=== PATIENT | male | born 1930 | race Caucasian/White ===

== ENCOUNTER 2016-11-25 10:58 | Inpatient (IN) | payer BC, OTHER ==
[~2016-11-25] VITALS: Ht 188 cm; Wt 72.8 kg
[2016-11-25] MEDS ORDERED: TAMS0.4C38 PO (11:24)
[2016-11-25] MEDS ORDERED: SODIUM CHLORIDE 0.9% 1000ML 1,000 ML IV SCH ×2 (11:32→15:00)
[2016-11-25] MEDS ORDERED: ONDANSETRON INJ 2 MG/ML 2 ML VIAL IV STA (11:32)
[2016-11-25 11:47] LABS: BASO % 0.1 %; BASO ABS # 0.01 K/uL (0-0.2); COMPLETE YES; EOS % 0.4 %; HEMATOCRIT 35.6 % (42-52); IG% 0.1 %; LYMPH % 4.5 %; LYMPH ABS # 0.35 K/uL (1.2-3.4); MEAN CELL VOLUME 93.9 fL (80-100); MEAN CORPUSCULAR HEMOGLOBIN 31.9 pg (25-34); MEAN PLATELET VOLUME 10.5 fL (7.4-10.4); MONO % 5.6 %; NEUT % 89.3 %; PLATELET COUNT 161 K/uL (130-400); RED BLOOD COUNT 3.79 M/uL (4.7-6.1); WHITE BLOOD COUNT 7.82 K/uL (4.8-10.8)
[2016-11-25 11:54] LABS: BUN/CREATININE RATIO 28.8 (10-20); CALCIUM 8.2 mg/dl (8.5-10.1); CREATININE 1.2 mg/dl (0.60-1.40); POTASSIUM 3.9 mmol/L (3.5-5.1)
[2016-11-25 11:55] LABS: PROTHROMBIN TIME (PATIENT) 10.8 SECONDS (9.0-12.0)
--- NOTE | 2016-11-25 12:09 | EMERGENCY ROOM VISIT NOTE ---
History Report prepared by Eri: Andrés Cruz Under the Supervision of: Dr. Emeka Mathis M.D. First contact with patient: 11:29 Chief Complaint: SYNCOPE Stated Complaint: SEIZURE Nursing Triage Summary: pt to [facility] ED via EMS after having a sycopal episode last night and then again today where he fell and his witnessed with n/v and incont. of urine and bowel and has c/o left shoulder pain and dizziness pt lives in [facility] with his no numbness or tingling History of Present Illness The patient is a 86 year old male who presents to the Emergency Room with complaints of two episodes of syncope occurring last night and this morning. The patient additionally complains of nausea, vomiting, diarrhea, and a lot of gas. The patient states that he fell during these episodes. The patient denies any abdominal pain. Source of History: patient Onset: last night and this morning Position: other (global) Quality: other (syncopal episodes) Associated Symptoms: + diarrhea, + nausea, + vomiting, No abdominal pain Review of Systems See HPI for pertinent positives & negatives. A total of 10 systems reviewed and were otherwise negative. Past Medical & Surgical Medical Problems: (1) Emphysema lung Family History No pertinent family history Social History Smoking Status: Former Smoker Marital Status: Housing Status: lives with family Occupation Status: retired Current/Historical Medications Scheduled Tamsulosin Hcl (Flomax), 0.4 MG PO HS Allergies Coded Allergies: Penicillins (Verified Allergy, Unknown, HIVES, 11/25/16) Physical Exam Vital Signs Date Time Temp Pulse Resp B/P Pulse Ox O2 Delivery O2 Flow Rate FiO2 11/25/16 14:26 38.1 82 22 133/63 93 Room Air 11/25/16 12:37 72 22 129/61 97 83 136/55 11/25/16 11:02 36.8 63 22 127/67 94 Room Air 11/25/16 11:02 71 Physical Exam CONSTITUTIONAL: Mild distress HEENT: No icterus, moist mucous membranes NECK: No meningismus, trachea is midline. CARDIOVASCULAR: Regular rate, normal perfusion RESPIRATORY: Unlabored breathing. Clear to auscultation. GASTROINTESTINAL: Non-tender GENITOURINARY: No flank tenderness MUSCULOSKELETAL: Full range of motion NEUROLOGIC: No acute gross focal deficits. PSYCHIATRIC: Normal affect SKIN: Normal for ethnicity. Medical Decision & Procedures ER Provider Diagnostic Interpretation: Radiology results as stated below per my review and radiologist interpretation. CT SCAN OF THE BRAIN WITHOUT IV CONTRAST CLINICAL HISTORY: Strokelike symptoms. COMPARISON STUDY: No priors. TECHNIQUE: Unenhanced axial CT scan of the brain is performed from the vertex to the skull base. CT DOSE: 614.27 mGy.cm FINDINGS: Brain parenchyma: There are age-related involutional changes noting moderate patchy subcortical and periventricular microangiopathic change. There is no hemorrhage, mass effect, or evidence of acute territorial ischemia by CT criteria. Lomeli-white matter is preserved. No extra-axial fluid collection is seen. Ventricles, sulci, cisterns: Prominent secondary to involutional change. Intracranial vasculature: There is atherosclerotic calcification of the cavernous carotid and vertebral arteries. Calvarium: Unremarkable. Sinuses and mastoids: Trace mucosal thickening is seen in the right maxillary antrum. The remaining visualized paranasal sinuses are clear. The mastoid air cells are well pneumatized. Orbits: The bony orbits are grossly intact. There are bilateral ocular lens implants. There is been banding of the right ocular globe. IMPRESSION: Senescent changes as above with no hemorrhage, mass effect, or evidence of acute territorial ischemia by CT criteria. Electronically signed by: Florian Quinn M.D. 11/25/2016 12:08 PM Dictated Date/Time: 11/25/2016 12:05 PM SINGLE VIEW CHEST CLINICAL HISTORY: Fever. Seizure. FINDINGS: An AP, portable, upright chest radiograph is obtained. No prior studies are available for comparison at the time of dictation. The examination is degraded by portable technique and patient rotation. The heart is enlarged and there is atherosclerotic calcification of the thoracic aorta. The pulmonary vasculature is noncongested. Emphysema and interstitial thickening are identified. Patchy airspace consolidation is seen at the right lung base and there are small pleural effusions. Apical scarring is observed. No pneumothorax is seen. The skeletal structures are osteopenic. The bony thorax is grossly intact. IMPRESSION: 1. Cardiomegaly and emphysema. 2. There is patchy airspace consolidation at the right lung base. Correlate clinically for evidence of an infectious/inflammatory pneumonitis. Radiographic follow-up to resolution is recommended. 3. Small pleural effusions. Electronically signed by: Florian Quinn M.D. 11/25/2016 12:53 PM Dictated Date/Time: 11/25/2016 12:52 PM Laboratory Results 11/25/16 10:38 Red Blood Count 3.79, Mean Corpuscular Volume 93.9, Mean Corpuscular Hemoglobin 31.9, Mean Corpuscular Hemoglobin Concent 34.0, Mean Platelet Volume 10.5, Neutrophils (%) (Auto) 89.3, Lymphocytes (%) (Auto) 4.5, Monocytes (%) (Auto) 5.6, Eosinophils (%) (Auto) 0.4, Basophils (%) (Auto) 0.1, Neutrophils # (Auto) 6.98, Lymphocytes # (Auto) 0.35, Monocytes # (Auto) 0.44, Eosinophils # (Auto) 0.03, Basophils # (Auto) 0.01 11/25/16 10:38 Test 11/25/16 10:38 11/25/16 11:40 11/25/16 12:22 11/25/16 14:25 White Blood Count 7.82 K/uL (4.8-10.8) Red Blood Count 3.79 M/uL (4.7-6.1) Hemoglobin 12.1 g/dL (14.0-18.0) Hematocrit 35.6 % (42-52) Mean Corpuscular Volume 93.9 fL (80-100) Mean Corpuscular Hemoglobin 31.9 pg (25-34) Mean Corpuscular Hemoglobin Concent 34.0 g/dl (32-36) Platelet Count 161 K/uL (130-400) Mean Platelet Volume 10.5 fL (7.4-10.4) Neutrophils (%) (Auto) 89.3 % Lymphocytes (%) (Auto) 4.5 % Monocytes (%) (Auto) 5.6 % Eosinophils (%) (Auto) 0.4 % Basophils (%) (Auto) 0.1 % Neutrophils # (Auto) 6.98 K/uL (1.4-6.5) Lymphocytes # (Auto) 0.35 K/uL (1.2-3.4) Monocytes # (Auto) 0.44 K/uL (0.11-0.59) Eosinophils # (Auto) 0.03 K/uL (0-0.5) Basophils # (Auto) 0.01 K/uL (0-0.2) RDW Standard Deviation 47.4 fL (36.4-46.3) RDW Coefficient of Variation 13.8 % (11.5-14.5) Immature Granulocyte % (Auto) 0.1 % Immature Granulocyte # (Auto) 0.01 K/uL (0.00-0.02) Prothrombin Time 10.8 SECONDS (9.0-12.0) Prothromb Time International Ratio 1.0 (0.9-1.1) Activated Partial Thromboplast Time 25.0 SECONDS (21.0-31.0) Partial Thromboplastin Ratio 1.0 Anion Gap 10.0 mmol/L (3-11) Est Creatinine Clear Calc Drug Dose 49.7 ml/min Estimated GFR () 63.5 Estimated GFR (Non- 54.8 BUN/Creatinine Ratio 28.8 (10-20) Calcium Level 8.2 mg/dl (8.5-10.1) Total Bilirubin 0.9 mg/dl (0.2-1) Direct Bilirubin 0.2 mg/dl (0-0.2) Aspartate Amino Transf (AST/SGOT) 20 U/L (15-37) Alanine Aminotransferase (ALT/SGPT) 25 U/L (12-78) Alkaline Phosphatase 54 U/L (45-117) Total Protein 7.0 gm/dl (6.4-8.2) Albumin 3.6 gm/dl (3.4-5.0) Procalcitonin 0.15 ng/mL (0-0.5) Bedside Prothrombin Time INR 1.1 (0.9-1.1) Bedside Glucose 119 mg/dl (70-99) Bedside Lactic Acid Venous 1.62 mmol/L (0.90-1.70) Test 11/25/16 14:30 Labs reviewed by ED physician. Medications Administered Medications (Trade) Dose Ordered Sig/Duke Route Start Time Stop Time Status Last Admin Dose Admin Sodium Chloride (Nss 1000ml) 1,000 ml @ 50 mls/hr Q20H IV 11/25/16 11:32 12/25/16 11:31 11/25/16 12:36 50 MLS/HR ECG Indication: syncope Rate (beats per minute): 64 Rhythm: atrial fibrillation Findings: other (Normal axis, non-specific ST findings) ED Course 1129: Past medical records reviewed. The patient was evaluated in room C9. A complete history and physical examination was performed. 1132: Sodium Chloride 1000 ml @ 50 mls/hr IV 1430: I reevaluated the patient, and discussed the findings and the treatment plan with him. 1441: I discussed the patient's case with Dr. Funez. He is going to evaluate the patient for further treatment Medical Decision Differential diagnoses include but are not limited to; sepsis, stroke, gastroenteritis. 86 y/o presented to the ED from [facility] for evaluation. Patient appears generally weak and unwell although he is oriented to person, place and time. He notes only feeling unwell with some nausea and loose stools. Transfer paperwork reviewed and notable for temperature of 100.6. No further information was initially known. Family later arrived at bedside and informed me that the history was likely consistent with a gastroenteritis followed by syncope and aspiration. Son-in-law noted patient to be in A. fib on monitor ( not normally in afib). Followed by the [facility] . (?) infiltrate versus chemical pneumonitis on CXR. Admission arranged with [facility] physician group. Consults Time Called: 1435 Consulting Physician: Dr. Levine Returned Call: 1441 I discussed the patient's case with Dr. Funez. He is going to evaluate the patient for further treatment Impression Primary Impression: Gastroenteritis Additional Impressions: Aspiration into respiratory tract Syncope A-fib Scribe Attestation The scribe's documentation has been prepared under my direction and personally reviewed by me in its entirety. I confirm that the note above accurately reflects all work, treatment, procedures, and medical decision making performed by me. Departure Information Dispostion Being Evaluated By Hospitalist Debora Marrufo M.D. (PCP) Problem Qualifiers
--- NOTE | 2016-11-25 12:54 | DIAGNOSTIC IMAGING REPORT ---
SINGLE VIEW CHEST CLINICAL HISTORY: Fever. Seizure. FINDINGS: An AP, portable, upright chest radiograph is obtained. No prior studies are available for comparison at the time of dictation. The examination is degraded by portable technique and patient rotation. The heart is enlarged and there is atherosclerotic calcification of the thoracic aorta. The pulmonary vasculature is noncongested. Emphysema and interstitial thickening are identified. Patchy airspace consolidation is seen at the right lung base and there are small pleural effusions. Apical scarring is observed. No pneumothorax is seen. The skeletal structures are osteopenic. The bony thorax is grossly intact. IMPRESSION: 1. Cardiomegaly and emphysema. 2. There is patchy airspace consolidation at the right lung base. Correlate clinically for evidence of an infectious/inflammatory pneumonitis. Radiographic follow-up to resolution is recommended. 3. Small pleural effusions. Electronically signed by: Florian Quinn M.D. 11/25/2016 12:53 PM Dictated Date/Time: 11/25/2016 12:52 PM
[2016-11-25] MEDS ORDERED: MAGNESIUM HYDROXIDE SUSP 30 ML UDC PO PRN (14:45)
[2016-11-25] MEDS ORDERED: ALUMINUM/MAGNESIUM/SIMETH (MAALOX MAX) 30 ML UDC PO PRN (14:45)
[2016-11-25] MEDS ORDERED: POLYETHYLENE (MIRALAX) 17 GM PACK PO PRN (14:45)
[2016-11-25 15:31] LABS: MANUAL MICROSCOPIC REQUIRED? YES; REVIEW REQ? NO; URINE APPEARANCE CLEAR (CLEAR); URINE BILIRUBIN NEG (NEG); URINE COLOR YELLOW; URINE NITRITE NEG (NEG); URINE SPECIFIC GRAVITY 1.025 (1.000-1.030); UROBILINOGEN NEG (NEG)
[2016-11-25 15:38] LABS: BENZODIAZEPINE, URINE NEG (NEG); COCAINE,URINE NEG (NEG); PHENCYCLIDINE, URINE NEG (NEG)
[2016-11-25 15:43] LABS: URINE BACTERIA NEG (NEG)
[2016-11-25] MEDS ORDERED: ASPIRIN 81 MG ECTAB PO STA (15:48)
[2016-11-25 15:49] LABS: ZZUR CULT IF INDIC CLEAN CATCH NO
[2016-11-25 16:05] VITALS: BP 128/64; TEMP 38.3; O2SAT 91; Ht 188 cm; Wt 72.8 kg
--- NOTE | 2016-11-25 16:15 | HISTORY & PHYSICAL EXAMINATION ---
DATE OF ADMISSION: 11/25/2016 CHIEF COMPLAINT: Syncope. HISTORY OF PRESENT ILLNESS: This is an 86-year-old male who presents to Emergency Room complaining of 2 episodes of syncopal episode that occurred last night and this morning. He also complains of nausea, vomiting, diarrhea and some gas. ER doctor also mentioned that patient may have aspirated some fluid. The patient denies any abdominal pain. The patient knows that if he feels unwell and complaints of nausea and loose stools, transfer paperwork from [facility] notable for temperature of 100.6. he was experiencing symptoms of gastroenteritis followed by syncope as per daughter. REVIEW OF SYSTEMS: Negative except as above. Ten out of 14 systems were reviewed. PAST MEDICAL HISTORY: Significant for aFib, gastroenteritis, and BPH. FAMILY HISTORY: Significant for coronary artery disease. SOCIAL HISTORY: Does not smoke, does not drink, does not use any drugs and lives at [facility]. CURRENT MEDICATIONS: Tamsulosin 0.4 mg p.o. at bedtime. ALLERGIES: PENICILLIN. PHYSICAL EXAMINATION: VITAL SIGNS: Temperature 38.1, pulse 82, respirations 22, blood pressure 150/90 mmhg on monitor, 93% sats on room air. GENERAL: In mild distress. HEENT: Normocephalic, atraumatic. PERRLA, EOMI. Mouth moist, no lesions. NECK: No JVD. Trachea midline. Thyroid is not enlarged. LUNGS: Clear to auscultation bilateral. No wheezes, no rhonchi. HEART: S1, S2, RRR. ABDOMEN: Soft, nontender, nondistended. Bowel sounds present bilateral. BACK: No CVA tenderness. No flank tenderness. NEUROLOGICAL: Alert, oriented x3. Motor sensory normal. Deep tendon reflexes 2+ bilateral. Babinski negative. EXTREMITIES: 2+ pitting edema b/l PSYCHIATRIC: Mood and judgment are normal. SKIN: No rash. No jaundice. DIAGNOSTIC INTERPRETATION: CT scan of the head - senescent changes, no hemorrhage, no acute territorial ischemia. Chest x-ray - cardiomegaly and emphysema, patchy airspace consolidation in the right lung base, could be infectious or inflammatory pneumonitis, small pleural effusions. LABORATORIES: White count of 7.8, hemoglobin of 12.1, platelets 161. Sodium 143, potassium 3.9, chloride 111, CO2 of 22, BUN of 35, creatinine 1.2, glucose of 142. Calcium 8.2, total bilirubin 0.9. LFTs were normal. Total protein 7.0, albumin 3.6, lactic acid venous 1.62. EKG - 64 beats per minute, atrial fibrillation. ASSESSMENT AND PLAN: This is an 86-year-old male who comes with nausea, vomiting, diarrhea, aspiration and fall. 1. Syncopal episode in the setting of gastroenteritis. The patient received some IV hydration in the Emergency Room. Will order an echo to rule out cardiogenic causes for syncopal episode. However, likely his symptoms related to gastroenteritis and dehydration. 2. Gastroenteritis, cont symptomatic treatment, on clear diet, advance diet as tolerated 3. Dehydration, patient received IVF in ER, but will limit it due to LE edema. 4. Suspected aspiration pneumonitis. Start patient on IV clindamycin since he is ALLERGIC TO PENICILLIN and repeat chest x-ray in am, blood cultures were collected in the Emergency Room. His lactic acid was 1.62. 5. History of atrial fibrillation, but was in normal sinus rhythm for quite some time, currently in atrial fibrillation. He is not on any rate control medicines and his heart rate is in 70s-80s. We will continue to monitor his heart rate. Will start him on aspirin 81 mg daily. 6. Lower extremity edema. Chest x-ray indicating that patient has cardiomegaly. We need to rule out congestive heart failure. Will check echo. We will check intake and output and will check daily weights. Will also limit number of IV fluids and we will repeat the chest x-ray in the morning to see if patient would require IV Lasix. Insert ro catheter. 5. Deep venous thrombosis and gastrointestinal prophylaxis. The patient is a full code. Time spent on doing this admission 50 minutes. MTDD
[2016-11-25 16:23] VITALS: BP 128/64; PULSE 71; TEMP 38.3; O2SAT 91
[2016-11-25] MEDS: CLINDAMYCIN IV 600 MG in DEXTROSE 5% ADD-VANTAGE 50ML 50 ML IV SCH (16:50)
[2016-11-25 19:45] VITALS: BP 133/57; PULSE 73; TEMP 36.9; O2SAT 94
[2016-11-25 20:00] VITALS: O2SAT 94
[2016-11-25] MEDS: TAMSULOSIN HCL 0.4 MG CAP PO SCH (20:52)
[2016-11-25] MEDS: HEPARIN SOD 5000 UNIT/0.5 ML CARP SQ SCH (20:55)
[2016-11-25 23:22] VITALS: BP 103/50; PULSE 75; TEMP 36.4; O2SAT 94
[2016-11-26] VITALS (9 sets, daily range): BP systolic 97–117; BP diastolic 44–58; PULSE 46–69; TEMP 36.4–37.9; O2SAT 93–94
[2016-11-26] MEDS: CLINDAMYCIN IV 600 MG in DEXTROSE 5% ADD-VANTAGE 50ML 50 ML IV SCH ×3 (00:22→15:32)
[2016-11-26 06:32] LABS: BASO % 0.1 %; BASO ABS # 0.01 K/uL (0-0.2); COMPLETE YES; EOS % 0.1 %; HEMATOCRIT 32.5 % (42-52); IG% 0.1 %; LYMPH % 8.2 %; LYMPH ABS # 0.61 K/uL (1.2-3.4); MEAN CELL VOLUME 94.2 fL (80-100); MEAN CORPUSCULAR HEMOGLOBIN 31.3 pg (25-34); MEAN CORPUSCULAR HGB CONC 33.2 g/dl (32-36); MEAN PLATELET VOLUME 9.3 fL (7.4-10.4); MONO % 8.9 %; NEUT % 82.6 %; PLATELET COUNT 141 K/uL (130-400); RED BLOOD COUNT 3.45 M/uL (4.7-6.1)
[2016-11-26 07:05] LABS: BUN/CREATININE RATIO 25.6 (10-20); CREATININE 1.1 mg/dl (0.60-1.40); POTASSIUM 3.8 mmol/L (3.5-5.1)
--- NOTE | 2016-11-26 07:20 | DIAGNOSTIC IMAGING REPORT ---
CHEST ONE VIEW PORTABLE CLINICAL HISTORY: Congestive heart failure. COMPARISON STUDY: Chest radiograph November 25, 2016. FINDINGS: Extensive right lung airspace opacities have progressed since prior exam of November 25, 2016. There may be trace bilateral pleural effusions. No pneumothorax is present. Cardiac size is normal. Mediastinal contours are normal. IMPRESSION: Significant progression of right lung airspace opacity. The appearance favors pneumonia although asymmetric pulmonary edema could appear similar. Electronically signed by: Raymond Leon M.D. 11/26/2016 7:18 AM Dictated Date/Time: 11/26/2016 7:17 AM
[2016-11-26] MEDS ORDERED: PERFLUTREN LIPID MICROSPHERE (DEFINITY) IV ONE (07:52)
[2016-11-26] MEDS: ASPIRIN 81 MG ECTAB PO SCH (08:23)
[2016-11-26] MEDS: HEPARIN SOD 5000 UNIT/0.5 ML CARP SQ SCH ×2 (08:24→20:51)
[2016-11-26] MEDS: LEVOFLOXACIN / D5W 750 MG in PREMIXED IN D5W 150 ML IV SCH (09:02)
[2016-11-26] MEDS: ONDANSETRON INJ 2 MG/ML 2 ML VIAL IV PRN ×2 (11:12→17:13)
--- NOTE | 2016-11-26 12:10 | ECHOCARDIOGRAM REPORT ---
*NOTICE TO RECEIVING [employer] This information is strictly Confidential and protected under [place] law. [place] law prohibits you from making any further disclosure of this information unless further disclosure is expressly permitted by the written consent of the person to whom it pertains or is authorized by law. A general authorization for the release of medical or other information is not sufficient for this purpose. Hospital accepts no responsibility if the information is made available to any other person, INCLUDING THE PATIENT. Interpretation Summary * Name: PRANAV TAO Study Date: 11/26/2016 07:25 AM BP: 105/49 mmHg * Patient Location: C.2E\S\E202\S\1 HR: 78 * : 1930 (M/d/yyyy) Gender: Male Height: 74 in * Age: 86 yrs Ethnicity: CA Weight: 171 lb * Ordering Physician: Den Levine * Referring Physician: UNKNOWN * Performed By: Jefry Piña RDCS * * Reason For Study: Syncope * BSA: 2.0 m2 * -- Conclusions -- * The left ventricle is normal in size. * Left ventricular systolic function is normal. * Ejection Fraction = 60-65%. * The left ventricular wall motion is normal. * The right ventricle is mildly dilated. * The right ventricular systolic function is normal. * There is mild tricuspid regurgitation. * Right ventricular systolic pressure is elevated at 30-40mmHg. Procedure Details * A complete two-dimensional transthoracic echocardiogram was performed (2D, M-mode, Doppler and color flow Doppler). * The study was technically difficult. * There were technical limitations due to patient'sPoor acoustic windows secondary to severe lung disease. * The study was technically difficult, but visualization was adequate with the administration of Definity ultrasound contrast. * A contrast injection of Definity was performed to improve assessment of LV function. * Contrast was injected into an intravenous site in the left arm. * One vial of Definity ultrasound contrast was diluted in normal saline to a total volume of 10 ml. A total of '5' ml of solution was administered during imaging. * Lot # [id number] of Definity utilized for procedure. * Expiration date 1FEB. * The attending nurse who injected the contrast agent was LENA Madison. Left Ventricle * The left ventricle is normal in size. * There is normal left ventricular wall thickness. * Left ventricular systolic function is normal. * Ejection Fraction = 60-65%. * The left ventricular wall motion is normal. Right Ventricle * The right ventricle is mildly dilated. * The right ventricular systolic function is normal. Atria * The left atrial size is normal. * The right atrium is mild to moderately dilated. * The interatrial septum is intact with no evidence for an atrial septal defect. Mitral Valve * The mitral valve is normal in structure and function. * There is trace mitral regurgitation. Tricuspid Valve * The tricuspid valve is normal in structure and function. * There is mild tricuspid regurgitation. * Right ventricular systolic pressure is elevated at 30-40mmHg. Aortic Valve * The aortic valve is trileaflet. * The aortic valve opens well. * No hemodynamically significant valvular aortic stenosis. * Trace aortic regurgitation. Pulmonic Valve * The pulmonary valve is not well seen, but the Doppler examination is normal without significant regurgitation or stenosis. * Trace pulmonic valvular regurgitation. Great Vessels * The aortic root is normal size. * No obvious dissection could be visualized. * The pulmonary artery is not well visualized, but is probably normal size. Pericardium/Pleural * There is no pericardial effusion. Great Vessels * Normal inferior vena cava diameter and respiratory variation suggests normal central venous pressure. MMode 2D Measurements and Calculations IVSd 1.1 cm IVSs 1.3 cm LVIDd 4.7 cm LVIDs 3.1 cm LVPWd 1.1 cm LVPWs 1.4 cm IVS/LVPW 1.0 FS 35.3 % EDV(Teich) 103.4 ml ESV(Teich) 36.6 ml EF(Teich) 64.6 % EDV(cubed) 105.2 ml ESV(cubed) 28.5 ml EF(cubed) 72.9 % % IVS thick 23.1 % % LVPW thick 27.7 % LV mass(C)d 183.1 grams LV mass(C)dI 90.1 grams/m\S\2 LV mass(C)s 135.3 grams LV mass(C)sI 66.6 grams/m\S\2 SV(Teich) 66.8 ml SI(Teich) 32.9 ml/m\S\2 SV(cubed) 76.7 ml SI(cubed) 37.7 ml/m\S\2 Ao root diam 3.3 cm Ao root area 8.5 cm\S\2 ACS 2.0 cm LA dimension 3.6 cm asc Aorta Diam 3.3 cm LA/Ao 1.1 LVOT diam 2.0 cm LVOT area 3.2 cm\S\2 LVAd ap4 31.7 cm\S\2 LVLd ap4 8.0 cm EDV(MOD-sp4) 103.0 ml LVAs ap4 16.4 cm\S\2 LVLs ap4 6.3 cm ESV(MOD-sp4) 35.0 ml EF(MOD-sp4) 66.0 % LVAd ap2 29.4 cm\S\2 LVLd ap2 7.5 cm EDV(MOD-sp2) 96.0 ml LVAs ap2 15.7 cm\S\2 LVLs ap2 6.0 cm ESV(MOD-sp2) 34.0 ml EF(MOD-sp2) 64.6 % SV(MOD-sp4) 68.0 ml SI(MOD-sp4) 33.4 ml/m\S\2 SV(MOD-sp2) 62.0 ml SI(MOD-sp2) 30.5 ml/m\S\2 Doppler Measurements and Calculations MV E max ju 105.1 cm/sec MV dec time 0.15 sec Ao V2 max 125.1 cm/sec Ao max PG 6.3 mmHg Ao max PG (full) 3.7 mmHg KEL(V,A) 2.1 cm\S\2 KEL(V,D) 2.1 cm\S\2 AI max ju 274.5 cm/sec AI max PG 30.1 mmHg AI dec slope 119.5 cm/sec\S\2 AI P1/2t 672.8 msec LV V1 max PG 2.6 mmHg LV V1 max 80.0 cm/sec PA V2 max 79.9 cm/sec PA max PG 2.6 mmHg PI end-d ju 68.3 cm/sec TR max ju 314.2 cm/sec
--- NOTE | 2016-11-26 12:47 | Progress Note ---
Subjective Date of Service: Nov 26, 2016. Subjective pt is predominantly concerned about nausea and vomiting, did have normal lft on presentation, has concern for aspiration pneumonia, and is having fevers still Problem List Medical Problems: (1) A-fib Status: Acute (2) Aspiration into respiratory tract Status: Acute (3) Gastroenteritis Status: Acute (4) Syncope Status: Acute Review of Systems Constitutional: + chills, + fever, + weakness Respiratory: + cough, No dyspnea on exertion, No shortness of breath Cardiac: No chest pain, No edema Abdomen: + diarrhea, No nausea, No pain, No vomiting Musculoskeletal: No joint pain, No muscle pain Male : No dysuria, No urinary frequency Objective Vital Signs Date Time Temp Pulse Resp B/P Pulse Ox O2 Delivery O2 Flow Rate FiO2 11/26/16 04:00 37.6 67 18 105/49 93 Room Air 11/26/16 04:00 93 Room Air 11/26/16 00:01 94 Room Air 11/25/16 23:22 36.4 75 20 103/50 94 Room Air 11/25/16 20:00 94 Room Air 11/25/16 19:45 36.9 73 22 133/57 94 Room Air 11/25/16 16:23 38.3 71 15 128/64 91 Room Air 11/25/16 16:21 76 18 133/66 98 11/25/16 16:05 38.3 15 128/64 91 Room Air 11/25/16 14:26 38.1 82 22 133/63 93 Room Air 11/25/16 12:37 72 22 129/61 97 83 136/55 11/25/16 11:02 36.8 63 22 127/67 94 Room Air 11/25/16 11:02 71 Physical Exam General Appearance: WD/WN, + mild distress Neck: supple, no JVD Respiratory/Chest: + decreased breath sounds (right base), + accessory muscle use, + rales Cardiovascular: no murmur, + irregularly irregular (rate controlled) Abdomen: soft, + abnormal bowel sounds, + tenderness (diffusely) Extremities: no pedal edema, no calf tenderness Neurologic/Psychiatric: alert, oriented x 3 Laboratory Results Last 24 Hours Test 11/25/16 10:38 11/25/16 11:40 11/25/16 12:22 11/25/16 14:25 White Blood Count 7.82 K/uL Red Blood Count 3.79 M/uL Hemoglobin 12.1 g/dL Hematocrit 35.6 % Mean Corpuscular Volume 93.9 fL Mean Corpuscular Hemoglobin 31.9 pg Mean Corpuscular Hemoglobin Concent 34.0 g/dl Platelet Count 161 K/uL Mean Platelet Volume 10.5 fL Neutrophils (%) (Auto) 89.3 % Lymphocytes (%) (Auto) 4.5 % Monocytes (%) (Auto) 5.6 % Eosinophils (%) (Auto) 0.4 % Basophils (%) (Auto) 0.1 % Neutrophils # (Auto) 6.98 K/uL Lymphocytes # (Auto) 0.35 K/uL Monocytes # (Auto) 0.44 K/uL Eosinophils # (Auto) 0.03 K/uL Basophils # (Auto) 0.01 K/uL RDW Standard Deviation 47.4 fL RDW Coefficient of Variation 13.8 % Immature Granulocyte % (Auto) 0.1 % Immature Granulocyte # (Auto) 0.01 K/uL Prothrombin Time 10.8 SECONDS Prothromb Time International Ratio 1.0 Activated Partial Thromboplast Time 25.0 SECONDS Partial Thromboplastin Ratio 1.0 Sodium Level 143 mmol/L Potassium Level 3.9 mmol/L Chloride Level 111 mmol/L Carbon Dioxide Level 22 mmol/L Anion Gap 10.0 mmol/L Blood Urea Nitrogen 35 mg/dl Creatinine 1.20 mg/dl Est Creatinine Clear Calc Drug Dose 49.7 ml/min Estimated GFR () 63.5 Estimated GFR (Non- 54.8 BUN/Creatinine Ratio 28.8 Random Glucose 142 mg/dl Calcium Level 8.2 mg/dl Total Bilirubin 0.9 mg/dl Direct Bilirubin 0.2 mg/dl Aspartate Amino Transf (AST/SGOT) 20 U/L Alanine Aminotransferase (ALT/SGPT) 25 U/L Alkaline Phosphatase 54 U/L Total Protein 7.0 gm/dl Albumin 3.6 gm/dl Procalcitonin 0.15 ng/mL Bedside Prothrombin Time INR 1.1 Bedside Glucose 119 mg/dl Bedside Lactic Acid Venous 1.62 mmol/L Urine Color YELLOW Urine Appearance CLEAR Urine pH 6.0 Urine Specific [place] 1.025 Urine Protein 1+ Urine Glucose (UA) NEG Urine Ketones NEG Urine Occult Blood TRACE Urine Nitrite NEG Urine Bilirubin NEG Urine Urobilinogen NEG Urine Leukocyte Esterase NEG Urine RBC 5-10 /hpf Urine WBC 1-5 /hpf Urine Epithelial Cells 5-10 /lpf Urine Bacteria NEG Urine Opiates Screen NEG Urine Methadone, Qualitative NEG Urine Barbiturates NEG Urine Phencyclidine (PCP) Level NEG Ur Amphetamine/Methamphetamine NEG MDMA (Ecstasy) Screen NEG Urine Benzodiazepines Screen NEG Urine Cocaine Metabolite NEG Urine Marijuana (THC) NEG Test 11/25/16 14:30 11/26/16 06:06 Influenza Type A Antigen Neg for Influ A Influenza Type B Antigen Neg for Influ B White Blood Count 7.40 K/uL Red Blood Count 3.45 M/uL Hemoglobin 10.8 g/dL Hematocrit 32.5 % Mean Corpuscular Volume 94.2 fL Mean Corpuscular Hemoglobin 31.3 pg Mean Corpuscular Hemoglobin Concent 33.2 g/dl Platelet Count 141 K/uL Mean Platelet Volume 9.3 fL Neutrophils (%) (Auto) 82.6 % Lymphocytes (%) (Auto) 8.2 % Monocytes (%) (Auto) 8.9 % Eosinophils (%) (Auto) 0.1 % Basophils (%) (Auto) 0.1 % Neutrophils # (Auto) 6.10 K/uL Lymphocytes # (Auto) 0.61 K/uL Monocytes # (Auto) 0.66 K/uL Eosinophils # (Auto) 0.01 K/uL Basophils # (Auto) 0.01 K/uL RDW Standard Deviation 47.6 fL RDW Coefficient of Variation 13.9 % Immature Granulocyte % (Auto) 0.1 % Immature Granulocyte # (Auto) 0.01 K/uL Sodium Level 142 mmol/L Potassium Level 3.8 mmol/L Chloride Level 108 mmol/L Carbon Dioxide Level 23 mmol/L Anion Gap 11.0 mmol/L Blood Urea Nitrogen 28 mg/dl Creatinine 1.10 mg/dl Est Creatinine Clear Calc Drug Dose 52.6 ml/min Estimated GFR () 70.6 Estimated GFR (Non- 60.9 BUN/Creatinine Ratio 25.6 Random Glucose 116 mg/dl Calcium Level 8.0 mg/dl Assessment and Plan 86 with gastrointestinal symptoms, syncope and possible aspiration pneumonia, fevers and persistent GI upset Syncopal monitor and hydrate, still no direct cause for nausea, will add ppi and carafate Aspiration pneumonia. IV clindamycin and add levaquin for gram negative pneumonia coverage s Atrial fibrillation, in and out of afib rate controlled is listed in history, ECHO is normal EF with no RWMA Lower extremity edema, IV Lasix. monitor output ro catheter. a full code.
[2016-11-26] MEDS: SUCRALFATE 1 GM/10 ML UDC PO SCH ×3 (13:37→19:44)
[2016-11-26] MEDS: PANTOprazole INJ 40 MG in SYRINGE 0 ML IV SCH (19:44)
[2016-11-26] MEDS: TAMSULOSIN HCL 0.4 MG CAP PO SCH (19:44)
[2016-11-26] MEDS ORDERED: PROMETHAZINE HCL INJ 12.5 MG in SODIUM CHLORIDE 0.9% 50ML 50 ML IV ONE (20:00)
[2016-11-27] MEDS: CLINDAMYCIN IV 600 MG in DEXTROSE 5% ADD-VANTAGE 50ML 50 ML IV SCH ×3 (00:38→16:57)
[2016-11-27 04:00] VITALS: BP 106/52; PULSE 74; TEMP 37; O2SAT 95
[2016-11-27 07:41] VITALS: BP 102/58; PULSE 66; TEMP 37.6; O2SAT 93
[2016-11-27] MEDS: SUCRALFATE 1 GM/10 ML UDC PO SCH ×4 (09:33→20:38)
[2016-11-27] MEDS: PANTOprazole INJ 40 MG in SYRINGE 0 ML IV SCH (09:33)
[2016-11-27] MEDS: ASPIRIN 81 MG ECTAB PO SCH (09:34)
[2016-11-27] MEDS: HEPARIN SOD 5000 UNIT/0.5 ML CARP SQ SCH (09:35)
[2016-11-27] MEDS: ACETAMINOPHEN 325 MG TAB PO PRN ×2 (09:41→18:08)
[2016-11-27] MEDS: LEVOFLOXACIN / D5W 750 MG in PREMIXED IN D5W 150 ML IV SCH (10:10)
--- NOTE | 2016-11-27 10:17 | CARDIOLOGY CONSULTATION ---
DATE OF CONSULTATION: 11/27/2016 REQUESTING: Dr. Jeff Santiago. CUSTOMER SERVICE DRIVER: Dm Wilson D.O, [facility]. REASON FOR CONSULTATION: Atrial fibrillation and syncope x2. Dear Colten: Thank you for requesting a cardiology consultation on Kel with regards to his atrial fibrillation and episodes of syncope at home associated with significant nauseousness. As you know, he is a pleasant 86-year-old gentleman, who notes a number of years ago he was in the hospital, he is not sure why he was in the hospital, but he was told he had atrial fibrillation. He had what describes a workup including monitoring in the hospital and then an event recorder at home. He describes being contacted by the physician, who said that there was nothing on the monitor to worry about. Of note, it sounds like his atrial fibrillation at that admission was asymptomatic. Starting Sunday evening, he had significant nausea and vomiting and diarrhea to the point that it was rather intractable. He was trying to get his 's medications and when walking into the kitchen he had a period where he felt like he was going to throw up. He tried to stop that from happening and then had a brief syncopal episode. He describes it as lasting a couple of seconds. He remembers everything that happened up until the event as well as after. He notes shortly thereafter he had another episode where he again felt very nauseous. He was standing at the kitchen sink thinking he may vomit, the next thing he knows he hit his arm on the sink and again had a very brief loss of consciousness. He notes he has not been able to keep anything down since Sunday night. Given the episode, he came to the Emergency Room. He has been rehydrated. He denies any chest pain, chest pressure, chest heaviness, shortness of breath, PND or orthopnea. Denies any palpitations or fluttering, he was feeling his heart racing suggesting his AFib is asymptomatic. On the monitor here he is in atrial fibrillation. His rate is well controlled on no AV catrachito blockers. He does describe the last evening coughing up some bloody secretions. Additionally, his x-ray is consistent with aspiration pneumonia. He notes the nausea is significantly improved and this morning he actually feels like he is starting to get an appetite. He denies a cough, fevers, chills, sweats. He denies any dark stools or black stools. He has significant issues of peripheral neuropathy and walks with a walker and describes himself as unsteady on his feet. PAST MEDICAL HISTORY: Atrial fibrillation, gastroenteritis, BPH, prostate cancer status post radiation therapy, peripheral neuropathy with need to walk with a walker. FAMILY HISTORY: Noncontributory. SOCIAL HISTORY: He is . He denies any tobacco or alcohol. He lives at [facility] with his . OUTPATIENT MEDICATIONS: Flomax. ALLERGIES: PENICILLIN. PHYSICAL EXAMINATION: GENERAL: He is awake, alert, oriented x3. He does look somewhat frail. VITAL SIGNS: His heart rate is 66. His blood pressure 102/58. His respirations are 16. He sats 93% on room air. HEENT: 2+ carotid upstrokes. No evidence of carotid bruits. Jugular venous pressure did not appear elevated. His sclerae is anicteric. His hearing is mildly diminished. LUNGS: Decreased breath sounds in the right lung field. The left lung de la torer were clear to auscultation. HEART: Irregular rate and rhythm with occasional ectopy. No appreciable murmurs, rubs or gallops. ABDOMEN: Soft, nontender, nondistended, positive bowel sounds. EXTREMITIES: No clubbing, cyanosis or edema. PSYCHIATRIC: His affect appeared appropriate. CT of his head, no intracranial bleeding. Chest x-ray consistent with right lung airspace disease. LABORATORY STUDIES: Sodium 142, potassium 3.8, BUN 28, creatinine of 1.1. His AST and ALT are normal. Rapid flu was negative. Echocardiogram: Normal LV size and function, EF 60%-65%, no wall motion abnormalities, mildly dilated right ventricle, normal RV systolic function, no significant valvular heart disease. IMPRESSION: 1. Asymptomatic atrial fibrillation. 2. Syncopal episode in the phase of significant nauseousness and probable dehydration. 3. Recent episode of hemoptysis. 4. Significant gait instability requiring a walker for ambulation. Likely his syncopal episodes are all vagaly mediated. He was significantly nauseous with both episodes, although he was not vomiting and it sounds like he was trying to get the episodes to go away. At this point, on the monitor he has not had any pauses and I would not recommend pacemaker implantation unless we can prove that he is having pauses outside of his nausea and vomiting. If he would have episodes of lightheadedness or dizziness after his discharge, he would need to wear an event recorder to rule this out. His atrial fibrillation is asymptomatic and he notes his heart rate at home was in the 60s and 70s and even on his EKGs here he is in the 60s and 70s in atrial fibrillation and likely he has had it on and off and is unaware of it. Given his gait instability and some hemoptysis today, I would not recommend anticoagulation. Additionally, given the fact he is not on any AV catrachito blockers and his heart rate is relatively well controlled, it does suggest he has underlying conduction disease and does put him at risk for having higher levels of AV block. At this point, I would not place him on any AV catrachito blockers. I would not recommend anticoagulation. Will continue to follow him on the monitor to make sure he does not have any significant pauses or periods of significant bradycardia. Of note, the nurses described his heart rate while sleeping in the 30s and as long as he is asymptomatic with that I would not intervene. I would recommend rehydration and treating his electrolytes and then having him ambulate when he is feeling better and make sure he is not lightheaded or dizzy with ambulation. We will continue to follow with you. ELI
[2016-11-27 11:29] VITALS: BP 105/58; PULSE 88; TEMP 36.5; O2SAT 93
[2016-11-27 16:00] VITALS: BP 129/74; PULSE 71; TEMP 37; O2SAT 98
--- NOTE | 2016-11-27 19:24 | Hospitalist Progress Note ---
Hospitalist Progress Note Date of Service Nov 27, 2016. Subjective Pt evaluation today including: conversation w/ patient, physical exam, chart review, lab review, review of inpatient medication list PO Intake: richy reg diet today, no N/V Voiding: ro catheter in place Pt still feeling a little lightheaded with standing up. He has not had further syncope. He has been having quite a bit of hemoptysis in the last 24 hrs and shows me a sample in a cup about a 50 cent piece in size. He said he has coughed up blood about 6-7 times today, once was about 8 cm in diameter as per his estimation. No SOB, no CP Constitutional: No fever ENT: No sore throat Respiratory: + cough, + hemoptysis, + sputum, No shortness of breath Cardiovascular: No chest pain Abdomen: No diarrhea, No nausea, No pain, No vomiting Male : + incontinence (and requests his Ro to remain in) Neurologic: + numbness/tingling (chronic in feet) Objective Vital Signs Date Time Temp Pulse Resp B/P Pulse Ox O2 Delivery O2 Flow Rate FiO2 11/27/16 16:00 37.0 71 18 129/74 98 11/27/16 16:00 Room Air 11/27/16 12:00 Room Air 11/27/16 11:29 36.5 88 16 105/58 93 Room Air 11/27/16 08:00 Room Air 11/27/16 07:41 37.6 66 16 102/58 93 Room Air 11/27/16 04:00 Room Air 11/27/16 04:00 37.0 74 18 106/52 95 Room Air 11/27/16 00:01 Room Air 11/26/16 23:00 37.3 46 17 97/49 93 Room Air 11/26/16 20:12 37.1 69 17 117/54 94 Room Air 11/26/16 20:00 Room Air Physical Exam General Appearance: WD/WN, no apparent distress Eyes: normal inspection, sclerae normal Neck: trachea midline Respiratory/Chest: no respiratory distress, no accessory muscle use, + crackles (at right lower lung field, otherwise CTAB) Cardiovascular: no edema, no gallop, no murmur, + irregularly irregular Abdomen: normal bowel sounds, non tender, soft, no organomegaly, + pertinent finding (Ro in palce draining yellow clear urine) Extremities: non-tender, normal inspection, no pedal edema, no calf tenderness Neurologic/Psychiatric: alert, normal mood/affect, oriented x 3 Skin: normal color, warm/dry, no rash Assessment and Plan 86 with nausea/vomiting, likely vasovagal syncope and probable aspiration pneumonia as a result of previous vomiting, fevers. Also with slow A-fib. Syncope, PAF rate controlled-likely vasovagal as was associated with nausea/ vomiting from GI illness at home. Does have slow A-fib sometimes into the 30s-40s while sleeping but otherwise asymptomatic. ECHO: * The left ventricle is normal in size. * Left ventricular systolic function is normal. * Ejection Fraction = 60-65%. * The left ventricular wall motion is normal. * The right ventricle is mildly dilated. * The right ventricular systolic function is normal. * There is mild tricuspid regurgitation. * Right ventricular systolic pressure is elevated at 30-40mmHg. -Cardiology consult appreciated -continue tele monitoring -if has symptomatic bradycardia outside of vasovagal episode, may need PPM -not on AC for fall risk with peripheral neuropathy and syncope -no AV catrachito blockers recommended due to bradycardia and could have underlying conduction problems Aspiration pneumonia, hemoptysis. -continue IV clindamycin and added levaquin for gram negative pneumonia coverage -Hemoptysis is likely from gastric contents irritating lungs but will consult Pulm for further recommendations in case needs bronchoscopy H/o prostate CA, BPH -on FLomax -requesting Ro to stay in as he has chronic incontinence and frequency and has peripheral neuropathy making it difficult to go to bathroom quickly while still feeling a little lightheaded [id number] to po PPI, add on probiotics at pt's request, NO anticoagulation due to hemoptysis, SCDs Full code.
[2016-11-27 19:40] VITALS: BP 120/68; PULSE 67; TEMP 36.9; O2SAT 96
[2016-11-27] MEDS ORDERED: LACTOBACILLUS ACIDOPHILUS (FLORANEX) TAB PO ONE (19:45)
[2016-11-27 20:00] VITALS: O2SAT 96
[2016-11-27] MEDS: TAMSULOSIN HCL 0.4 MG CAP PO SCH (20:38)
[2016-11-28] VITALS (7 sets, daily range): BP systolic 101–139; BP diastolic 47–76; PULSE 58–88; TEMP 36.6–37; O2SAT 94–98
[2016-11-28] MEDS: ACETAMINOPHEN 325 MG TAB PO PRN ×2 (05:44→14:01)
[2016-11-28 06:21] LABS: HEMATOCRIT 31.9 % (42-52); MEAN CELL VOLUME 89.9 fL (80-100); MEAN CORPUSCULAR HGB CONC 34.5 g/dl (32-36); MEAN PLATELET VOLUME 9.9 fL (7.4-10.4); PLATELET COUNT 147 K/uL (130-400); RED BLOOD COUNT 3.55 M/uL (4.7-6.1); WHITE BLOOD COUNT 6.25 K/uL (4.8-10.8)
[2016-11-28 06:54] LABS: BUN/CREATININE RATIO 17.5 (10-20); CALCIUM 8.1 mg/dl (8.5-10.1); CREATININE 1.1 mg/dl (0.60-1.40); MAGNESIUM 2.2 mg/dl (1.8-2.4); POTASSIUM 3.7 mmol/L (3.5-5.1)
[2016-11-28] MEDS: CLINDAMYCIN IV 600 MG in DEXTROSE 5% ADD-VANTAGE 50ML 50 ML IV SCH ×4 (09:00→16:56)
--- NOTE | 2016-11-28 09:00 | Cardiology Follow-Up ---
Subjective General Date of Service: Nov 28, 2016. Pt evaluation today including: conversation w/ patient, chart review, lab review, review of studies, conversation w/ pre owned sales consultant History of Present Illness The patient is a 86 year old male Allergies Coded Allergies: Penicillins (Verified Allergy, Unknown, HIVES, 11/25/16) Social History Smoking Status: Unknown if Ever Smoked Hx Tobacco Use In Past Year?: No Hx Alcohol Use - Type And Amou: Yes (1 beer month) Hx Substance Use - Type And Am: No Problem List Medical Problems: (1) A-fib Status: Acute (2) Aspiration into respiratory tract Status: Acute (3) Gastroenteritis Status: Acute (4) Syncope Status: Acute Review of Systems Respiratory: + cough, + sputum (hemoptysis), No dyspnea at rest, No shortness of breath Cardiac: No chest pain, No edema, No palpitations Physical Exam Vital Signs Last Vital Signs Documentation Date Time Temp Pulse Resp B/P Pulse Ox O2 Delivery O2 Flow Rate FiO2 11/28/16 08:06 36.6 84 18 139/63 96 11/28/16 04:00 Room Air Physical Exam Constitutional: General Apperance: heathly-appearing Level of Distress: NAD Lungs: Respiratory effort: no dyspnea Auscultation: no wheezing, no rales/crackles, no rhonchi, decreased breath sounds (bases) Cardiovascular: Heart Auscultation: no murmurs, no rubs, irregular rate rhythm Abdomen: Bowel Sounds: normal Inspection & Palpation: soft, non-distended, no tenderness, guarding & rebound Extremities: no edema Assessment and Plan Assessment and Plan IMPRESSION: 1. Asymptomatic atrial fibrillation. 2. Syncopal episode in the face of significant nauseousness and probable dehydration. 3. Ongoing episodes of hemoptysis. 4. Significant gait instability requiring a walker for ambulation. 5. Frequent PVC's Rates controlled on monitor, no pauses frequent PVC's If HR increases as he gets better we can add low dose BB for Afib rate and to suppress PVC's No plans for AC with hemoptysis, CT chest per pulmonary today Laboratory Results Last 24 Hours Test 11/28/16 05:43 White Blood Count 6.25 K/uL Red Blood Count 3.55 M/uL Hemoglobin 11.0 g/dL Hematocrit 31.9 % Mean Corpuscular Volume 89.9 fL Mean Corpuscular Hemoglobin 31.0 pg Mean Corpuscular Hemoglobin Concent 34.5 g/dl RDW Standard Deviation 44.5 fL RDW Coefficient of Variation 13.4 % Platelet Count 147 K/uL Mean Platelet Volume 9.9 fL Sodium Level 142 mmol/L Potassium Level 3.7 mmol/L Chloride Level 107 mmol/L Carbon Dioxide Level 25 mmol/L Anion Gap 10.0 mmol/L Blood Urea Nitrogen 19 mg/dl Creatinine 1.10 mg/dl Est Creatinine Clear Calc Drug Dose 52.2 ml/min Estimated GFR () 70.6 Estimated GFR (Non- 60.9 BUN/Creatinine Ratio 17.5 Random Glucose 96 mg/dl Calcium Level 8.1 mg/dl Magnesium Level 2.2 mg/dl
[2016-11-28] MEDS: SUCRALFATE 1 GM/10 ML UDC PO SCH ×4 (09:02→20:43)
[2016-11-28] MEDS: LACTOBACILLUS ACIDOPHILUS (FLORANEX) TAB PO SCH ×3 (09:07→16:55)
[2016-11-28] MEDS: PANTOprazole SOD 40 MG TAB PO SCH (09:07)
[2016-11-28] MEDS: LEVOFLOXACIN / D5W 750 MG in PREMIXED IN D5W 150 ML IV SCH (09:41)
--- NOTE | 2016-11-28 09:50 | PULMONARY CONSULTATION ---
DATE OF CONSULTATION: 11/28/2016 TIME: 8:55 a.m. REPORT OF CONSULTATION: The patient was seen in room 202. He is an 86-year-old male who developed nausea, vomiting and diarrhea on the late night of 11/24/2016 and into the morning of 11/25/2016. He estimates that he might have filled half to two-thirds of a large hand. He does not recall seeing any blood in his vomitus, he was not 100% certain, however. On 08/25/2016, he had 2 episodes of apparent syncope. He was feeling very weak. He developed nausea. He felt like he was going to throw up. He tried to stop that from happening and then had a brief syncopal episode. This lasted a few seconds. Later on he had a second event that was similar. He was admitted with severe gastroenteritis and what was thought to be a probable right basilar infiltrate, presumably from aspiration. The patient subsequently began expectorating some blood. He had several episodes where he coughed up blood, about the size of a half dollar. This might have been 7 or 8 times. He had never coughed up blood in the past. He denies shortness of breath. The patient denies ever having had any lung trouble in the past. He had expectorated some blood this morning and he had it in tissue. It clearly was fairly fresh. It did not appear to be mixed with mucus. He is not having chest pains. The patient denies having chills or fevers or sweats. It appears that his maximum temperature since admission had been 38.3 which was on 11/25/2016. On 11/26/2016, the maximum temperature was 37.9 and yesterday the maximum temperature was 37.6. Thus far today, he is afebrile. The patient states he is not normally short of breath. He can walk around without difficulty, although he uses a cane if he is out of the house and he uses a walker inside their home. He reportedly lives at [facility]. PAST SURGICAL HISTORY: Cataracts. PAST MEDICAL HISTORY: 1. Cancer of the prostate 1998. 2. Neuropathy diagnosed 2005. 3. Possible history of cardiac arrhythmia in the past. 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 SOCIAL HISTORY: Tobacco, none since 1966. Previously, he smoked 1 pack per day for 20 years. ETOH -- is described as occasional. ALLERGIES: PENICILLIN. FAMILY HISTORY: Significant for coronary artery disease. REVIEW OF SYSTEMS: GENERAL: The patient's energy level prior to this has been good. He did relate that his had been ill with a gastrointestinal illness but it was about 10 days before his. NEUROLOGIC: Two episodes of presyncope as noted above. OPHTHALMIC: No visual complaints. ENT: Denies nasal congestion or coryza. CARDIAC: He is having atrial fibrillation during this hospital stay. He denies having chest pains or palpitations. GASTROINTESTINAL: Denies symptoms at present. His appetite is slowly returning. He is no longer nauseated. Otherwise as noted above. GENITOURINARY: The patient has a [place] catheter in place. DERMATOLOGIC: No rashes or edema. ENDOCRINE: No lymphadenopathy. MUSCULOSKELETAL: No complaints except for the neuropathy which he exhibits in his feet. PHYSICAL EXAMINATION: GENERAL: The patient is a pleasant 86-year-old male who was cooperative, alert and oriented. He was in no distress. VITAL SIGNS: Temperature is 36.6. Weight is 75.2 kilograms with a BMI of 21.3. HEENT: Eye exam suggested implants bilaterally. Nares were clear. Mouth exam showed no erythema or exudate. NECK: Palpation of the neck revealed no lymph nodes or masses. The neck veins were not distended. CHEST: Normal expansion and development. CARDIOVASCULAR: Heart rate was 84 per minute. The rhythm was irregular. Blood pressure 139/63. LUNGS: Lung de la torre revealed rales on the right chest posteriorly. Left chest was clear. Respiratory rate was 18 breaths per minute, it was not at all labored. Oxygen saturation was 96% on room air. ABDOMEN: Soft. Bowel sounds were normal. There was no tenderness to palpation, masses or organomegaly. EXTREMITIES: Showed no cyanosis, clubbing or edema. Electrolytes today show sodium 142, potassium 3.7, chloride 107, bicarbonate 25. BUN is 19 with a creatinine of 1.1. It is notable the BUN on admission was 35 and the creatinine on admission was 1.2. Magnesium was 2.2 today. INR was 1.0 with PTT of 25. Urinalysis showed +1 protein and 5-10 RBCs. White count today is 6.25. Hemoglobin is 11. Platelets 147,000. White count on admission was 7.82. Hemoglobin was 12.1. Flu test was negative. Drug screen was negative. CAT scan of the head on admission showed senescent changes with no acute change. Chest x-ray on admission suggested emphysema. There was patchy airspace consolidation at the right lung base. Small pleural effusions were suggested. Repeat x-ray done 11/26/2016 showed a significant progression of right lung airspace opacity such that it is now diffuse. Echocardiogram was done. This showed ejection fraction normal at 60-65%. The right ventricle was mildly dilated. The right ventricular systolic pressure was elevated at 30-40 mm. IMPRESSION: 1. Hemoptysis. 2. Aspiration pneumonia. 3. Syncope. 4. Possible emphysema as suggested by x-ray. COMMENTS: The patient has had a moderate amount of hemoptysis in the past 48 hours. The etiology is unclear. Typically, an aspiration pneumonia does not result in hemoptysis. The possibility of an esophageal bleed related to severe vomiting could exist. The patient is not on any anticoagulation despite the atrial fibrillation. Thus, we cannot implicate anticoagulation as a reason for the hemoptysis. I agree with treating him with antibiotics. Currently, he is on levofloxacin and clindamycin. He seems to be improving. I do believe he should have a CAT scan of the chest to search for occult causes for hemoptysis. The patient was somewhat reluctant because he was concerned about too much radiation. I explained to him that this would be totally appropriate with the amount of hemoptysis he has had and that the radiation of having just 2 CAT scans in 1 hospital stay would not be typically thought of overly significant. He has not had a lot of radiation exposure in the past. We will do the CAT scan without contrast as I believe that should be adequate for him. I would be hesitant to give him dye unless absolutely necessary in light of the degree of mild dehydration that existed from the acute gastroenteritis. Thank you for asking me to assist in his care.
--- NOTE | 2016-11-28 11:26 | DIAGNOSTIC IMAGING REPORT ---
CT SCAN OF THE CHEST WITHOUT IV CONTRAST CLINICAL HISTORY: Hemoptysis. COMPARISON STUDY: Chest x-ray dated 11/26/16. TECHNIQUE: CT scan of the thorax was performed from the thoracic inlet to the upper abdomen. Images are reviewed in the axial, sagittal, and coronal planes. IV contrast was not administered for this examination as per the front clinician. CT DOSE: 264.46 mGy.cm FINDINGS: Thyroid: Atrophic. Thoracic aorta: There is atherosclerotic calcification of the thoracic aorta, which is normal in caliber and demonstrates standard 3-vessel arch anatomy. Heart: The heart is mildly enlarged and there is a small pericardial effusion. The coronary arteries are densely calcified. There is diminished attenuation of the cardiac blood pool as compared to the myocardium suggesting anemia. The pulmonary trunk is normal in caliber. Lungs and pleural spaces: Evaluation of the lung parenchyma is modestly degraded by respiratory motion artifact. Emphysema is noted. Small pleural effusions are identified. There is airspace consolidation throughout the right lung, greatest in the right lower lobe. No consolidative change is identified in the left lung. The trachea and central airways are patent. Mediastinum: There is no mediastinal lymphadenopathy. Erica: Not well assessed without IV contrast. Axillae: There is no axillary lymphadenopathy. Upper abdomen: A small hiatal hernia is identified. Pneumobilia is noted and there is evidence of cholecystectomy. Visualized portions of the kidneys show cortical atrophy. Parapelvic cysts are suggested on the left. There is significant glandular atrophy of the visualized pancreas. Advanced atherosclerotic calcification is noted in the partially imaged abdominal aorta. Skeletal structures: The skeletal structures are osteopenic. Degenerative change is present throughout the thoracic spine. Arthritic change is also seen in the shoulders. No lytic or blastic bony lesions are seen. IMPRESSION: 1. Cardiomegaly and emphysema. 2. Patchy airspace consolidation is seen throughout the right lung. The appearance is typical for pneumonia. Radiographic follow-up to resolution is recommended. 3. Small pleural effusions. 4. Hiatal hernia. 5. Pneumobilia is noted. There are changes of previous cholecystectomy and this is likely related to history of sternotomy. Correlation with the patient's surgical history will be required. 6. Additional changes as above. Electronically signed by: Florian Quinn M.D. 11/28/2016 11:25 AM Dictated Date/Time: 11/28/2016 11:20 AM
--- NOTE | 2016-11-28 16:06 | Hospitalist Progress Note ---
Hospitalist Progress Note Date of Service Nov 28, 2016. Subjective Pt evaluation today including: conversation w/ patient, physical exam, chart review, lab review, review of inpatient medication list Voiding: ro catheter in place Has c/o a headache present since he arrived on the floor after admission, pain located frontal and currently on left side. Feels throbbing, was 8/10, now 6/10 after tylenol. No associated N/V, no photo/phonophobia, no numbness/tingling that is new. No h/o headaches. He usually drinks tea every AM and coffee every day at lunch. Here he has been getting decaf drinks Constitutional: No fever Respiratory: + cough, + hemoptysis, + sputum Cardiovascular: No chest pain Abdomen: No nausea, No pain, No vomiting All Other Systems: Reviewed and Negative Objective Vital Signs Date Time Temp Pulse Resp B/P Pulse Ox O2 Delivery O2 Flow Rate FiO2 11/28/16 11:51 37.0 71 18 139/68 98 11/28/16 11:45 Room Air 11/28/16 08:06 36.6 84 18 139/63 96 11/28/16 07:30 Room Air 11/28/16 04:00 Room Air 11/28/16 03:48 36.8 78 20 127/66 94 Room Air 11/28/16 00:20 37.0 58 21 112/47 95 Room Air 11/27/16 23:59 Room Air 11/27/16 20:00 96 Room Air 11/27/16 19:40 36.9 67 16 120/68 96 11/27/16 16:00 37.0 71 18 129/74 98 11/27/16 16:00 Room Air Physical Exam General Appearance: WD/WN, no apparent distress Eyes: normal inspection, PERRL, EOMI, sclerae normal ENT: hearing grossly normal, pharynx normal Neck: supple, trachea midline, + pertinent finding (no TTP over posterior neck) Respiratory/Chest: no respiratory distress, no accessory muscle use, + crackles (and rhonchi right middle lung field and base, otherwise CTAB) Cardiovascular: no edema, no gallop, no murmur, + irregularly irregular Abdomen: normal bowel sounds, non tender, soft, no organomegaly Extremities: non-tender, normal inspection, no pedal edema, no calf tenderness Neurologic/Psychiatric: 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, alert, normal mood/affect, oriented x 3 Skin: normal color, warm/dry, no rash Lymphatic: no adenopathy Laboratory Results Last 24 Hours Test 11/28/16 05:43 White Blood Count 6.25 K/uL Red Blood Count 3.55 M/uL Hemoglobin 11.0 g/dL Hematocrit 31.9 % Mean Corpuscular Volume 89.9 fL Mean Corpuscular Hemoglobin 31.0 pg Mean Corpuscular Hemoglobin Concent 34.5 g/dl RDW Standard Deviation 44.5 fL RDW Coefficient of Variation 13.4 % Platelet Count 147 K/uL Mean Platelet Volume 9.9 fL Sodium Level 142 mmol/L Potassium Level 3.7 mmol/L Chloride Level 107 mmol/L Carbon Dioxide Level 25 mmol/L Anion Gap 10.0 mmol/L Blood Urea Nitrogen 19 mg/dl Creatinine 1.10 mg/dl Est Creatinine Clear Calc Drug Dose 52.2 ml/min Estimated GFR () 70.6 Estimated GFR (Non- 60.9 BUN/Creatinine Ratio 17.5 Random Glucose 96 mg/dl Calcium Level 8.1 mg/dl Magnesium Level 2.2 mg/dl Assessment and Plan 86 with nausea/vomiting from gastroenteritis, likely vasovagal syncope and probable aspiration pneumonia as a result of previous vomiting, with fevers and development of hemoptysis. Also with slow A-fib. Syncope, PAF rate controlled-likely vasovagal as was associated with nausea/ vomiting from GI illness at home. Does have slow A-fib sometimes into the 30s-40s while sleeping but otherwise asymptomatic. Improved, no significant events on tele, no further syncope ECHO: * The left ventricle is normal in size. * Left ventricular systolic function is normal. * Ejection Fraction = 60-65%. * The left ventricular wall motion is normal. * The right ventricle is mildly dilated. * The right ventricular systolic function is normal. * There is mild tricuspid regurgitation. * Right ventricular systolic pressure is elevated at 30-40mmHg. -Cardiology consult appreciated -continue tele monitoring -if has symptomatic bradycardia outside of vasovagal episode, may need PPM -not on AC for fall risk with peripheral neuropathy and syncope -no AV catrachito blockers recommended due to bradycardia and could have underlying conduction problems unless HR goes higher as per Cardio notes Aspiration pneumonia, hemoptysis-persists today CT Chest shows: 1. Cardiomegaly and emphysema. 2. Patchy airspace consolidation is seen throughout the right lung. The appearance is typical for pneumonia. Radiographic follow-up to resolution is recommended. 3. Small pleural effusions. 4. Hiatal hernia. 5. Pneumobilia is noted. There are changes of previous cholecystectomy and this is likely related to history of sternotomy. Correlation with the patient's surgical history will be required. -continue IV clindamycin and added levaquin for gram negative pneumonia coverage -Hemoptysis is likely from gastric contents irritating lungs -appreciate consult Pulm for further recommendations in case needs bronchoscopy H/o prostate CA, BPH -on FLomax -requesting Ro to stay in as he has chronic incontinence and frequency and has peripheral neuropathy making it difficult to go to bathroom quickly Headache: Neuro exam today normal, likely caffeine withdrawal as is on AHA diet , had neg head CT on admission, could be side effect from antibiotic. -try cup of reg coffee now -benadryl and tylenol prn -repeat head CT if persists or worsens [id number] to po PPI, add on probiotics at pt's request, NO anticoagulation due to hemoptysis, SCDs Full code.
[2016-11-28] MEDS: TAMSULOSIN HCL 0.4 MG CAP PO SCH (20:43)
[2016-11-29] VITALS (7 sets, daily range): BP systolic 127–145; BP diastolic 57–98; PULSE 60–68; TEMP 36.8–37; O2SAT 94–99
[2016-11-29] MEDS: CLINDAMYCIN IV 600 MG in DEXTROSE 5% ADD-VANTAGE 50ML 50 ML IV SCH ×4 (00:02→23:38)
[2016-11-29 05:55] LABS: BASO % 0.3 %; BASO ABS # 0.02 K/uL (0-0.2); COMPLETE YES; EOS % 2.2 %; HEMATOCRIT 32.1 % (42-52); IG% 0.5 %; LYMPH % 18.9 %; LYMPH ABS # 1.14 K/uL (1.2-3.4); MEAN CELL VOLUME 90.7 fL (80-100); MEAN CORPUSCULAR HEMOGLOBIN 30.5 pg (25-34); MEAN CORPUSCULAR HGB CONC 33.6 g/dl (32-36); MEAN PLATELET VOLUME 9.6 fL (7.4-10.4); MONO % 16.7 %; NEUT % 61.4 %; PLATELET COUNT 176 K/uL (130-400); RED BLOOD COUNT 3.54 M/uL (4.7-6.1); WHITE BLOOD COUNT 6.04 K/uL (4.8-10.8)
[2016-11-29 06:29] LABS: BUN/CREATININE RATIO 14.4 (10-20); CALCIUM 7.9 mg/dl (8.5-10.1); CREATININE 0.94 mg/dl (0.60-1.40); MAGNESIUM 2.1 mg/dl (1.8-2.4); POTASSIUM 3.4 mmol/L (3.5-5.1)
[2016-11-29] MEDS ORDERED: POTASSIUM CHLORIDE 10 MEQ TABCR PO STA (07:32)
[2016-11-29] MEDS: LACTOBACILLUS ACIDOPHILUS (FLORANEX) TAB PO SCH ×3 (08:10→17:13)
[2016-11-29] MEDS: SUCRALFATE 1 GM/10 ML UDC PO SCH ×4 (08:27→20:00)
[2016-11-29] MEDS: PANTOprazole SOD 40 MG TAB PO SCH (08:27)
--- NOTE | 2016-11-29 08:54 | Cardiology Follow-Up ---
Subjective General Date of Service: Nov 29, 2016. Pt evaluation today including: conversation w/ patient, chart review, lab review, review of studies History of Present Illness The patient is a 86 year old male Allergies Coded Allergies: Penicillins (Verified Allergy, Unknown, HIVES, 11/25/16) Social History Smoking Status: Unknown if Ever Smoked Hx Tobacco Use In Past Year?: No Hx Alcohol Use - Type And Amou: Yes (1 beer month) Hx Substance Use - Type And Am: No Problem List Medical Problems: (1) A-fib Status: Acute (2) Aspiration into respiratory tract Status: Acute (3) Gastroenteritis Status: Acute (4) Syncope Status: Acute Review of Systems Respiratory: + cough, + sputum, No dyspnea at rest, No shortness of breath Cardiac: No chest pain, No edema, No palpitations Physical Exam Vital Signs Last Vital Signs Documentation Date Time Temp Pulse Resp B/P Pulse Ox O2 Delivery O2 Flow Rate FiO2 11/29/16 07:31 36.8 68 20 141/58 95 Room Air Physical Exam Constitutional: General Apperance: heathly-appearing Level of Distress: NAD Lungs: Respiratory effort: no dyspnea Auscultation: no wheezing, no rales/crackles, decreased breath sounds, rhonchi (right lung field) Cardiovascular: Heart Auscultation: no murmurs, no rubs, irregular rate rhythm Abdomen: Bowel Sounds: normal Inspection & Palpation: soft, non-distended, no tenderness, guarding & rebound Extremities: no edema Assessment and Plan Assessment and Plan IMPRESSION: 1. Asymptomatic atrial fibrillation. 2. Syncopal episode in the face of significant nauseousness and probable dehydration. 3. Ongoing episodes of hemoptysis. 4. Significant gait instability requiring a walker for ambulation. 5. Frequent PVC's Rates controlled on monitor, no pauses frequent PVC's If HR increases as he gets better we can add low dose BB for Afib rate and to suppress PVC's;HR with sleep in mow to mid 60's No plans for AC with hemoptysis, CT chest with infection in right lung Anxiety Laboratory Results Last 24 Hours Test 11/29/16 05:15 White Blood Count 6.04 K/uL Red Blood Count 3.54 M/uL Hemoglobin 10.8 g/dL Hematocrit 32.1 % Mean Corpuscular Volume 90.7 fL Mean Corpuscular Hemoglobin 30.5 pg Mean Corpuscular Hemoglobin Concent 33.6 g/dl Platelet Count 176 K/uL Mean Platelet Volume 9.6 fL Neutrophils (%) (Auto) 61.4 % Lymphocytes (%) (Auto) 18.9 % Monocytes (%) (Auto) 16.7 % Eosinophils (%) (Auto) 2.2 % Basophils (%) (Auto) 0.3 % Neutrophils # (Auto) 3.71 K/uL Lymphocytes # (Auto) 1.14 K/uL Monocytes # (Auto) 1.01 K/uL Eosinophils # (Auto) 0.13 K/uL Basophils # (Auto) 0.02 K/uL RDW Standard Deviation 44.2 fL RDW Coefficient of Variation 13.2 % Immature Granulocyte % (Auto) 0.5 % Immature Granulocyte # (Auto) 0.03 K/uL Sodium Level 140 mmol/L Potassium Level 3.4 mmol/L Chloride Level 105 mmol/L Carbon Dioxide Level 25 mmol/L Anion Gap 10.0 mmol/L Blood Urea Nitrogen 14 mg/dl Creatinine 0.94 mg/dl Est Creatinine Clear Calc Drug Dose 61.1 ml/min Estimated GFR () 85.3 Estimated GFR (Non- 73.6 BUN/Creatinine Ratio 14.4 Random Glucose 106 mg/dl Calcium Level 7.9 mg/dl Magnesium Level 2.1 mg/dl
[2016-11-29] MEDS: LEVOFLOXACIN / D5W 750 MG in PREMIXED IN D5W 150 ML IV SCH (09:10)
[2016-11-29] MEDS: ONDANSETRON INJ 2 MG/ML 2 ML VIAL IV PRN (11:55)
--- NOTE | 2016-11-29 16:49 | PULMONARY PROGRESS NOTE ---
DATE: 11/29/2016 SUBJECTIVE: The patient is still coughing up some bright red blood. It is less than yesterday, but it is still happening. His nurse was unaware of this. I think the patient is not telling him what is happening, but he did have tissues in his room. His daughter was present during this examination. The patient had a bad night from the perspective of awakening with what seemed like a nightmare. This happened fairly soon after he went to bed. He awakens with a panic attack feeling. He was able to recall the dream. He felt like his heart was pounding and he was sweaty. The patient called for the nurse. He did not think that she believed him. He thought "she blew me off ". He remains anxious about the same problem happening again tonight. I could not find evidence that he had received any medicines that might typically cause such a response. His breathing is fairly good. His appetite is still marginal. OBJECTIVE: VITAL SIGNS: The patient has been afebrile. The highest temperature in the past 24 hours is 37 degrees. Rate is 68 per minute. Blood pressure is 141/58. Respiratory rate is 20 per minute. Oxygen saturation is 95% on room air. ENT: Exam is unremarkable. I found no blood in his nostrils and no blood in the posterior pharynx. NECK: Palpation of the neck reveals no lymph nodes. HEART: The rhythm is irregularly irregular. LUNGS: There were just a few rales heard in the right chest posteriorly. ABDOMEN: Soft. Bowel sounds were present and were normal. EXTREMITIES: Showed no cyanosis, clubbing or edema. IMAGING DATA: CAT scan of the chest was done. This revealed evidence of a fairly extensive infiltrate in the right lung, mainly in the right upper lobe and right lower lobe with relative sparing of the middle lobe. I suspect this reflects pneumonia related to aspiration. Emphysematous changes were reported. LABORATORY DATA: CBC today showed a white count of 6.04. Hemoglobin is 10.8, which is not significantly changed in the past 3 days. Platelets are 176,000. Electrolytes show sodium 140, potassium 3.4, chloride 105, bicarb 25. BUN is 14 with a creatinine of 0.94. Blood sugar is 106. Sputum Gram stain and culture reported light growth of normal garcia. I believe this was obtained; however, prior to the hemoptysis. Gram stain sent from yesterday did show many polys. Blood cultures have shown no growth. IMPRESSIONS: 1. Hemoptysis. 2. Aspiration pneumonia involving the right lung. 3. Syncope. 4. Atrial fibrillation. COMMENTS AND RECOMMENDATIONS: I am going to ask the nurse to put a sputum cup at his bedside. I want to collect all the sputum for the next day, so I can evaluate how much hemoptysis he is having. The patient is on levofloxacin and clindamycin. There have been rare reports of levofloxacin causing some mental status changes. Alternatively, the patient could have some degree of ICU psychosis. We would continue with current treatment for now. MTDD
--- NOTE | 2016-11-29 19:32 | Hospitalist Progress Note ---
Hospitalist Progress Note Date of Service Nov 29, 2016. Subjective Pt evaluation today including: conversation w/ patient, physical exam, chart review, lab review, review of studies, review of inpatient medication list Voiding: ro catheter in place Feeling better today, still with hemoptysis but less today. Afebrile. Was OOB with PT today. No lightheadedness. Headache is improved today Constitutional: No fever Respiratory: + cough, + hemoptysis, No shortness of breath Cardiovascular: No chest pain All Other Systems: Reviewed and Negative Objective Vital Signs Date Time Temp Pulse Resp B/P Pulse Ox O2 Delivery O2 Flow Rate FiO2 11/29/16 16:08 36.8 68 20 145/98 96 Room Air 11/29/16 16:00 Room Air 11/29/16 12:00 Room Air 11/29/16 07:31 36.8 68 20 141/58 95 Room Air 11/29/16 04:30 37.0 65 22 135/68 94 Room Air 11/29/16 04:30 94 Room Air 11/29/16 00:05 94 Room Air 11/29/16 00:00 36.9 66 22 135/85 95 Room Air 11/28/16 20:10 97 Room Air 11/28/16 20:05 36.9 73 18 127/76 97 Physical Exam General Appearance: WD/WN, no apparent distress Eyes: normal inspection, sclerae normal Respiratory/Chest: no respiratory distress, no accessory muscle use, + crackles (at right middle and lower lung de la torre) Cardiovascular: no edema, no gallop, no murmur, + irregularly irregular Abdomen: normal bowel sounds, non tender, soft Extremities: no pedal edema, no calf tenderness Neurologic/Psychiatric: alert, normal mood/affect, oriented x 3 Skin: normal color, warm/dry, no rash Laboratory Results Last 24 Hours Test 11/29/16 05:15 White Blood Count 6.04 K/uL Red Blood Count 3.54 M/uL Hemoglobin 10.8 g/dL Hematocrit 32.1 % Mean Corpuscular Volume 90.7 fL Mean Corpuscular Hemoglobin 30.5 pg Mean Corpuscular Hemoglobin Concent 33.6 g/dl Platelet Count 176 K/uL Mean Platelet Volume 9.6 fL Neutrophils (%) (Auto) 61.4 % Lymphocytes (%) (Auto) 18.9 % Monocytes (%) (Auto) 16.7 % Eosinophils (%) (Auto) 2.2 % Basophils (%) (Auto) 0.3 % Neutrophils # (Auto) 3.71 K/uL Lymphocytes # (Auto) 1.14 K/uL Monocytes # (Auto) 1.01 K/uL Eosinophils # (Auto) 0.13 K/uL Basophils # (Auto) 0.02 K/uL RDW Standard Deviation 44.2 fL RDW Coefficient of Variation 13.2 % Immature Granulocyte % (Auto) 0.5 % Immature Granulocyte # (Auto) 0.03 K/uL Sodium Level 140 mmol/L Potassium Level 3.4 mmol/L Chloride Level 105 mmol/L Carbon Dioxide Level 25 mmol/L Anion Gap 10.0 mmol/L Blood Urea Nitrogen 14 mg/dl Creatinine 0.94 mg/dl Est Creatinine Clear Calc Drug Dose 61.1 ml/min Estimated GFR () 85.3 Estimated GFR (Non- 73.6 BUN/Creatinine Ratio 14.4 Random Glucose 106 mg/dl Calcium Level 7.9 mg/dl Magnesium Level 2.1 mg/dl Assessment and Plan 86 with nausea/vomiting from gastroenteritis, likely vasovagal syncope and probable aspiration pneumonia as a result of previous vomiting, with fevers and development of hemoptysis. Also with slow A-fib. Syncope, PAF rate controlled-likely vasovagal as was associated with nausea/ vomiting from GI illness at home. Did have slow A-fib sometimes into the 30s-40s while sleeping but otherwise asymptomatic. Improved, no significant events on tele, rates improved, no further syncope ECHO: * The left ventricle is normal in size. * Left ventricular systolic function is normal. * Ejection Fraction = 60-65%. * The left ventricular wall motion is normal. * The right ventricle is mildly dilated. * The right ventricular systolic function is normal. * There is mild tricuspid regurgitation. * Right ventricular systolic pressure is elevated at 30-40mmHg. -Cardiology consult appreciated -continue tele monitoring -if has symptomatic bradycardia outside of vasovagal episode, may need PPM -not on AC for fall risk with peripheral neuropathy and syncope -no AV catrachito blockers recommended due to bradycardia and could have underlying conduction problems unless HR goes higher as per Cardio notes Aspiration pneumonia, hemoptysis-persists today but improving. SPutum culture normal garcia CT Chest shows: 1. Cardiomegaly and emphysema. 2. Patchy airspace consolidation is seen throughout the right lung. The appearance is typical for pneumonia. Radiographic follow-up to resolution is recommended. 3. Small pleural effusions. 4. Hiatal hernia. 5. Pneumobilia is noted. There are changes of previous cholecystectomy and this is likely related to history of sternotomy. Correlation with the patient's surgical history will be required. -continue IV clindamycin and added levaquin for gram negative pneumonia coverage -Hemoptysis is likely from gastric contents irritating lungs -appreciate consult Pulm for further recommendations in case needs bronchoscopy H/o prostate CA, BPH -on FLomax -requesting Ro to stay in as he has chronic incontinence and frequency and has peripheral neuropathy making it difficult to go to bathroom quickly -encouraged him that we should remove Ro tomorrow Headache: Improving, Neuro exam normal, was in part likely caffeine withdrawal as was on AHA diet, had neg head CT on admission, could be side effect from antibiotic. -allowed caffeinated coffee -benadryl and tylenol prn -repeat head CT if persists or worsens [id number] to po PPI, add on probiotics at pt's request, NO anticoagulation due to hemoptysis, SCDs Full code.
[2016-11-29] MEDS: TAMSULOSIN HCL 0.4 MG CAP PO SCH (20:00)
[2016-11-30] VITALS (18 sets, daily range): BP systolic 125–159; BP diastolic 59–92; PULSE 53–85; TEMP 36.5–36.8; O2SAT 93–98
[2016-11-30 06:08] LABS: BASO % 0.4 %; BASO ABS # 0.03 K/uL (0-0.2); COMPLETE YES; EOS % 2.4 %; IG% 1.3 %; LYMPH % 16.9 %; LYMPH ABS # 1.21 K/uL (1.2-3.4); MEAN CELL VOLUME 89.4 fL (80-100); MEAN CORPUSCULAR HEMOGLOBIN 30.7 pg (25-34); MEAN CORPUSCULAR HGB CONC 34.4 g/dl (32-36); MEAN PLATELET VOLUME 9.5 fL (7.4-10.4); MONO % 14.8 %; NEUT % 64.2 %; PLATELET COUNT 193 K/uL (130-400); RED BLOOD COUNT 3.58 M/uL (4.7-6.1); WHITE BLOOD COUNT 7.15 K/uL (4.8-10.8)
[2016-11-30 06:35] LABS: BUN/CREATININE RATIO 12.4 (10-20); CALCIUM 8.3 mg/dl (8.5-10.1); CREATININE 1.1 mg/dl (0.60-1.40); MAGNESIUM 2.1 mg/dl (1.8-2.4); POTASSIUM 3.9 mmol/L (3.5-5.1)
--- NOTE | 2016-11-30 08:05 | Cardiology Follow-Up ---
Subjective General Date of Service: Nov 30, 2016. Pt evaluation today including: conversation w/ patient, chart review, lab review, review of studies History of Present Illness The patient is a 86 year old male Allergies Coded Allergies: Penicillins (Verified Allergy, Unknown, HIVES, 11/25/16) Social History Smoking Status: Unknown if Ever Smoked Hx Tobacco Use In Past Year?: No Hx Alcohol Use - Type And Amou: Yes (1 beer month) Hx Substance Use - Type And Am: No Problem List Medical Problems: (1) A-fib Status: Acute (2) Aspiration into respiratory tract Status: Acute (3) Gastroenteritis Status: Acute (4) Syncope Status: Acute Review of Systems Respiratory: + cough, + hemoptysis, + sputum, No dyspnea at rest, No shortness of breath, No wheezing Cardiac: No claudication, No edema, No orthopnea, No palpitations Physical Exam Vital Signs Last Vital Signs Documentation Date Time Temp Pulse Resp B/P Pulse Ox O2 Delivery O2 Flow Rate FiO2 11/30/16 04:05 36.6 53 24 129/62 94 Room Air Physical Exam Constitutional: General Apperance: heathly-appearing Level of Distress: NAD Lungs: Respiratory effort: no dyspnea Auscultation: breath sounds normal, no wheezing, no rales/crackles, pertinent finding (right lung sound s much better) Cardiovascular: Heart Auscultation: no murmurs, no rubs, irregular rate rhythm Abdomen: Bowel Sounds: normal Inspection & Palpation: soft, non-distended, no tenderness, guarding & rebound Extremities: no edema Assessment and Plan Assessment and Plan IMPRESSION: 1. Asymptomatic atrial fibrillation. 2. Syncopal episode in the face of significant nauseousness and probable dehydration. 3. Ongoing episodes of hemoptysis. 4. Significant gait instability requiring a walker for ambulation. 5. Frequent PVC's Rates controlled on monitor, no pauses, never >100 BPM frequent PVC's--asymptomatic No plans for AC with hemoptysis and gait instability CT chest with infection in right lung More belligerent this am Laboratory Results Last 24 Hours Test 11/30/16 05:28 White Blood Count 7.15 K/uL Red Blood Count 3.58 M/uL Hemoglobin 11.0 g/dL Hematocrit 32.0 % Mean Corpuscular Volume 89.4 fL Mean Corpuscular Hemoglobin 30.7 pg Mean Corpuscular Hemoglobin Concent 34.4 g/dl Platelet Count 193 K/uL Mean Platelet Volume 9.5 fL Neutrophils (%) (Auto) 64.2 % Lymphocytes (%) (Auto) 16.9 % Monocytes (%) (Auto) 14.8 % Eosinophils (%) (Auto) 2.4 % Basophils (%) (Auto) 0.4 % Neutrophils # (Auto) 4.59 K/uL Lymphocytes # (Auto) 1.21 K/uL Monocytes # (Auto) 1.06 K/uL Eosinophils # (Auto) 0.17 K/uL Basophils # (Auto) 0.03 K/uL RDW Standard Deviation 43.5 fL RDW Coefficient of Variation 13.3 % Immature Granulocyte % (Auto) 1.3 % Immature Granulocyte # (Auto) 0.09 K/uL Sodium Level 142 mmol/L Potassium Level 3.9 mmol/L Chloride Level 106 mmol/L Carbon Dioxide Level 28 mmol/L Anion Gap 8.0 mmol/L Blood Urea Nitrogen 14 mg/dl Creatinine 1.10 mg/dl Est Creatinine Clear Calc Drug Dose 49.9 ml/min Estimated GFR () 70.6 Estimated GFR (Non- 60.9 BUN/Creatinine Ratio 12.4 Random Glucose 101 mg/dl Calcium Level 8.3 mg/dl Magnesium Level 2.1 mg/dl
[2016-11-30] MEDS: SUCRALFATE 1 GM/10 ML UDC PO SCH ×4 (08:28→20:27)
[2016-11-30] MEDS: CLINDAMYCIN IV 600 MG in DEXTROSE 5% ADD-VANTAGE 50ML 50 ML IV SCH (08:28)
[2016-11-30] MEDS: LACTOBACILLUS ACIDOPHILUS (FLORANEX) TAB PO SCH ×3 (08:30→15:39)
[2016-11-30] MEDS: PANTOprazole SOD 40 MG TAB PO SCH (08:30)
[2016-11-30] MEDS: LEVOFLOXACIN / D5W 750 MG in PREMIXED IN D5W 150 ML IV SCH (09:53)
--- NOTE | 2016-11-30 11:31 | PULMONARY PROGRESS NOTE ---
DATE: 11/30/2016 DATE: 11/30/2016. TIME: 11:10 a.m. SUBJECTIVE: The patient states he feels better today. He did sleep much better than he had the night prior. He is still complaining of headache. It seemed to go away taking Benadryl. His cough is somewhat less. He did expectorate in a cup a few mL of clotted blood since yesterday. Nothing looked real fresh. He states that his appetite is improved, but he does not care for our food. He is getting out of bed to the chair. OBJECTIVE: GENERAL: The patient appeared comfortable at rest. VITAL SIGNS: Temperature 36.8. EARS, NOSE, AND THROAT EXAMINATION: Unremarkable. NECK: Palpation of the neck reveals no lymph nodes. HEART: Heart rate was 80 per minute. Blood pressure 140/85. The cardiac rhythm was irregular. LUNGS: Lung de la torre revealed mild rales in the right chest. These seemingly had diminished. Left lung was fairly clear. Saturation 97%. He sounds much better than his CAT scan of the chest from 2 days ago would suggest. LABORATORY DATA: White count today is 7.15. Hemoglobin is 11. Platelets 193,000. Electrolytes show sodium 142, potassium 3.9, chloride 106, bicarbonate 28. BUN is 14 with a creatinine of 1.1. IMPRESSIONS: 1. Hemoptysis. 2. Aspiration pneumonia involving the right lung. 3. Syncope. 4. Atrial fibrillation. COMMENTS AND RECOMMENDATIONS: The patient seems clinically improved. We are going to give him another cup to expectorate into so I can see from day to day if the hemoptysis is resolving. Clinically, he feels the best that he has. I would continue the antibiotics as present. The patient states that he is able to do incentive spirometry all the way to the top without difficulty. He does not sound like he needs nebulizer treatments at present. We will obtain a chest x-ray tomorrow.
[2016-11-30] MEDS: CLINDAMYCIN HCL 150 MG CAP PO SCH ×2 (15:40→20:27)
--- NOTE | 2016-11-30 16:25 | Hospitalist Progress Note ---
Hospitalist Progress Note Date of Service Nov 30, 2016. Subjective Pt evaluation today including: conversation w/ patient, conversation w/ family , physical exam, chart review, lab review, review of studies, review of inpatient medication list Voiding: ro catheter in place Pt still having headache coming and going, sometimes severe today. Mostly left side of head now. A cup of coffee this AM did not make a difference in the pain ; Benadryl did take it away for a short time and then it returned. No N/V. No CP or SOB. Coughed up only a scant amount of pink-tinged sputum tall day which is much improved. Still declines having Ro removed as he gets urinary incontinence and urgency and does not want to wear a brief and have incontinence if he can't make it to the toilet. A-fib with normal rates on tele and no pauses or significant bradycardia since . Constitutional: No fever ENT: + problem reported (heqadache as per HPI) Respiratory: + cough, + sputum Cardiovascular: No chest pain Abdomen: No nausea, No pain Skin: No rash Objective Vital Signs Date Time Temp Pulse Resp B/P Pulse Ox O2 Delivery O2 Flow Rate FiO2 11/30/16 15:18 36.8 78 20 125/59 94 Room Air 11/30/16 12:00 Room Air 11/30/16 11:32 36.8 85 18 128/71 96 11/30/16 08:18 36.8 80 18 140/85 97 11/30/16 08:00 Room Air 11/30/16 04:05 36.6 53 24 129/62 94 Room Air 11/30/16 04:05 94 Room Air 11/30/16 00:02 36.5 68 18 133/60 95 Room Air 11/30/16 00:00 95 Room Air 11/29/16 20:00 95 Room Air 11/29/16 19:57 37.0 60 18 127/57 99 Physical Exam General Appearance: WD/WN, no apparent distress Eyes: normal inspection, EOMI, sclerae normal Neck: trachea midline Respiratory/Chest: no respiratory distress, no accessory muscle use, + crackles (at right base and righ tmiddle lung field, otherwise clear) Cardiovascular: no edema, no gallop, no murmur, + irregularly irregular (with normal rate) Abdomen: normal bowel sounds, non tender, soft Extremities: non-tender, normal inspection, no pedal edema, no calf tenderness Neurologic/Psychiatric: alert, normal mood/affect, oriented x 3 Skin: normal color, warm/dry, no rash Laboratory Results Last 24 Hours Test 11/30/16 05:28 White Blood Count 7.15 K/uL Red Blood Count 3.58 M/uL Hemoglobin 11.0 g/dL Hematocrit 32.0 % Mean Corpuscular Volume 89.4 fL Mean Corpuscular Hemoglobin 30.7 pg Mean Corpuscular Hemoglobin Concent 34.4 g/dl Platelet Count 193 K/uL Mean Platelet Volume 9.5 fL Neutrophils (%) (Auto) 64.2 % Lymphocytes (%) (Auto) 16.9 % Monocytes (%) (Auto) 14.8 % Eosinophils (%) (Auto) 2.4 % Basophils (%) (Auto) 0.4 % Neutrophils # (Auto) 4.59 K/uL Lymphocytes # (Auto) 1.21 K/uL Monocytes # (Auto) 1.06 K/uL Eosinophils # (Auto) 0.17 K/uL Basophils # (Auto) 0.03 K/uL RDW Standard Deviation 43.5 fL RDW Coefficient of Variation 13.3 % Immature Granulocyte % (Auto) 1.3 % Immature Granulocyte # (Auto) 0.09 K/uL Sodium Level 142 mmol/L Potassium Level 3.9 mmol/L Chloride Level 106 mmol/L Carbon Dioxide Level 28 mmol/L Anion Gap 8.0 mmol/L Blood Urea Nitrogen 14 mg/dl Creatinine 1.10 mg/dl Est Creatinine Clear Calc Drug Dose 49.9 ml/min Estimated GFR () 70.6 Estimated GFR (Non- 60.9 BUN/Creatinine Ratio 12.4 Random Glucose 101 mg/dl Calcium Level 8.3 mg/dl Magnesium Level 2.1 mg/dl Assessment and Plan 86 with nausea/vomiting from gastroenteritis, likely vasovagal syncope and probable aspiration pneumonia as a result of previous vomiting, with fevers and development of hemoptysis. Also with slow A-fib on admission. Syncope, PAF rate controlled-likely vasovagal as was associated with nausea/ vomiting from GI illness at home. Did have slow A-fib sometimes into the 30s-40s while sleeping on admission but otherwise asymptomatic. Improved, no significant events on tele in 4 days, rates improved, no further syncope ECHO: * The left ventricle is normal in size. * Left ventricular systolic function is normal. * Ejection Fraction = 60-65%. * The left ventricular wall motion is normal. * The right ventricle is mildly dilated. * The right ventricular systolic function is normal. * There is mild tricuspid regurgitation. * Right ventricular systolic pressure is elevated at 30-40mmHg. -Cardiology consult appreciated -ok to transfer to medical floor -no indication for PPM -not on AC for fall risk with peripheral neuropathy and syncope -no AV catrachito blockers recommended due to bradycardia and could have underlying conduction problems unless HR goes higher as per Cardio notes Aspiration pneumonia, hemoptysis-continues to improve. Sputum culture normal garcia CT Chest shows: 1. Cardiomegaly and emphysema. 2. Patchy airspace consolidation is seen throughout the right lung. The appearance is typical for pneumonia. Radiographic follow-up to resolution is recommended. 3. Small pleural effusions. 4. Hiatal hernia. 5. Pneumobilia is noted. There are changes of previous cholecystectomy and this is likely related to history of sternotomy. Correlation with the patient's surgical history will be required. -switch to po clindamycin for aspiration PNA and po levaquin for gram negative pneumonia coverage but could probably d/c Levaquin tomorrow -Hemoptysis is likely from gastric contents irritating lungs -appreciate consult Pulm for further recommendations -repeat CXR in the AM -continue to monitor amount of hemoptysis by collecting in sputum cup H/o prostate CA, BPH -on Flomax -requesting Ro to stay in as he has chronic incontinence and frequency and has peripheral neuropathy making it difficult to go to bathroom quickly, doesn' t want to have incontinence -encouraged him that we should remove Ro soon Headache: Persists today, Neuro exam normal, was thought to be in part due to caffeine withdrawal as was on AHA diet, had neg head CT on admission, could be side effect from antibiotic. Persists despite caffeine now, benadryl helps temporarily -check head CT now given h/o fall and possible head trauma -benadryl and tylenol prn -if head CT negative, consider stopping Levaquin to see if helps [id number] to po PPI, add on probiotics at pt's request, NO anticoagulation due to hemoptysis, SCDs Full code.
--- NOTE | 2016-11-30 16:46 | DIAGNOSTIC IMAGING REPORT ---
CT OF THE HEAD WITHOUT CONTRAST CLINICAL HISTORY: Headache status post fall. COMPARISON STUDY: Head CT November 25, 2016. CT DOSE: 537.48 mGy.cm TECHNIQUE: Helical axial images of the head were obtained without IV contrast. Automated exposure control was utilized for the study. FINDINGS: There has been interval development of small bilateral subdural intermediate attenuation collections since exam of November 25, 2016. The left subdural hematoma measures 2 mm in thickness. The right subdural hematoma measures approximately 4 mm. Prominence of the extra-axial CSF spaces, right greater left, is noted. 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 Ventricular system is stable. The basilar cisterns are patent. 4 mm of leftward midline shift has developed. There is no calvarial fracture. IMPRESSION: 1. Interval development of small mixed attenuation subdural collections, right larger than left. 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 Mild mass effect with 4 mm of leftward midline shift. 2. No calvarial fracture. Electronically signed by: Raymond Leon M.D. 11/30/2016 4:45 PM Dictated Date/Time: 11/30/2016 4:39 PM
[2016-11-30] MEDS: TAMSULOSIN HCL 0.4 MG CAP PO SCH (20:27)
[2016-11-30] MEDS ORDERED: DEXAMETHASONE INJ 2 MG in SYRINGE 0 ML IV ONE (21:00)
--- NOTE | 2016-11-30 21:24 | Progress Note ---
Progress Note Head CT showed bilateral acute on chronic SDHs that were small with 4 mm left midline shift. This is likely as a result of his syncope and falls the day of admission. Pt remains stable and no focal neuro symptoms other than his usual peripheral neuropathy and the headache. I spoke with Neuro extrusion former who recommended calling [facility]. NS Dr. Kaye at [facility] thought pt should be observed here as SDHs were small and midline shift was small and due to age- related atrophy, most likely has room to allow shift. He recommended starting Decadron for headache and can help resorb blood, also to observe and will need repeat CT head in 4-6 weeks, can f/u with him in the office in [place] at that time. I discussed the case with the pt, his daughter, and son-in-law (a physician) on the phone and all are in agreement to stay here at [facility] for observation. I did offer the pt to transfer to [facility] if he preferred to be observed there, but he is ok with staying here. NS from [facility] said risk of requiring urgent NS intervention is quite low. He is not on any anticoagulants and his ASA was actually stopped 3 days ago anyway for his hemoptysis. Discussed case with CCM MD Dr. Kaiser and will transfer to ICU for overnight observation, closer monitoring with q1 hour Neuro checks. Will repeat head CT tomorrow to assess for interval change.
--- NOTE | 2016-11-30 22:48 | Critical Care Consultation ---
Critical Care Consultation Date of Consultation: Nov 30, 2016. Attending Physician: Pamela Alberts MD Reason for Consultation: ICU monitoring for acute subdural hematoma History of Present Illness Attending: Dr. Kaiser This is a 86-year-old male who was admitted several days ago for syncope. He has a history of atrial fibrillation with bradycardia. He was at home on Sunday when he had two episodes of extreme nausea resulting in syncope and fall. The patient denies hitting his head but started to complain of a headache. A CT scan was performed and patient was found to have interval development of small mixed attenuation subdural collections right larger than left. Mild mass effect with 4 mm of leftward midline shift was also identified. There was no bony abnormality or calvarial fracture noted. Neurosurgery was contacted [place] and due to small bilateral findings it was felt that the patient can be monitored here. Patient was transferred to the intensive care unit for frequent neurological checks. Patient seen in room 102 and is alert and oriented 3. He has no deficiencies with Mini-Mental status exam. He has no neurological deficiencies or asymmetrical findings. He has no evidence of cranial injury. He currently states that he continues with a headache that has a fluctuating sensation. He describes it as being frontal and more on the right side than the left. He has no acute vision changes. He has no acute speech pattern changes. He denies any new tremor or loss of dexterity. He has no other acute complaints. He was started on dexamethasone. The patient's son-in-law's Dr. Devendra Knox who is on medical staff here. Family has been made aware of the findings and agrees with monitoring at [facility] for now. Past Medical/Surgical History Medical Problems: Atrial fibrillation Gastroenteritis BPH Hyperlipidemia Prostate cancer status post radiation therapy Peripheral neuropathy Ambulatory dysfunction requiring use of a walker Remote tobacco abuse history - patient states he quit smoking in 1966 Past surgical history: Patient denies any past surgical procedures Family History No pertinent family history Noncontributory Social History Smoking Status: Former Smoker (quit smoking in 1966) Smokeless Tobacco Use: No Drug Use: none Marital Status: Housing Status: lives with family Occupation Status: retired Allergies Coded Allergies: Penicillins (Verified Allergy, Unknown, HIVES, 11/25/16) Home Medications Scheduled Tamsulosin Hcl (Flomax), 0.4 MG PO HS Current Inpatient Medications Current Inpatient Medications Medications (Trade) Dose Ordered Sig/Duke Route Start Time Stop Time Status Last Admin Dose Admin Tamsulosin HCl (Flomax Cap) 0.4 mg HS PO 11/25/16 21:00 12/25/16 20:59 11/30/16 20:27 0.4 MG Acetaminophen (Tylenol Tab) 650 mg Q4H PRN PO 11/25/16 14:45 12/25/16 14:44 11/28/16 14:01 650 MG Al Hydrox/Mg Hydrox/Simethicone (Maalox Max Susp) 15 ml Q4H PRN PO 11/25/16 14:45 12/25/16 14:44 Magnesium Hydroxide (Milk Of Magnesia Susp) 30 ml Q12H PRN PO 11/25/16 14:45 12/25/16 14:44 Ondansetron HCl (Zofran Inj) 4 mg Q6H PRN IV 11/25/16 14:45 12/25/16 14:44 11/29/16 11:55 4 MG Polyethylene (Miralax Powder Packet) 17 gm DAILY PRN PO 11/25/16 14:45 12/25/16 14:44 Sucralfate (Carafate Susp) 1 gm QID PO 11/26/16 13:00 12/26/16 12:59 11/30/16 20:27 1 GM Lactobacillus Acidophilus (Floranex Tab) 4 tab TIDM PO 11/28/16 07:30 12/28/16 07:29 11/30/16 15:39 4 TAB Pantoprazole Sodium (Protonix Tab) 40 mg QAM PO 11/28/16 09:00 12/28/16 08:59 11/30/16 08:30 40 MG Diphenhydramine HCl (Benadryl Cap) 25 mg Q6H PRN PO 11/28/16 16:00 12/28/16 15:59 11/30/16 07:22 25 MG Levofloxacin (Levaquin Tab) 750 mg DAILY@11 PO 12/01/16 11:00 12/03/16 08:59 Clindamycin HCl 450 mg 450 mg QID PO 11/30/16 17:00 12/02/16 16:29 11/30/16 20:27 450 MG Dexamethasone Sodium Phosphate/ Syringe (Decadron Inj/ Syringe) 0.5 ml @ 1 mls/min Q8@0400,1200,2000 IV 12/01/16 04:00 12/31/16 03:59 Review of Systems A total of 12 systems was reviewed and is negative other than as listed above in the HPI Physical Exam Date Time Temp Pulse Resp B/P Pulse Ox O2 Delivery O2 Flow Rate FiO2 11/30/16 21:00 36.7 74 20 96 11/30/16 19:40 36.7 74 20 157/63 96 Room Air 11/30/16 18:18 36.8 78 20 94 11/30/16 16:01 Room Air 11/30/16 15:18 36.8 78 20 125/59 94 Room Air 11/30/16 12:00 Room Air 11/30/16 11:32 36.8 85 18 128/71 96 11/30/16 08:18 36.8 80 18 140/85 97 11/30/16 08:00 Room Air 11/30/16 04:05 36.6 53 24 129/62 94 Room Air 11/30/16 04:05 94 Room Air 11/30/16 00:02 36.5 68 18 133/60 95 Room Air 11/30/16 00:00 95 Room Air GENERAL : No acute distress. Pleasant. Quite talkative EYES: No icterus, gaze conjugate. PERRLA NOSE: No evidence of epistaxis. No septal breech MOUTH: No lesions or candidiasis. Mucosa moist NECK: Supple. No carotid bruits or stridor appreciated LUNGS: CTA B/L, no wheezes, rales or rhonchi HEART: Irregular, rate controlled in the 70s ABDOMEN: Soft, NT, ND, BS Present. EXTREMITIES: No LE edema, pedal pulses intact. NEURO: A&OX3. No deficiencies with Mini-Mental exam. Reflexes II/IV patellar tendons, brachial radialis, biceps tendons. Strength equal and appropriate upper and lower extremities bilaterally. Pupils equal and reactive to light. Extraocular movement intact. Tongue midline. No slurred speech. Cerebellar function intact with rapid alternating movements and finger to nose. Toes downgoing bilaterally. Gait and Romberg deferred. No acute findings. Laboratory Results Last 24 Hours Test 11/30/16 05:28 White Blood Count 7.15 K/uL Red Blood Count 3.58 M/uL Hemoglobin 11.0 g/dL Hematocrit 32.0 % Mean Corpuscular Volume 89.4 fL Mean Corpuscular Hemoglobin 30.7 pg Mean Corpuscular Hemoglobin Concent 34.4 g/dl Platelet Count 193 K/uL Mean Platelet Volume 9.5 fL Neutrophils (%) (Auto) 64.2 % Lymphocytes (%) (Auto) 16.9 % Monocytes (%) (Auto) 14.8 % Eosinophils (%) (Auto) 2.4 % Basophils (%) (Auto) 0.4 % Neutrophils # (Auto) 4.59 K/uL Lymphocytes # (Auto) 1.21 K/uL Monocytes # (Auto) 1.06 K/uL Eosinophils # (Auto) 0.17 K/uL Basophils # (Auto) 0.03 K/uL RDW Standard Deviation 43.5 fL RDW Coefficient of Variation 13.3 % Immature Granulocyte % (Auto) 1.3 % Immature Granulocyte # (Auto) 0.09 K/uL Sodium Level 142 mmol/L Potassium Level 3.9 mmol/L Chloride Level 106 mmol/L Carbon Dioxide Level 28 mmol/L Anion Gap 8.0 mmol/L Blood Urea Nitrogen 14 mg/dl Creatinine 1.10 mg/dl Est Creatinine Clear Calc Drug Dose 49.9 ml/min Estimated GFR () 70.6 Estimated GFR (Non- 60.9 BUN/Creatinine Ratio 12.4 Random Glucose 101 mg/dl Calcium Level 8.3 mg/dl Magnesium Level 2.1 mg/dl Diagnostic Results CT OF THE HEAD WITHOUT CONTRAST CLINICAL HISTORY: Headache status post fall. COMPARISON STUDY: Head CT November 25, 2016. CT DOSE: 537.48 mGy.cm TECHNIQUE: Helical axial images of the head were obtained without IV contrast. Automated exposure control was utilized for the study. FINDINGS: There has been interval development of small bilateral subdural intermediate attenuation collections since exam of November 25, 2016. The left subdural hematoma measures 2 mm in thickness. The right subdural hematoma measures approximately 4 mm. Prominence of the extra-axial CSF spaces, right greater left, is noted. 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 Ventricular system is stable. The basilar cisterns are patent. 4 mm of leftward midline shift has developed. There is no calvarial fracture. IMPRESSION: 1. Interval development of small mixed attenuation subdural collections, right larger than left. 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 Mild mass effect with 4 mm of leftward midline shift. 2. No calvarial fracture. Electronically signed by: Raymond Leon M.D. 11/30/2016 4:45 PM Assessment & Plan SUBDURAL HEMATOMA Status post fall this past Sunday Small mixed attenuation right larger than left. Findings suggest acute on chronic subdural hematomas Mild mass effect with 4 mm of left were midline shift Neurosurgery consulted at [place] - invasive intervention at this time Started on dexamethasone Monitor in ICU for neuro changes Repeat CT head tomorrow at noon time Continue frequent neuro checks ASPIRATION PNEUMONIA Levofloxacin 750 mg daily Clindamycin 450 mg by mouth 4 times a day Oxygenation adequate on room air Supplemental O2 started for subdural hematoma No history of significant lung disease in the past Aspiration secondary to acute illness and syncope at home BPH Continue tamsulosin ELECTROLYTES Sodium 142 Potassium 3.9 Magnesium 2.1 Calcium 8.3 Follow serial labs RENAL BUN 14 Creatinine 1.1 Follow serial labs ID Aspiration pneumonia Currently receiving clindamycin and levofloxacin Oxygenation adequate on room air Blood cultures negative for growth 2 Urine culture negative Sputum with night normal garcia No fever No leukocytosis ENDOCRINE No history of diabetes mellitus No history of hypothyroidism GI Continue pantoprazole IV ACCESS Peripheral access in place No indication for central line at this time DVT PROPHYLAXIS No chemical prophylaxis secondary to subdural hematoma Continue teds and SCDs CCT: 0 minutes. Level III inpatient consult Thank you for including us in the care of this patient. Please refer to Dr. Kaiser's addendum for further recommendations I have personally evaluated and examined this patient. I agree with assessment and plan of Janny Lorenzo PA-C. 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 Discussed with Dr. Alberts regarding inpatient plan and discharged follow-up. Level for inpatient consult due to medical complexity and medical risk.
[2016-12-01] VITALS (14 sets, daily range): BP systolic 114–151; BP diastolic 65–90; PULSE 58–82; TEMP 36.3–36.8; O2SAT 94–98
[2016-12-01] MEDS: DEXAMETHASONE INJ 2 MG in SYRINGE 0 ML IV SCH ×2 (03:36→11:42)
[2016-12-01 06:00] LABS: HEMATOCRIT 34.4 % (42-52); MEAN CELL VOLUME 88.7 fL (80-100); MEAN CORPUSCULAR HEMOGLOBIN 31.4 pg (25-34); MEAN CORPUSCULAR HGB CONC 35.5 g/dl (32-36); MEAN PLATELET VOLUME 9.2 fL (7.4-10.4); PLATELET COUNT 238 K/uL (130-400); RED BLOOD COUNT 3.88 M/uL (4.7-6.1); WHITE BLOOD COUNT 9.64 K/uL (4.8-10.8)
[2016-12-01 06:33] LABS: BUN/CREATININE RATIO 18.6 (10-20); CALCIUM 8.9 mg/dl (8.5-10.1); CREATININE 1.1 mg/dl (0.60-1.40); MAGNESIUM 2.3 mg/dl (1.8-2.4); POTASSIUM 4.4 mmol/L (3.5-5.1)
[2016-12-01] MEDS: LACTOBACILLUS ACIDOPHILUS (FLORANEX) TAB PO SCH ×3 (08:24→16:40)
[2016-12-01] MEDS: CLINDAMYCIN HCL 150 MG CAP PO SCH ×3 (09:10→17:09)
[2016-12-01] MEDS: PANTOprazole SOD 40 MG TAB PO SCH (09:10)
[2016-12-01] MEDS: SUCRALFATE 1 GM/10 ML UDC PO SCH ×3 (09:11→17:08)
--- NOTE | 2016-12-01 10:12 | Critical Care Progress Note ---
Critical Care Progress Note Date of Service Dec 01, 2016. Attending Dr. Kaiser Subjective No concerns. Feels better Answers questions appropriately. Objective GENERAL : No acute distress. awake, alert, oriented x 3 EYES: PERRLA, EOMI NECK: Supple. No carotid bruits or stridor appreciated LUNGS: CTA B/L, no wheezes, rales or rhonchi HEART: Irregular, rate controlled in the 70s ABDOMEN: Soft, NT, ND, BS Present. EXTREMITIES: No LE edema, pedal pulses intact. NEURO: CN II-XII intact grossly, Strength 5/5 in upper and lower extremities. Speech is normal. Normal [id number] test. Assessment & Plan Neuro: Subdural Hematoma Status post syncope/LOC Findings on CT: Interval development of small mixed attenuation subdural collections, right larger than left. 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 Mild mass effect with 4 mm of leftward midline shift. Neurosurgery consulted at [place] - no invasive intervention at this time Started on dexamethasone Monitor in ICU for neuro changes- Continue frequent neuro checks Repeat CT today Cardio: Atrial Fibrillation: Rate controlled, Not on any anticoagulation, asymptomatic PVC's Respiratory Aspiration Pneumonia On Levaquin and Clindamycin Aspiration precautions Supplemental O2 GI PPI for prophylaxis /Electrolytes: Sodium 140, Potassium 4.4, Magnesium 2.3, Calcium 8.9 serial labs BPH- Continue tamsulosin RENAL - stable ID Afebrile, no leukocytosis Aspiration pneumonia- Currently receiving clindamycin and levofloxacin Blood cultures negative for growth 2 Urine culture negative Sputum with night normal garcia ENDOCRINE No history of diabetes mellitus No history of hypothyroidism IV ACCESS Peripheral access in place No indication for central line at this time DVT PROPHYLAXIS No chemical prophylaxis secondary to subdural hematoma Continue teds and SCDs Resident Physician Supervision Note: Dr. Jazmine Bedoya was resident physician during care of patient. I separately evaluated patient and did history and exam. I discussed the case with the resident and generally agree with the findings and plan. CT scan remains unchanged with regards to size of subacute subdurals. Stable for downgraded to [facility], I discussed the case with Dr. Alberts Data Medications: Current Inpatient Medications Medications (Trade) Dose Ordered Sig/Duke Route Start Time Stop Time Status Last Admin Dose Admin Tamsulosin HCl (Flomax Cap) 0.4 mg HS PO 11/25/16 21:00 12/25/16 20:59 11/30/16 20:27 0.4 MG Acetaminophen (Tylenol Tab) 650 mg Q4H PRN PO 11/25/16 14:45 12/25/16 14:44 11/28/16 14:01 650 MG Al Hydrox/Mg Hydrox/Simethicone (Maalox Max Susp) 15 ml Q4H PRN PO 11/25/16 14:45 12/25/16 14:44 Magnesium Hydroxide (Milk Of Magnesia Susp) 30 ml Q12H PRN PO 11/25/16 14:45 12/25/16 14:44 Ondansetron HCl (Zofran Inj) 4 mg Q6H PRN IV 11/25/16 14:45 12/25/16 14:44 11/29/16 11:55 4 MG Polyethylene (Miralax Powder Packet) 17 gm DAILY PRN PO 11/25/16 14:45 12/25/16 14:44 Sucralfate (Carafate Susp) 1 gm QID PO 11/26/16 13:00 12/26/16 12:59 12/01/16 09:11 1 GM Lactobacillus Acidophilus (Floranex Tab) 4 tab TIDM PO 11/28/16 07:30 12/28/16 07:29 12/01/16 08:24 4 TAB Pantoprazole Sodium (Protonix Tab) 40 mg QAM PO 11/28/16 09:00 12/28/16 08:59 12/01/16 09:10 40 MG Diphenhydramine HCl (Benadryl Cap) 25 mg Q6H PRN PO 11/28/16 16:00 12/28/16 15:59 11/30/16 07:22 25 MG Levofloxacin (Levaquin Tab) 750 mg DAILY@11 PO 12/01/16 11:00 12/03/16 08:59 Clindamycin HCl 450 mg 450 mg QID PO 11/30/16 17:00 12/02/16 16:29 12/01/16 09:10 450 MG Dexamethasone Sodium Phosphate/ Syringe (Decadron Inj/ Syringe) 0.5 ml @ 1 mls/min Q8@0400,1200,2000 IV 12/01/16 04:00 12/31/16 03:59 12/01/16 03:36 1 MLS/MIN I & O: 24-Hour Column 12/01/16 07:59 Intake Total 1140 ml Output Total 3500 ml Balance -2360 ml Vital Signs: Date Time Temp Pulse Resp B/P Pulse Ox O2 Delivery O2 Flow Rate FiO2 12/01/16 05:59 66 25 131/69 95 12/01/16 04:59 58 15 151/69 95 12/01/16 04:00 36.3 12/01/16 04:00 98 Nasal Cannula 2.0 12/01/16 03:58 65 21 130/67 95 12/01/16 02:58 64 20 128/71 94 12/01/16 01:59 64 18 127/67 96 12/01/16 00:58 67 23 114/65 95 12/01/16 00:01 36.8 11/30/16 23:59 97 Nasal Cannula 2.0 11/30/16 23:58 67 17 136/70 95 11/30/16 23:30 57 18 96 11/30/16 22:59 68 25 142/66 95 11/30/16 22:00 66 23 156/77 98 Nasal Cannula 2.0 11/30/16 21:45 75 21 152/92 95 Room Air 11/30/16 21:30 74 21 152/71 93 Room Air 11/30/16 21:16 71 21 150/70 96 Room Air 11/30/16 21:15 36.7 76 20 159/59 96 Room Air 11/30/16 21:00 36.7 74 20 96 11/30/16 19:40 36.7 74 20 157/63 96 Room Air 11/30/16 18:18 36.8 78 20 94 11/30/16 16:01 Room Air 11/30/16 15:18 36.8 78 20 125/59 94 Room Air 11/30/16 12:00 Room Air 11/30/16 11:32 36.8 85 18 128/71 96 Laboratory Results: Last 24 Hours Test 12/01/16 05:37 12/01/16 05:40 White Blood Count 9.64 K/uL Red Blood Count 3.88 M/uL Hemoglobin 12.2 g/dL Hematocrit 34.4 % Mean Corpuscular Volume 88.7 fL Mean Corpuscular Hemoglobin 31.4 pg Mean Corpuscular Hemoglobin Concent 35.5 g/dl RDW Standard Deviation 42.5 fL RDW Coefficient of Variation 13.2 % Platelet Count 238 K/uL Mean Platelet Volume 9.2 fL Sodium Level 140 mmol/L Potassium Level 4.4 mmol/L Chloride Level 106 mmol/L Carbon Dioxide Level 25 mmol/L Anion Gap 9.0 mmol/L Blood Urea Nitrogen 21 mg/dl Creatinine 1.10 mg/dl Est Creatinine Clear Calc Drug Dose 50.6 ml/min Estimated GFR () 70.6 Estimated GFR (Non- 60.9 BUN/Creatinine Ratio 18.6 Random Glucose 133 mg/dl Calcium Level 8.9 mg/dl Magnesium Level 2.3 mg/dl Bedside Glucose 144 mg/dl Resident Tracking Resident Involvement: Resident Care Provided Care Provided: Adult Hospital Medicine
[2016-12-01] MEDS ORDERED: LEVOFLOXACIN 750 MG TAB PO SCH (11:00)
--- NOTE | 2016-12-01 12:21 | DIAGNOSTIC IMAGING REPORT ---
CT OF THE HEAD WITHOUT CONTRAST CLINICAL HISTORY: Follow up subdural hematoma. COMPARISON STUDY: Head CT November 30, 2016. CT DOSE: 614.27 mGy.cm TECHNIQUE: Helical axial images of the head were obtained without IV contrast. Automated exposure control was utilized for the study. FINDINGS: Mixed attenuation bilateral subdural hematomas are unchanged since prior exam. Only trace intermediate attenuation fluid is noted suggestive of subacute to acute hemorrhage. The remainder of the findings are likely chronic. Prominence of the extra-axial CSF spaces is again noted. Minimal leftward midline shift is noted. The basilar cisterns are patent. Ventricular system is stable. 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 No calvarial fracture is identified. IMPRESSION: No change in mixed attenuation bilateral subdural hematomas, as described above. The findings suggest trace acute to subacute subdural blood superimposed upon chronic changes. Electronically signed by: Raymond Leon M.D. 12/01/2016 12:20 PM Dictated Date/Time: 12/01/2016 12:11 PM
--- NOTE | 2016-12-01 14:21 | DIAGNOSTIC IMAGING REPORT ---
CHEST ONE VIEW PORTABLE HISTORY: F/U pneumonia COMPARISON: Chest 11/26/2016. FINDINGS: No pneumothorax. Stable blunting the bilateral posterior sulci. The left lung appears clear. The heart is normal in size. Hazy opacity within the right lung persists. IMPRESSION: No change in the right lung hazy opacity which favors a pneumonia. Recommend one month chest x-ray follow-up to ensure complete resolution. Electronically signed by: Khanh Holbrook M.D. 12/01/2016 2:19 PM Dictated Date/Time: 12/01/2016 2:18 PM
[2016-12-01] MEDS ORDERED: TYL325X PO (15:53)
[2016-12-01] MEDS ORDERED: CLC150 PO (15:53)
[2016-12-01] MEDS ORDERED: DXM/4 PO (15:53)
[2016-12-01] MEDS ORDERED: PRT40 PO (15:53)
[2016-12-01] MEDS ORDERED: LVQ750 PO (15:53)
[2016-12-01] MEDS ORDERED: LCTX PO (15:53)
--- NOTE | 2016-12-01 16:16 | Discharge Instructions ---
Discharge Instructions Admission Reason for Admission: Aspiration PNA,Syncope Discharge Discharge Diagnosis / Problem: Aspiration PNA, SYncope, Subdural hematoma Discharge Goals Goal(s): Improve disease control, Diagnostic testing, Therapeutic intervention Activity Recommendations Activity Level: Assistance Required Therapies: Physical Therapy, Weight Bearing Status (full), Occupational Therapy . Additional Information Patient informed of condition: Yes Advance Directives: Yes DNR: No Level of Care: Skilled Communicable Disease: No Prognosis: Stable Oxygen at (LPM): N/A [place] Catheter: No Instructions / Follow-Up Instructions / Follow-Up HOSPITAL COURSE This is an 86-year-old male who presents to Emergency Room complaining of 2 episodes of syncopal episode that occurred the night prior to and the morning of admission that was preceeded by nausea and vomiting. He also had complaints of diarrhea and some gas. ER doctor also mentioned that patient may have aspirated some fluid. The patient denies any abdominal pain. The transfer paperwork from [facility] notable for temperature of 100.6. He was experiencing symptoms of gastroenteritis followed by syncope as per daughter. 86 with nausea/vomiting from gastroenteritis, likely vasovagal syncope and probable aspiration pneumonia as a result of previous vomiting, with fevers and development of hemoptysis. Also with slow A-fib on admission. Syncope, PAF rate controlled and was actually bradycardic initially-likely vasovagal as was associated with nausea/vomiting from GI illness at home. Did have slow A-fib sometimes into the 30s-40s while sleeping on admission but otherwise asymptomatic. Improved, no significant events on tele in 4 days, rates improved, no further syncope ECHO: * The left ventricle is normal in size. * Left ventricular systolic function is normal. * Ejection Fraction = 60-65%. * The left ventricular wall motion is normal. * The right ventricle is mildly dilated. * The right ventricular systolic function is normal. * There is mild tricuspid regurgitation. * Right ventricular systolic pressure is elevated at 30-40mmHg. -Cardiology consult appreciated and no indication for pacemaker placement, had improvement -not on AC for fall risk with peripheral neuropathy and syncope, and now with subdural hemorrhage so should avoid ASA too for at least 2-3 weeks or until ok by Neurosurgeon in follow up -no AV catrachito blockers recommended due to bradycardia and could have underlying conduction problems unless HR goes higher as per Cardio recommendations -f/u with Dr. Wilson/Cardiology within 2 weeks Aspiration pneumonia, and developed hemoptysis-this is pretty much cimpletely resolved at this point on day of discharge, doing very well. Sputum culture with normal garcia CT Chest shows: 1. Cardiomegaly and emphysema. 2. Patchy airspace consolidation is seen throughout the right lung. The appearance is typical for pneumonia. Radiographic follow-up to resolution is recommended. 3. Small pleural effusions. 4. Hiatal hernia. 5. Pneumobilia is noted. There are changes of previous cholecystectomy and this is likely related to history of sternotomy. Correlation with the patient's surgical history will be required. -switch to po clindamycin for aspiration PNA and po levaquin for gram negative pneumonia coverage to finish out 10 day total course -Hemoptysis is likely from gastric contents irritating lungs -appreciate consult Pulm for further recommendations -repeat CXR on 12/01 with persistent right lung opacity -follow up CXR recommended in 1 month to ensure resolution -f/u with Pulmonology Dr. 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 Tylenol and Benadryl would help temporarily but headache persisted. Repeat head CT done on 11/30 demonstrated interval development of the bilateral small SDHs with 4 mm midline shift. This is likely as a result of his syncope and falls the day of admission. Pt remains stable and no focal neuro symptoms other than his usual peripheral neuropathy and the headache. I spoke with Neuro stone and plate preparer apprentice who recommended calling [facility] on-call NS. NS Dr. Kaye at [facility] thought pt should be observed here at [facility] as SDHs were small and midline shift was small and due to age-related atrophy, most likely has room to allow shift. He recommended starting Decadron for headache and can help resorb blood, also to observe and will need repeat CT head in 4-6 weeks, can f/u with him in the office in [place] at that time. His headache markedly improved and then was resolved after 2 doses of decadron. Repeat head CT was stable and he was doing well. He is not on any anticoagulants and his ASA was actually stopped after admission anyway for his hemoptysis. -continue Decadron po and taper down over 1 week -f/u head CT in 4-6 weeks with f/u with NS Dr. Kaye at [facility] [id number] to po PPI, add on probiotics at pt's request, NO anticoagulation or antiplatelets due to hemoptysis and SHD, SCDs Full code. Dispo-to SNF today Current Hospital Diet Patient's current hospital diet: Low Sodium Diet (2gm Na) Discharge Diet Recommended Diet: Low Sodium Diet (2gm Na) Procedures Procedures Performed: Head CT x [address] ECHO Chest xrays Pending Studies Studies pending at discharge: no Physician Orders On Transfer Special Precautions: Peripheral neuropathy and Fall precautions Vital Signs: Routine Weigh: Routine Additional Orders: Follow up with Neurosurgery [facility] in 4-6 weeks with repeat head CT prior Follow up with Pulmonology Dr. Jacobs in 2-4 weeks Follow up with Dr. Wilson, Cardiology within 1 month Follow up with PCP within 1 week POLST Discussion: Not Applicable Laboratory Results Last 24 Hours Test 12/01/16 05:37 12/01/16 05:40 12/01/16 10:27 White Blood Count 9.64 K/uL Red Blood Count 3.88 M/uL Hemoglobin 12.2 g/dL Hematocrit 34.4 % Mean Corpuscular Volume 88.7 fL Mean Corpuscular Hemoglobin 31.4 pg Mean Corpuscular Hemoglobin Concent 35.5 g/dl RDW Standard Deviation 42.5 fL RDW Coefficient of Variation 13.2 % Platelet Count 238 K/uL Mean Platelet Volume 9.2 fL Sodium Level 140 mmol/L Potassium Level 4.4 mmol/L Chloride Level 106 mmol/L Carbon Dioxide Level 25 mmol/L Anion Gap 9.0 mmol/L Blood Urea Nitrogen 21 mg/dl Creatinine 1.10 mg/dl Est Creatinine Clear Calc Drug Dose 50.6 ml/min Estimated GFR () 70.6 Estimated GFR (Non- 60.9 BUN/Creatinine Ratio 18.6 Random Glucose 133 mg/dl Calcium Level 8.9 mg/dl Magnesium Level 2.3 mg/dl Bedside Glucose 144 mg/dl 193 mg/dl Medical Emergencies . Who to Call and When: Medical Emergencies: If at any time you feel your situation is an emergency, please call 911 immediately. . Non-Emergent Contact Non-Emergency issues call your: Primary Care Provider Call Non-Emergent contact if: you have a fever, your pain is not controlled, your pain is worsening, your pain is unusual for you, your pain is concerning you, you have any medication questions . . "Provider Documentation" section prepared by Pamela Alberts. Core Measure Problem Core Measures: None
--- NOTE | 2016-12-01 22:11 | Discharge Summary ---
Discharge Summary Admission Date: Nov 25, 2016 at 14:49 Discharge Date: Dec 01, 2016 Discharge Disposition: assisted facility Principal Diagnosis: Syncope,Aspiration PNA, Subdural hematomas Problems/Secondary Diagnoses: Viral gastroenteritis Vasovagal syncope Hemoptysis Syncope PAF Right ventricular systolic pressure is elevated at 30-40mmHg Peripheral neuropathy Subdural hematomas bilateral with 4 mm leftward midline shift Emphysema on CT Chest Small pleural effusions. Hiatal hernia. Pneumobilia Previous cholecystectomy H/o prostate CA BPH Urinary incontinence Procedures: CT SCAN OF THE BRAIN WITHOUT IV CONTRAST CLINICAL HISTORY: Strokelike symptoms. COMPARISON STUDY: No priors. TECHNIQUE: Unenhanced axial CT scan of the brain is performed from the vertex to the skull base. CT DOSE: 614.27 mGy.cm FINDINGS: Brain parenchyma: There are age-related involutional changes noting moderate patchy subcortical and periventricular microangiopathic change. There is no hemorrhage, mass effect, or evidence of acute territorial ischemia by CT criteria. Lomeli-white matter is preserved. No extra-axial fluid collection is seen. Ventricles, sulci, cisterns: Prominent secondary to involutional change. Intracranial vasculature: There is atherosclerotic calcification of the cavernous carotid and vertebral arteries. Calvarium: Unremarkable. Sinuses and mastoids: Trace mucosal thickening is seen in the right maxillary antrum. The remaining visualized paranasal sinuses are clear. The mastoid air cells are well pneumatized. Orbits: The bony orbits are grossly intact. There are bilateral ocular lens implants. There is been banding of the right ocular globe. IMPRESSION: Senescent changes as above with no hemorrhage, mass effect, or evidence of acute territorial ischemia by CT criteria. Electronically signed by: Folrian Quinn M.D. 11/25/2016 12:08 PM Chest Xray 11/25/16: 1. Cardiomegaly and emphysema. 2. There is patchy airspace consolidation at the right lung base. Correlate clinically for evidence of an infectious/inflammatory pneumonitis. Radiographic follow-up to resolution is recommended. 3. Small pleural effusions. CXR 11/26/16: Significant progression of right lung airspace opacity. The appearance favors pneumonia although asymmetric pulmonary edema could appear similar. CT SCAN OF THE CHEST WITHOUT IV CONTRAST CLINICAL HISTORY: Hemoptysis. COMPARISON STUDY: Chest x-ray dated 11/26/16. TECHNIQUE: CT scan of the thorax was performed from the thoracic inlet to the upper abdomen. Images are reviewed in the axial, sagittal, and coronal planes. IV contrast was not administered for this examination as per the front clinician. CT DOSE: 264.46 mGy.cm FINDINGS: Thyroid: Atrophic. Thoracic aorta: There is atherosclerotic calcification of the thoracic aorta, which is normal in caliber and demonstrates standard 3-vessel arch anatomy. Heart: The heart is mildly enlarged and there is a small pericardial effusion. The coronary arteries are densely calcified. There is diminished attenuation of the cardiac blood pool as compared to the myocardium suggesting anemia. The pulmonary trunk is normal in caliber. Lungs and pleural spaces: Evaluation of the lung parenchyma is modestly degraded by respiratory motion artifact. Emphysema is noted. Small pleural effusions are identified. There is airspace consolidation throughout the right lung, greatest in the right lower lobe. No consolidative change is identified in the left lung. The trachea and central airways are patent. Mediastinum: There is no mediastinal lymphadenopathy. Erica: Not well assessed without IV contrast. Axillae: There is no axillary lymphadenopathy. Upper abdomen: A small hiatal hernia is identified. Pneumobilia is noted and there is evidence of cholecystectomy. Visualized portions of the kidneys show cortical atrophy. Parapelvic cysts are suggested on the left. There is significant glandular atrophy of the visualized pancreas. Advanced atherosclerotic calcification is noted in the partially imaged abdominal aorta. Skeletal structures: The skeletal structures are osteopenic. Degenerative change is present throughout the thoracic spine. Arthritic change is also seen in the shoulders. No lytic or blastic bony lesions are seen. IMPRESSION: 1. Cardiomegaly and emphysema. 2. Patchy airspace consolidation is seen throughout the right lung. The appearance is typical for pneumonia. Radiographic follow-up to resolution is recommended. 3. Small pleural effusions. 4. Hiatal hernia. 5. Pneumobilia is noted. There are changes of previous cholecystectomy and this is likely related to history of sternotomy. Correlation with the patient's surgical history will be required. 6. Additional changes as above. Electronically signed by: Florian Quinn M.D. 11/28/2016 11:[address] OF THE HEAD WITHOUT CONTRAST CLINICAL HISTORY: Headache status post fall. COMPARISON STUDY: Head CT November 25, 2016. CT DOSE: 537.48 mGy.cm TECHNIQUE: Helical axial images of the head were obtained without IV contrast. Automated exposure control was utilized for the study. FINDINGS: There has been interval development of small bilateral subdural intermediate attenuation collections since exam of November 25, 2016. The left subdural hematoma measures 2 mm in thickness. The right subdural hematoma measures approximately 4 mm. Prominence of the extra-axial CSF spaces, right greater left, is noted. 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 Ventricular system is stable. The basilar cisterns are patent. 4 mm of leftward midline shift has developed. There is no calvarial fracture. IMPRESSION: 1. Interval development of small mixed attenuation subdural collections, right larger than left. 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 Mild mass effect with 4 mm of leftward midline shift. 2. No calvarial fracture. Electronically signed by: Raymond Leon M.D. 11/30/2016 4:45 PM CXR 12/01/16:No change in the right lung hazy opacity which favors a pneumonia. Recommend one month chest x-ray follow-up to ensure complete resolution. CT OF THE HEAD WITHOUT CONTRAST CLINICAL HISTORY: Follow up subdural hematoma. COMPARISON STUDY: Head CT November 30, 2016. CT DOSE: 614.27 mGy.cm TECHNIQUE: Helical axial images of the head were obtained without IV contrast. Automated exposure control was utilized for the study. FINDINGS: Mixed attenuation bilateral subdural hematomas are unchanged since prior exam. Only trace intermediate attenuation fluid is noted suggestive of subacute to acute hemorrhage. The remainder of the findings are likely chronic. Prominence of the extra-axial CSF spaces is again noted. Minimal leftward midline shift is noted. The basilar cisterns are patent. Ventricular system is stable. 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 No calvarial fracture is identified. IMPRESSION: No change in mixed attenuation bilateral subdural hematomas, as described above. The findings suggest trace acute to subacute subdural blood superimposed upon chronic changes. Electronically signed by: Raymond Leon M.D. 12/01/2016 12:20 PM ECHO: * The left ventricle is normal in size. * Left ventricular systolic function is normal. * Ejection Fraction = 60-65%. * The left ventricular wall motion is normal. * The right ventricle is mildly dilated. * The right ventricular systolic function is normal. * There is mild tricuspid regurgitation. * Right ventricular systolic pressure is elevated at 30-40mmHg. Consultations: Cardiology Critical Care Medicine Pulmonology [facility] Neurosurgery Medication Reconciliation New Medications: Dexamethasone (Decadron) 4 Mg Tab 4 MG PO BID for 6 Days, #6 TAB x2 days then 1/2 tab bid x 2 days then 1/2 tab once daily x 2 days then stop Acetaminophen (Tylenol) 325 Mg Tab 650 MG PO Q4H PRN for Pain or Fever for 30 Days, #240 TAB Clindamycin HCl (Clindamycin HCl) 150 Mg Cap 300 MG PO QID for 4 Days, #32 CAP Lactobacillus Acidophilus (Floranex) 1 Tab Tab 4 TAB PO TIDM for 4 Days, #48 TAB Levofloxacin (Levofloxacin) 750 Mg Tab 750 MG PO DAILY@11 for 4 Days, #4 TAB Pantoprazole (Pantoprazole Sodium) 40 Mg Tab 40 MG PO QAM for 7 Days, #7 TAB Continued Medications: Tamsulosin Hcl (Flomax) 0.4 Mg Cap 0.4 MG PO HS, CAP Discharge Exam Physical Exam General Appearance: WD/WN, no apparent distress Eyes: normal inspection, EOMI, sclerae normal Neck: trachea midline Respiratory/Chest: no respiratory distress, no accessory muscle use, + crackles (at right base and righ tmiddle lung field, otherwise clear) Cardiovascular: no edema, no gallop, no murmur, + irregularly irregular (with normal rate) Abdomen: normal bowel sounds, non tender, soft Extremities: non-tender, normal inspection, no pedal edema, no calf tenderness Neurologic/Psychiatric: alert, normal mood/affect, oriented x 3, CN 2-12 intact , 5/5 strength throughout Skin: normal color, warm/dry, no rash Review of Systems: Constitutional: No fever Eyes: No diplopia ENT: No problem reported (no further headache) Respiratory: + cough, + hemoptysis (very scant), + sputum Cardiovascular: No chest pain Abdomen: No pain Musculoskeletal: No problem reported Genitourinary - Male: + urinary incontinence Neurologic: + numbness/tingling (feet chronically) Psychiatric: No problem reported Endocrine: No problem reported Hematologic / Lymphatic: No problem reported Integumentary: No problem reported Hospital Course This is an 86-year-old male who presents to Emergency Room complaining of 2 episodes of syncopal episode that occurred the night prior to and the morning of admission that was preceeded by nausea and vomiting. He also had complaints of diarrhea and some gas. ER doctor also mentioned that patient may have aspirated some fluid. The patient denies any abdominal pain. The transfer paperwork from [facility] notable for temperature of 100.6. He was experiencing symptoms of gastroenteritis followed by syncope as per daughter. 86 with nausea/vomiting from gastroenteritis, likely vasovagal syncope and probable aspiration pneumonia as a result of previous vomiting, with fevers and development of hemoptysis. Also with slow A-fib on admission. Syncope, PAF rate controlled and was actually bradycardic initially-likely vasovagal as was associated with nausea/vomiting from GI illness at home. Did have slow A-fib sometimes into the 30s-40s while sleeping on admission but otherwise asymptomatic. Improved, no significant events on tele in 4 days, rates improved, no further syncope ECHO: * The left ventricle is normal in size. * Left ventricular systolic function is normal. * Ejection Fraction = 60-65%. * The left ventricular wall motion is normal. * The right ventricle is mildly dilated. * The right ventricular systolic function is normal. * There is mild tricuspid regurgitation. * Right ventricular systolic pressure is elevated at 30-40mmHg. -Cardiology consult appreciated and no indication for pacemaker placement, had improvement -not on AC for fall risk with peripheral neuropathy and syncope, and now with subdural hemorrhage so should avoid ASA too for at least 2-3 weeks or until ok by Neurosurgeon in follow up -no AV catrachito blockers recommended due to bradycardia and could have underlying conduction problems unless HR goes higher as per Cardio recommendations -f/u with Dr. Wilson/Cardiology within 2 weeks Aspiration pneumonia, and developed hemoptysis-this is pretty much cimpletely resolved at this point on day of discharge, doing very well. Sputum culture with normal garcia CT Chest shows: 1. Cardiomegaly and emphysema. 2. Patchy airspace consolidation is seen throughout the right lung. The appearance is typical for pneumonia. Radiographic follow-up to resolution is recommended. 3. Small pleural effusions. 4. Hiatal hernia. 5. Pneumobilia is noted. There are changes of previous cholecystectomy and this is likely related to history of sternotomy. Correlation with the patient's surgical history will be required. -switch to po clindamycin for aspiration PNA and po levaquin for gram negative pneumonia coverage to finish out 10 day total course -Hemoptysis is likely from gastric contents irritating lungs -appreciate consult Pulm for further recommendations -repeat CXR on 12/01 with persistent right lung opacity -follow up CXR recommended in 1 month to ensure resolution -f/u with Pulmonology Dr. 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 Tylenol and Benadryl would help temporarily but headache persisted. Repeat head CT done on 11/30 demonstrated interval development of the bilateral small SDHs with 4 mm midline shift. This is likely as a result of his syncope and falls the day of admission. Pt remains stable and no focal neuro symptoms other than his usual peripheral neuropathy and the headache. I spoke with Neuro unit receptionist who recommended calling [facility] on-call NS. ALEKSANDR Kaye at [facility] thought pt should be observed here at [facility] as SDHs were small and midline shift was small and due to age-related atrophy, most likely has room to allow shift. He recommended starting Decadron for headache and can help resorb blood, also to observe and will need repeat CT head in 4-6 weeks, can f/u with him in the office in [place] at that time. His headache markedly improved and then was resolved after 2 doses of decadron. Repeat head CT was stable and he was doing well. He is not on any anticoagulants and his ASA was actually stopped after admission anyway for his hemoptysis. -continue Decadron po and taper down over 1 week -f/u head CT in 4-6 weeks with f/u with NS Dr. Kaye at [facility] [id number] to po PPI, add on probiotics at pt's request, NO anticoagulation or antiplatelets due to hemoptysis and SHD, SCDs Full code. Dispo-to SNF today Total Time Spent: Greater than 30 minutes This includes examination of the patient, discharge planning, medication reconciliation, and communication with other providers. Discharge Instructions Please refer to the electronic Patient Visit Report (Discharge Instructions) for additional information. Follow-Up With PCP 1 week With Cardiology 1 month With Pulm within 2 weeks With Neurosurgery in 4-6 weeks Have repeat CXR in [address] head in 4-6 weeks Additional Copies To Jefry Jacobs DO; Dm Wilson, DO; Debora Briggs M.D.
== END 2016-12-01 18:20 | DRG 177 ==
LOC: ENRESERVDT → ENRESERVTM → EDBD 10:58 → C.EDC 10:59 → C.2E 14:49 → C.4E 11-30 18:30 → C.MSICU 11-30 21:23 → CANBEDREQ 12-01 16:19
PROVIDERS: ADMIT Hospitalist; ATTEND Family Medicine
DX: J69.0 Pneumonitis due to inhalation of food and vomit (principal); S06.5X0A Traumatic subdural hemorrhage without loss of consciousness, initial encounter; R04.2 Hemoptysis; R55 Syncope and collapse; A08.4 Viral intestinal infection, unspecified; E86.0 Dehydration; I48.0 Paroxysmal atrial fibrillation; R26.89 Other abnormalities of gait and mobility; R60.0 Localized edema; I51.7 Cardiomegaly; G62.9 Polyneuropathy, unspecified; N40.1 Benign prostatic hyperplasia with lower urinary tract symptoms; R32 Unspecified urinary incontinence; R35.0 Frequency of micturition; W19.XXXA Unspecified fall, initial encounter; Z85.46 Personal history of malignant neoplasm of prostate; Z92.3 Personal history of irradiation; Z88.0 Allergy status to penicillin; Z82.49 Family history of ischemic heart disease and other diseases of the circulatory system

== ENCOUNTER → 2016-12-28 | Outpatient (CLI) | payer BC, OTHER ==
[~2016-12-28] MED LIST: CLC150 PO; LCTX PO; LVQ750 PO; PRT40 PO; TAMS0.4C38 PO; TYL325X PO
--- NOTE | 2016-12-28 14:54 | DIAGNOSTIC IMAGING REPORT ---
CHEST 2 VIEWS ROUTINE CLINICAL HISTORY: ASPIRATION PNEUMONIA aspiration COMPARISON STUDY: 12/01/2016. FINDINGS: Lungs are currently considered clear. Mild Baseline emphysematous changes present. Slight chronic blunting of the lateral costophrenic angles. No focal infiltrate. IMPRESSION: Negative chest. Lungs are now considered clear. Baseline emphysematous change Electronically signed by: Varinder Alberto M.D. 12/28/2016 2:53 PM Dictated Date/Time: 12/28/2016 2:52 PM
== END | disposition home or self-care (01) ==
LOC: C.RAD1850 14:20
PROVIDERS: ATTEND Internal Medicine Pulmonary Disease
DX: J69.0 Pneumonitis due to inhalation of food and vomit (principal)

== ENCOUNTER → 2017-06-21 | Outpatient (CLI) | payer BC | END | disposition home or self-care (01) | LOC: C.LABSPEC 10:46 | PROVIDERS: ATTEND Nurse Practitioner Family | DX: R39.15 Urgency of urination (principal) ==

== ENCOUNTER → 2017-12-03 | Outpatient (CLI) | payer BC, MEDICARE | END | disposition home or self-care (01) | LOC: C.LABSPEC 16:53 | PROVIDERS: ATTEND Nurse Practitioner Adult Health | DX: R39.15 Urgency of urination (principal); N39.41 Urge incontinence ==

== ENCOUNTER 2017-12-10 12:34 | Emergency (ER) | payer MEDICARE ==
[~2017-12-10] VITALS: Ht 182.9 cm; Wt 82.1 kg
[2017-12-10 12:47] VITALS: TEMP 36.6; O2SAT 96; Ht 182.9 cm; Wt 82.1 kg
[2017-12-10 13:29] LABS: BASO % 0.5 %; BASO ABS # 0.03 K/uL (0-0.2); EOS % 2.7 %; EOS ABS # 0.17 K/uL (0-0.5); HEMATOCRIT 35.1 % (42-52); HEMOGLOBIN 12.1 g/dL (14.0-18.0); IG# 0.01 K/uL (0.00-0.02); LYMPH % 20.9 %; LYMPH ABS # 1.32 K/uL (1.2-3.4); MEAN CELL VOLUME 91.9 fL (80-100); MEAN CORPUSCULAR HEMOGLOBIN 31.7 pg (25-34); MEAN CORPUSCULAR HGB CONC 34.5 g/dl (32-36); MEAN PLATELET VOLUME 9.3 fL (7.4-10.4); MONO % 12.4 %; MONO ABS # 0.78 K/uL (0.11-0.59); NEUT % 63.3 %; PLATELET COUNT 203 K/uL (130-400); RED CELL DISTRIBUTION WIDTH CV 14.1 % (11.5-14.5); RED CELL DISTRIBUTION WIDTH SD 47.6 fL (36.4-46.3); WHITE BLOOD COUNT 6.31 K/uL (4.8-10.8)
[2017-12-10] MEDS ORDERED: FURO20TA PO (13:36)
[2017-12-10] MEDS ORDERED: FURO-85 PO (13:36)
[2017-12-10 13:38] LABS: ALBUMIN 3.9 gm/dl (3.4-5.0); ALT/SGPT 28 U/L (12-78); BLOOD UREA NITROGEN 29 mg/dl (7-18); CALCIUM 9.2 mg/dl (8.5-10.1); CARBON DIOXIDE 28 mmol/L (21-32); CREATININE 1.42 mg/dl (0.60-1.40); GLUCOSE 114 mg/dl (70-99); POTASSIUM 3.9 mmol/L (3.5-5.1); SODIUM 139 mmol/L (136-145)
[2017-12-10 13:48] LABS: ALKALINE PHOSPHATASE 49 U/L (45-117); AST/SGOT 27 U/L (15-37); CKMB 3.7 ng/ml (0.5-3.6); TOTAL PROTEIN 7.2 gm/dl (6.4-8.2)
--- NOTE | 2017-12-10 13:53 | DIAGNOSTIC IMAGING REPORT ---
CHEST ONE VIEW PORTABLE HISTORY: 87 years-old Male md order acute near syncopal event COMPARISON: Chest radiograph 12/28/2016, CT chest 11/28/2016 TECHNIQUE: Portable AP view of the chest FINDINGS: Cardiomediastinal and hilar silhouettes are within normal limits. Atherosclerosis of the aorta. Emphysematous changes redemonstrated without pneumothorax, pleural effusion, focal airspace consolidation or overt pulmonary edema. Unchanged subsegmental bibasilar reticular opacities are seen suggesting areas of chronic scarring. Bones of the chest appear grossly intact. IMPRESSION: Emphysema without acute process. The above report was generated using voice recognition software. It may contain grammatical, syntax or spelling errors. Electronically signed by: Kuldeep Richardson M.D. 12/10/2017 1:52 PM Dictated Date/Time: 12/10/2017 1:50 PM
[2017-12-10] MEDS ORDERED: SODIUM CHLORIDE 0.9% 1000ML 1,000 ML IV STA (14:14)
--- NOTE | 2017-12-10 14:29 | EMERGENCY ROOM VISIT NOTE ---
History Report prepared by Eri: Rosalina Quintanilla Under the Supervision of: Dr. Cliff Sahni M.D. First contact with patient: 14:10 Chief Complaint: SYNCOPE (NEAR SYNCOPE) Stated Complaint: NEAR SYNCOPE Nursing Triage Summary: pt states near syncope episode this am while in kitchen at [facility]. pt denies fall, loc, sob, or cp. pt states, "this happened a few weeks ago and I was told I had a vagal response." History of Present Illness The patient is a 87 year old male who presents to the Emergency Room with complaints of a resolved syncopal episode that occurred prior to arrival today. The patient states that earlier he was eating in the kitchen when he became weak , dizzy, and had to lean over the sink to hold himself up. He reports that he was able to walk to the living room and lay down on the couch. When he was on the couch, his daughter states that he began shaking and reaching out as if he were falling, noting that he was not talking and seemed "out of it". The patient has a history of vasovagal syncope and reports that he had a similar syncopal episode one weak ago, noting he felt weak, the room started spinning, and fell to his hands and knees. He denies any nausea, vomiting, diarrhea, fevers, chills, or recent illness. His reports that he has been sleeping and feeling more tired than usual. The patient states that he has been staying hydrated and eating normally. His daughter states that he had a brain bleed one year ago, secondary to falling and landing on his buttocks. The patient does not take any blood thinners. Source of History: patient Onset: prior to arrival Position: other (global) Quality: other (syncopal episode) Timing: resolved Associated Symptoms: No fevers, No chills, No nausea, No vomiting, No diarrhea Note: Associated symptoms include: weak, shaking, reaching out as if he were falling, more tired than usual, and seeming "out of it. Patient denies any recent illness. Review of Systems See HPI for pertinent positives and negatives. A total of ten systems were reviewed and were otherwise negative. Past Medical & Surgical Medical Problems: (1) Emphysema lung Family History No pertinent family history Social History Smoking Status: Former Smoker Drug Use: none Marital Status: Housing Status: lives with family Occupation Status: retired Current/Historical Medications Scheduled Furosemide (Lasix), 40 MG PO MWF Furosemide (Lasix), 20 MG PO 4XWK Tamsulosin Hcl (Flomax), 0.4 MG PO HS Allergies Coded Allergies: Penicillins (Verified Allergy, Unknown, HIVES, 12/10/17) Physical Exam Vital Signs Date Time Temp Pulse Resp B/P (MAP) Pulse Ox O2 Delivery O2 Flow Rate FiO2 12/10/17 18:27 58 18 148/66 97 Room Air 12/10/17 17:34 78 20 157/69 98 Room Air 12/10/17 15:47 60 18 131/62 97 Room Air 12/10/17 14:27 58 18 131/73 92 Room Air 12/10/17 13:23 61 18 126/66 96 Room Air 74 127/56 80 135/60 12/10/17 12:50 66 12/10/17 12:47 96 Room Air 12/10/17 12:47 36.6 56 18 120/61 96 Room Air Physical Exam GENERAL: Awake, alert, well-appearing, in no distress HENT: Normocephalic, atraumatic. Oropharynx with dry mucous membranes and otherwise unremarkable. EYES: Normal conjunctiva. Sclera non-icteric. NECK: Supple. No nuchal rigidity. FROM. No JVD. RESPIRATORY: Clear to auscultation. CARDIAC: Regular rate, normal rhythm. Extremities warm and well perfused. Pulses equal. ABDOMEN: Soft, non-distended. No tenderness to palpation. No rebound or guarding. No masses. RECTAL: Deferred. MUSCULOSKELETAL: Chest examination reveals no tenderness. The back is symmetrical on inspection without obvious abnormality. There is no CVA tenderness to palpation. No joint edema. LOWER EXTREMITIES: Calves are equal size bilaterally and non-tender. No edema. No discoloration. NEURO: Normal motor and sensory. Normal cerebellar function with pvmrrg-[id number]-vctt , alternating palms, asml-un-rbiz SKIN: No rash or jaundice noted. Medical Decision & Procedures ER Provider Diagnostic Interpretation: Radiology results as stated below per my review and radiologist interpretation: CHEST ONE VIEW PORTABLE HISTORY: 87 years-old Male md order acute near syncopal event COMPARISON: Chest radiograph 12/28/2016, CT chest 11/28/2016 TECHNIQUE: Portable AP view of the chest FINDINGS: Cardiomediastinal and hilar silhouettes are within normal limits. Atherosclerosis of the aorta. Emphysematous changes redemonstrated without pneumothorax, pleural effusion, focal airspace consolidation or overt pulmonary edema. Unchanged subsegmental bibasilar reticular opacities are seen suggesting areas of chronic scarring. Bones of the chest appear grossly intact. IMPRESSION: Emphysema without acute process. The above report was generated using voice recognition software. It may contain grammatical, syntax or spelling errors. Electronically signed by: Kuldeep Richardson M.D. 12/10/2017 1:52 PM Dictated Date/Time: 12/10/2017 1:[address] HEAD WITHOUT CONTRAST (CT) CLINICAL HISTORY: near syncope COMPARISON STUDY: 12/01/2016 TECHNIQUE: Axial CT of the brain is performed from the vertex to the skull base. IV contrast was not administered for this examination. A dose lowering technique was utilized adhering to the principles of ALARA. CT DOSE: 651.12 mGy.cm FINDINGS: No intra or extra-axial mass lesions are visualized. There is no CT evidence of acute cortical infarction. There is no evidence of midline shift. There is no acute hemorrhage. No calvarial fractures are visualized. The previously identified isodense right subdural hematoma has resorbed. There are patchy white matter hypodensities likely on a small vessel basis. There is no evidence of pathologic ventricular dilatation. There is polypoid mucosal thickening within the right maxillary sinus. IMPRESSION: No acute intracranial findings Electronically signed by: Godwin Saavedra M.D. 12/10/2017 2:50 PM Dictated Date/Time: 12/10/2017 2:48 PM MRI OF THE BRAIN WITHOUT CONTRAST CLINICAL HISTORY: Vertigo, near syncope, strokelike activity COMPARISON STUDY: Noncontrast head CT dated 12/10/2017, FINDINGS: Sagittal T1, axial diffusion, proton density and T2 weighted axial, coronal FLAIR, and axial T1-weighted images were acquired. No intra or extra-axial mass lesions are visualized Axial diffusion-weighted images reveal no evidence of acute or subacute infarction. There is mild particular dilatation, likely secondary to volume loss. Proton density T2-weighted and FLAIR images reveal scattered foci of increased T2 signal within the white matter, likely on a small vessel basis. 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 There are foci of increased T2 signal within the left mastoid likely inflammatory. IMPRESSION: 1. No acute intracranial findings 2. No evidence of intracranial mass 3. Atrophy and white matter disease 4. No evidence of acute or subacute infarction 5. Foci of increased T2 signal within the left mastoid likely inflammatory Electronically signed by: Godwin Saavedra M.D. 12/10/2017 5:33 PM Dictated Date/Time: 12/10/2017 5:31 PM Laboratory Results 12/10/17 12:45 Red Blood Count 3.82, Mean Corpuscular Volume 91.9, Mean Corpuscular Hemoglobin 31.7, Mean Corpuscular Hemoglobin Concent 34.5, Mean Platelet Volume 9.3, Neutrophils (%) (Auto) 63.3, Lymphocytes (%) (Auto) 20.9, Monocytes (%) (Auto) 12.4, Eosinophils (%) (Auto) 2.7, Basophils (%) (Auto) 0.5, Neutrophils # (Auto ) 4.00, Lymphocytes # (Auto) 1.32, Monocytes # (Auto) 0.78, Eosinophils # (Auto ) 0.17, Basophils # (Auto) 0.03 12/10/17 12:45 Test 12/10/17 12:45 12/10/17 14:43 White Blood Count 6.31 K/uL (4.8-10.8) Red Blood Count 3.82 M/uL (4.7-6.1) Hemoglobin 12.1 g/dL (14.0-18.0) Hematocrit 35.1 % (42-52) Mean Corpuscular Volume 91.9 fL (80-100) Mean Corpuscular Hemoglobin 31.7 pg (25-34) Mean Corpuscular Hemoglobin Concent 34.5 g/dl (32-36) Platelet Count 203 K/uL (130-400) Mean Platelet Volume 9.3 fL (7.4-10.4) Neutrophils (%) (Auto) 63.3 % Lymphocytes (%) (Auto) 20.9 % Monocytes (%) (Auto) 12.4 % Eosinophils (%) (Auto) 2.7 % Basophils (%) (Auto) 0.5 % Neutrophils # (Auto) 4.00 K/uL (1.4-6.5) Lymphocytes # (Auto) 1.32 K/uL (1.2-3.4) Monocytes # (Auto) 0.78 K/uL (0.11-0.59) Eosinophils # (Auto) 0.17 K/uL (0-0.5) Basophils # (Auto) 0.03 K/uL (0-0.2) RDW Standard Deviation 47.6 fL (36.4-46.3) RDW Coefficient of Variation 14.1 % (11.5-14.5) Immature Granulocyte % (Auto) 0.2 % Immature Granulocyte # (Auto) 0.01 K/uL (0.00-0.02) Anion Gap 7.0 mmol/L (3-11) Est Creatinine Clear Calc Drug Dose 41.0 ml/min Estimated GFR () 51.5 Estimated GFR (Non- 44.4 BUN/Creatinine Ratio 20.6 (10-20) Calcium Level 9.2 mg/dl (8.5-10.1) Magnesium Level 2.7 mg/dl (1.8-2.4) Total Bilirubin 0.6 mg/dl (0.2-1) Aspartate Amino Transf (AST/SGOT) 27 U/L (15-37) Alanine Aminotransferase (ALT/SGPT) 28 U/L (12-78) Alkaline Phosphatase 49 U/L (45-117) Total Creatine Kinase 131 U/L (39-308) Creatine Kinase MB 3.7 ng/ml (0.5-3.6) Creatine Kinase MB Ratio 2.8 (0-3.0) Troponin I < 0.015 ng/ml (0-0.045) Total Protein 7.2 gm/dl (6.4-8.2) Albumin 3.9 gm/dl (3.4-5.0) Globulin 3.3 gm/dl (2.5-4.0) Albumin/Globulin Ratio 1.2 (0.9-2) Thyroid Stimulating Hormone (TSH) 5.350 uIu/ml (0.300-4.500) Free Thyroxine 0.90 ng/dl (0.80-1.60) Free Triiodothyronine 2.82 pg/ml (2.30-4.20) Urine Color DK YELLOW Urine Appearance CLEAR (CLEAR) Urine pH 5.0 (4.5-7.5) Urine Specific [place] 1.013 (1.000-1.030) Urine Protein NEG (NEG) Urine Glucose (UA) NEG (NEG) Urine Ketones NEG (NEG) Urine Occult Blood NEG (NEG) Urine Nitrite NEG (NEG) Urine Bilirubin NEG (NEG) Urine Urobilinogen NEG (NEG) Urine Leukocyte Esterase NEG (NEG) Urine WBC (Auto) 1-5 /hpf (0-5) Urine RBC (Auto) 0-4 /hpf (0-4) Urine Hyaline Casts (Auto) 5-10 /lpf (0-5) Urine Epithelial Cells (Auto) 10-20 /lpf (0-5) Urine Bacteria (Auto) NEG (NEG) Laboratory results reviewed by me Medications Administered Medications (Trade) Dose Ordered Sig/Duke Route Start Time Stop Time Status Last Admin Dose Admin Sodium Chloride 1,000 ml @ 999 mls/hr Q1H1M STAT IV 12/10/17 14:14 12/10/17 15:14 DC 12/10/17 14:35 999 MLS/HR ECG Per My Interpretation Indication: syncope Rate (beats per minute): 62 Rhythm: normal sinus Findings: 1st degree AV block, no acute ischemic change, other (normal axis) Comparison ECG Date: normal sinus replaced afib from 11/27/16 ED Course 1426: The patient was evaluated in room A2. A complete history and physical exam was performed. 162: I reevaluated the patient, who was resting comfortably. I discussed some test findings. 1811: I reevaluated the patient. Discussed results and discharge instructions: he verbalized understanding and agreement. The patient is ready for discharge. Medical Decision I reviewed the patient's past medical history, medications, and the nursing notes as described above. Differential diagnosis: Etiologies such as metabolic, infection, hypo/hyperglycemia, electrolyte abnormalities, cardiac sources, intracerebral event, toxicologic, neurologic, as well as others were entertained. The patient is an 87 y/o gentlemen with a pmhx of syncope and parosysmal afib not on anticoagulation 2/2 fall risk presents to the emergency department with episode of near syncope vs syncope per HPI. On arrival the patient is well- appearing in NAD. AFVSS. Neuro intact including normal cerebellar function with oeqdxc-sb-fyac, alternating palms, pqjv-yc-fwdw. EKG NSR without signs of acute ischemia. CT head unremarkable. Cr. 1.4 up from baseline of 1.0 1 year ago. BUN/ Cr > 20 suggesting prerenal etiology. Labs otherwise unremarkable including wbc and troponin wnl. CXR negative for PNA. MRI brain negative for acute findings. Patient feeling improved after IVF. Given reassuring exam and w/u no indication for further w/u or admission at this time. Patient has cardiology appointment next month but will contact to obtain earlier appointment. Findings and plan for follow-up reviewed with patient and family. Patient and family agreeable and d/c'd per discharge instructions. Medication Reconcilliation Current Medication List: was personally reviewed by me Blood Pressure Screening Patient's blood pressure: Normal blood pressure Blood pressure disposition: Did not require urgent referral Impression Primary Impression: Syncope Additional Impression: Dehydration Scribe Attestation The scribe's documentation has been prepared under my direction and personally reviewed by me in its entirety. I confirm that the note above accurately reflects all work, treatment, procedures, and medical decision making performed by me. Departure Information Dispostion Home / Self-Care Referrals Debora Briggs M.D. (PCP) Forms HOME CARE DOCUMENTATION FORM, IMPORTANT VISIT INFORMATION Patient Instructions ED Dehydration, ED Hypotension Orthostatic, ED Near Syncope Unkn, ED Near Syncope Vasovagal, My [facility] Additional Instructions Please follow up with your primary care physician in the next 1-3 days as well as your creative perfumer within the next week for re-evaluation and to repeat your kidney function tests. Your symptoms are most likely due to dehydration. Otherwise, your exam, EKG, chest xray, lab results, CT scan and MRI of your brain did not show signs of an emergent condition at this time. Drink plenty of fluids to ensure hydration. Return to the emergency department for worsening symptoms as described in the accompanying instructions. Problem Qualifiers
--- NOTE | 2017-12-10 14:52 | DIAGNOSTIC IMAGING REPORT ---
CT HEAD WITHOUT CONTRAST (CT) CLINICAL HISTORY: near syncope COMPARISON STUDY: 12/01/2016 TECHNIQUE: Axial CT of the brain is performed from the vertex to the skull base. IV contrast was not administered for this examination. A dose lowering technique was utilized adhering to the principles of ALARA. CT DOSE: 651.12 mGy.cm FINDINGS: No intra or extra-axial mass lesions are visualized. There is no CT evidence of acute cortical infarction. There is no evidence of midline shift. There is no acute hemorrhage. No calvarial fractures are visualized. The previously identified isodense right subdural hematoma has resorbed. There are patchy white matter hypodensities likely on a small vessel basis. There is no evidence of pathologic ventricular dilatation. There is polypoid mucosal thickening within the right maxillary sinus. IMPRESSION: No acute intracranial findings Electronically signed by: Godwin Saavedra M.D. 12/10/2017 2:50 PM Dictated Date/Time: 12/10/2017 2:48 PM
--- NOTE | 2017-12-10 17:35 | DIAGNOSTIC IMAGING REPORT ---
MRI OF THE BRAIN WITHOUT CONTRAST CLINICAL HISTORY: Vertigo, near syncope, strokelike activity COMPARISON STUDY: Noncontrast head CT dated 12/10/2017, FINDINGS: Sagittal T1, axial diffusion, proton density and T2 weighted axial, coronal FLAIR, and axial T1-weighted images were acquired. No intra or extra-axial mass lesions are visualized Axial diffusion-weighted images reveal no evidence of acute or subacute infarction. There is mild particular dilatation, likely secondary to volume loss. Proton density T2-weighted and FLAIR images reveal scattered foci of increased T2 signal within the white matter, likely on a small vessel basis. 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 There are foci of increased T2 signal within the left mastoid likely inflammatory. IMPRESSION: 1. No acute intracranial findings 2. No evidence of intracranial mass 3. Atrophy and white matter disease 4. No evidence of acute or subacute infarction 5. Foci of increased T2 signal within the left mastoid likely inflammatory Electronically signed by: Godwin Saavedra M.D. 12/10/2017 5:33 PM Dictated Date/Time: 12/10/2017 5:31 PM
[2017-12-10 18:27] VITALS: BP 148/66; PULSE 58; O2SAT 97
== END 2017-12-10 18:36 | disposition home or self-care (01) ==
LOC: EDBD 12:34 → C.EDA 12:35
DX: R55 Syncope and collapse (principal); E86.0 Dehydration; J43.9 Emphysema, unspecified; Z87.891 Personal history of nicotine dependence; Z79.899 Other long term (current) drug therapy; Z88.0 Allergy status to penicillin

== ENCOUNTER → 2017-12-19 | Outpatient (CLI) | payer MEDICARE ==
[~2017-12-19] MED LIST changes: -CLC150 PO; +FURO-85 PO; +FURO20TA PO; -LCTX PO; -LVQ750 PO; -PRT40 PO; -TYL325X PO
== END | disposition home or self-care (01) ==
LOC: C.LABSPEC 16:39
PROVIDERS: ATTEND Nurse Practitioner Adult Health
DX: R35.0 Frequency of micturition (principal); R39.198 Other difficulties with micturition; R32 Unspecified urinary incontinence; R39.15 Urgency of urination

== ENCOUNTER → 2018-01-08 | Day surgery (SDC) | payer MEDICARE ==
[2018-01-07 15:01] VITALS: Ht 185.4 cm; Wt 78.2 kg
[~2018-01-08] VITALS: Ht 185.4 cm; Wt 78.2 kg
[~2018-01-08] MED LIST changes: +ASPCH81X PO; +BRIMONIDINE TARTRATE 0.2% 5ML OPR SCH; -FURO20TA PO; +MISCCAP80 PO; +PILOCARPINE HCL 2% OP SOLN 15 ML BTL OPR SCH; +PROPARACAINE 0.5% OP SOLN PER DROP CHARGE OPR SCH; +PrednisoLONE ACET 1% OP SUSP 5 ML BTL OPR SCH
[2018-01-08 11:55] VITALS: BP 114/54; PULSE 54; O2SAT 99
--- NOTE | 2018-01-08 12:11 | Discharge Instructions-SurgCtr ---
Discharge Instructions Date of Service Jan 08, 2018. Visit Reason for Visit: Glaucoma Right Eye Discharge Discharge Diagnosis / Problem: Glaucoma, right eye Discharge Goals Goal(s): Improve disease control Activity Recommendations Activity Limitations: per Instructions/Follow-up section Anesthesia . Post Anesthesia Instructions: If you have had General Anesthesia or IV Sedation: * Do not drive today. * Resume driving when surgeon permits. * Do not make important decisions or sign legal documents today. * Call surgeon for: 1. Temperature elevations greater than 101 degrees F. 2. Uncontrollable pain. 3. Excessive bleeding. 4. Persistent nausea and vomiting. 5. Medication intolerance (nausea, vomiting or rash). * For nausea and vomiting use only clear liquids such as: tea, soda, bouillon until nausea subsides, then gradually increase diet as tolerated. * If you have any concerns or questions, call your surgeon's office. If physician is unavailable and it is an emergency, call 911 or go to the nearest emergency room. . Instructions / Follow-Up Instructions / Follow-Up ACTIVITY RECOMMENDATIONS: * No limitations RETURN TO SCHOOL/WORK: * No limitations DIET: * No limitations MEDICATIONS: Resume previous medications unless instructed otherwise by your surgeon. * Please use Prednisolone acetate drops 1 drop in effected eye 4 times a day for 5 days or Durezol drops 2 times a day for 5 days. * Continue all glaucoma drops as usual with no interruption to either eye. SPECIAL CARE INSTRUCTIONS: Call your doctor at with any concerns or problems. FOLLOW UP VISIT: Follow-up with Dr Kumar in 1 hour. Diet Recommendations Home Diet: resume previous diet Pending Studies Studies pending at discharge: no Medical Emergencies . Who to Call and When: Medical Emergencies: If at any time you feel your situation is an emergency, please call 911 immediately. . Non-Emergent Contact Non-Emergency issues call your: Consumer Science Teacher . . "Provider Documentation" section prepared by Chet Kumar. .
--- NOTE | 2018-01-08 12:12 | [facility] Operative Report ---
Operative Report Date of Service Jan 08, 2018. Operative Report Diagnosis: Glaucoma, right eye Procedure: SLT right eye, superior 180 degrees, 1.3mj, 68 spots Complications: none I attest to the content of the Intraoperative Record and any orders documented therein. Any exceptions are noted below.
== END | disposition home or self-care (01) ==
LOC: X.SURG 11:00
PROVIDERS: ATTEND Ophthalmology
DX: H40.1110 Primary open-angle glaucoma, right eye, stage unspecified (principal)

== ENCOUNTER → 2018-01-24 | Day surgery (SDC) | payer MEDICARE ==
[~2018-01-24] VITALS: Ht 185.4 cm; Wt 78.5 kg
[~2018-01-24] MED LIST changes: +ASCA500 PO; +B-COTAB18 PO; +BACITRACIN OINT 0.9 GM PKT ONE; -BRIMONIDINE TARTRATE 0.2% 5ML OPR SCH; +CHOL1000 PO; +CLINDAMYCIN 600 MG/54 ML D5W 54 ML IV SCH; +FLAX12003 PO; +LACTATED RINGER'S 1000ML 1,000 ML IV SCH; +LIDOCAINE HCL 1% 20 ML VIAL ONE; +MAGNESIUM OTC PO; +MENA1CAP PO; +MULT-513 PO; +NAPR1TAB9 PO; +NUTR1000 PO; -PILOCARPINE HCL 2% OP SOLN 15 ML BTL OPR SCH; +PROP10TA7 PO; -PROPARACAINE 0.5% OP SOLN PER DROP CHARGE OPR SCH; -PrednisoLONE ACET 1% OP SUSP 5 ML BTL OPR SCH; +TURM500C2 PO; +VITACAP37 PO; +ZINC50CA3 PO; +alpha-lipoic acid PO; +cranberry PO; +potassium OTC PO
[2018-01-24 08:26] VITALS: BP 123/60; PULSE 47; TEMP 36.6; O2SAT 97; Ht 185.4 cm; Wt 78.5 kg
--- NOTE | 2018-01-24 09:13 | History & Physical Bridge Note ---
H&P Re-Evaluation Bridge Note: I have examined the patient, reviewed the History & Physical and in the interval since the performance of the History & Physical I have noted the following changes of clinical significance: No changes noted. I reviewed the indications, procedure, risks and alternatives of loop recorder implantation with him and his daughter who was present and they understand and he agrees to proceed. Consent obtained. He is not sure if he wants sedation, I reviewed the risks of sedation with him and he has signed consent.
--- NOTE | 2018-01-24 09:14 | Pre Sedation Assessment ---
Pre Sedation Assessment General Date of Sedation: Jan 24, 2018. Vital Signs Past 12 Hours Date Time Temp Pulse Resp B/P (MAP) Pulse Ox O2 Delivery O2 Flow Rate FiO2 01/24/18 08:26 36.6 47 20 123/60 (81) 97 Room Air Review Cardiovascular: regular rate, rhythm Lungs: lungs clear Pre-Sedation Airway Assessment Smoking Status: Former Smoker Hx of Sleep Apnea: No Hx of difficult intubation: No Short Thick Neck: No Thyro-mental Distance: > 3 Finger Breadths Oral Cavity: Capped Teeth Mallampati Classification: Class II ASA Classification: Class II NPO Status Date of Last Intake of Fluids: Jan 23, 2018 Time of Last Intake of Fluids: 1900 Date of Last Intake of Solids: Jan 23, 2018 Time of Last Intake of Solids: 1800 Procedure Planning Contraindications for Sedation: None Current Medications Reviewed: Yes Notes The planned sedation has been discussed with the patient. Informed Consent was obtained. I have identified the patient, determined the appropriateness of sedation and have assessed the patient immediately prior to the procedure. All medicine(s) and interventions are by my order.
--- NOTE | 2018-01-24 09:54 | [facility] Operative Report ---
Operative Report Operative Date Jan 24, 2018. Pre-Operative Diagnosis Syncope Post-Operative Diagnosis Same Procedure(s) Performed Loop recorder implantation Surgeon Dr. Jorgensen Fiscal Officer Surgeon(s) None Estimated Blood Loss 2 cc Findings Good device position Specimens None Anesthesia Local, no sedation Complication(s) None Disposition [facility] Description of Procedure After obtaining informed consent for the procedure, the patient was brought to the laboratory having had nothing by mouth after midnight. The patient was prepped and draped in the standard sterile manner for a loop recorder implantation. An area at the fourth left intercostal space and 1 cm left of the left sternal border was infiltrated with 1% lidocaine local anesthetic and a 0.5 cm incision was made through the skin. Using the loop recorder insertion tool the loop recorder was inserted through the incision at a 45 downward and leftward angle. The incision was closed with a subcutaneous continuous closure of 4-0 Vicryl followed by a running subcuticular skin closure of 4-0 Vicryl. Bacitracin ointment was placed on the incision. A dressing was applied. I attest to the content of the Intraoperative Record and any orders documented therein. Any exceptions are noted below.
[2018-01-24 09:57] VITALS: BP 140/61; PULSE 40; TEMP 36.6; O2SAT 99
[2018-01-24 10:16] VITALS: BP 149/64; PULSE 49; O2SAT 100
--- NOTE | 2018-01-24 10:21 | Discharge Instructions ---
Discharge Instructions Date of Service Jan 24, 2018. Admission Reason for Admission: Syncope Discharge Discharge Diagnosis / Problem: Loop recorder implantation Discharge Goals Goal(s): Diagnostic testing Activity Recommendations Activity Limitations: resume your previous activity . Instructions / Follow-Up Instructions / Follow-Up ACTIVITY RECOMMENDATIONS: * Do not raise affected arm over head for 2 weeks. SPECIAL CARE INSTRUCTIONS: * If bleeding occurs, apply direct pressure to area for 5 minutes. * Call your doctor if you have severe pain, fever, drainage or bleeding at site. * Keep dressing on and dry. * Keep any scheduled doctor's appointment, including with Dr. Wilson. * Implant Card - hand held device with website information given. SKIN IRRITATION: * You may experience some redness and/or swelling in the area where radiation was administered. If any skin irritation occurs, please contact your family physician. FOLLOW UP VISIT: Dr. Jorgensen Thursday, January 25, 2018, 10:00 AM. Current Hospital Diet Patient's current hospital diet: Discharge Diet Recommended Diet: AHA Diet (Heart Healthy) Pending Studies Studies pending at discharge: no Medical Emergencies . Who to Call and When: Medical Emergencies: If at any time you feel your situation is an emergency, please call 911 immediately. . Non-Emergent Contact Non-Emergency issues call your: Primary Care Provider . . "Provider Documentation" section prepared by Cezar Jorgensen. .
[2018-01-24 10:30] VITALS: BP 137/77; PULSE 45; TEMP 36.4; O2SAT 100
== END | disposition home or self-care (01) ==
LOC: C.ACU 07:30
PROVIDERS: ATTEND Internal Medicine Cardiovascular Disease
DX: R55 Syncope and collapse (principal); Z87.01 Personal history of pneumonia (recurrent); Z85.46 Personal history of malignant neoplasm of prostate; G62.9 Polyneuropathy, unspecified; R26.9 Unspecified abnormalities of gait and mobility; Z87.891 Personal history of nicotine dependence; Z88.0 Allergy status to penicillin

== ENCOUNTER 2018-06-09 11:19 | Emergency (ER) | payer MEDICARE ==
[~2018-06-09] VITALS: Ht 188 cm; Wt 94.1 kg
[~2018-06-09 11:19] MED LIST changes: -BACITRACIN OINT 0.9 GM PKT ONE; -CLINDAMYCIN 600 MG/54 ML D5W 54 ML IV SCH; -LACTATED RINGER'S 1000ML 1,000 ML IV SCH; -LIDOCAINE HCL 1% 20 ML VIAL ONE
[2018-06-09 11:35] VITALS: TEMP 36.6; Ht 188 cm; Wt 94.1 kg
[2018-06-09 11:37] VITALS: O2SAT 98
[2018-06-09] MEDS ORDERED: SODIUM CHLORIDE 0.9% 250ML 250 ML IV STA (11:43)
[2018-06-09 12:10] LABS: BASO % 0.5 %; BASO ABS # 0.04 K/uL (0-0.2); EOS % 3.6 %; EOS ABS # 0.31 K/uL (0-0.5); HEMATOCRIT 35.6 % (42-52); HEMOGLOBIN 11.7 g/dL (14.0-18.0); IG# 0.03 K/uL (0.00-0.02); LYMPH ABS # 1.04 K/uL (1.2-3.4); MEAN CELL VOLUME 94.4 fL (80-100); MEAN CORPUSCULAR HGB CONC 32.9 g/dl (32-36); MEAN PLATELET VOLUME 9.3 fL (7.4-10.4); MONO % 9.5 %; MONO ABS # 0.83 K/uL (0.11-0.59); NEUT % 74.1 %; NEUT ABS # 6.45 K/uL (1.4-6.5); PLATELET COUNT 191 K/uL (130-400); RED CELL DISTRIBUTION WIDTH CV 14.2 % (11.5-14.5)
[2018-06-09 12:19] LABS: PTT PATIENT 23.1 SECONDS (21.0-31.0)
[2018-06-09 12:29] LABS: ALBUMIN 3.7 gm/dl (3.4-5.0); CALCIUM 8.6 mg/dl (8.5-10.1); CREATININE 1.3 mg/dl (0.60-1.40); POTASSIUM 4.6 mmol/L (3.5-5.1)
[2018-06-09 12:34] LABS: CKMB 4.2 ng/ml (0.5-3.6); TOTAL PROTEIN 7.3 gm/dl (6.4-8.2)
--- NOTE | 2018-06-09 12:41 | DIAGNOSTIC IMAGING REPORT ---
HEAD WITHOUT CONTRAST (CT) CLINICAL HISTORY: 88 years-old Male with EVALUATE ALTERED MENTAL STATUS/WEAKNESS. Acutely altered mental status with weakness TECHNIQUE: Multiple axial CT images of the head were obtained without contrast. A dose lowering technique was utilized adhering to the principles of ALARA. CT DOSE: 580.48 mGy.cm COMPARISON: Head CT and brain MRI 12/10/2017,. FINDINGS: No acute intracranial hemorrhage, midline shift, intracranial mass, hydrocephalus, territorial ischemia or abnormal extra-axial collection. Age related atrophy with ex vacuo ventriculomegaly. Ill-defined patchy areas of low-attenuation about the white matter compatible with chronic microvascular ischemic changes. 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 The calvarium is intact. Mastoid air cells and middle ear cavities are clear. Mild mucosal thickening of the bilateral maxillary sinuses. Soft tissues are unremarkable. Postoperative changes about the right globe. IMPRESSION: No acute intracranial abnormality. The above report was generated using voice recognition software. It may contain grammatical, syntax or spelling errors. Electronically signed by: Kuldeep Richardson M.D. 06/09/2018 12:39 PM Dictated Date/Time: 06/09/2018 12:36 PM
--- NOTE | 2018-06-09 12:56 | DIAGNOSTIC IMAGING REPORT ---
CHEST ONE VIEW PORTABLE HISTORY: 88 years-old Male EVALUATE ALTERED MENTAL STATUS/WEAKNESS acute weakness with altered mental status COMPARISON: Chest radiograph 12/10/2017, CT chest 11/28/2016. TECHNIQUE: Portable AP view the chest FINDINGS: Patient is mildly rotated. Cardiac silhouette is upper limits of normal in size. Loop recorder device projects over the left heart border. Calcification of the aorta. No pneumothorax or large pleural effusion. Hyperinflated lungs with subsegmental bibasilar opacities suggesting scarring/atelectasis. Degenerative changes of the shoulders and spine. IMPRESSION: Emphysema without acute process. The above report was generated using voice recognition software. It may contain grammatical, syntax or spelling errors. Electronically signed by: Kuldeep Richardson M.D. 06/09/2018 12:54 PM Dictated Date/Time: 06/09/2018 12:53 PM
--- NOTE | 2018-06-09 14:27 | EMERGENCY ROOM VISIT NOTE ---
History Report prepared by Eri: Saadia Osorio Under the Supervision of: Dr. Aki Nuñez D.O. First contact with patient: 11:33 Chief Complaint: FALL Stated Complaint: FALL History of Present Illness The patient is a 88 year old male who presents to the Emergency Room with complaints of an episode of a fall beginning about 3 hours ago. The patient notes he became dizzy, and was lowering himself to the floor, when he fell and hit his head. He states he is unsure if he lost consciousness, and says he may have. The patient denies any injuries aside from a cut to his head. Nursing staff reports the patient lives in independent living at [facility]. The patient notes he recently had a new [employer] pacemaker placed by Dr. Johnson, [employer] customer support associate, a few months ago. He reports he has been eating and drinking as usual. The patient's son notes the patient is unsteady on his feet and needs a walker, and had a significant fall about a year ago. Source of History: patient, family (son), nursing staff Onset: 3 hours ago Position: other Quality: other (fall) Timing: other (episode) Associated Symptoms: + LOC (possibly) Note: Associated symptom: dizziness, cut to forehead Review of Systems See HPI for pertinent positives & negatives. A total of 10 systems reviewed and were otherwise negative. Past Medical & Surgical Medical Problems: (1) Emphysema lung Family History No pertinent family history Social History Smoking Status: Former Smoker Alcohol Use: none Drug Use: none Marital Status: Housing Status: lives with family Occupation Status: retired Current/Historical Medications Scheduled Ascorbic Acid (Vitamin C), 1 TAB PO DAILY Aspirin (Aspirin Chewable), 81 MG PO QAM B-Complex Vitamins (Vitamin B Complex), 1 TAB PO DAILY Cholecalciferol (Vitamin D3), 1 TAB PO DAILY Flaxseed (Linseed) (Flaxseed Oil), 1 CAP PO DAILY Furosemide (Lasix), 20 MG PO QAM Menaquinone-7 (Vitamin K2), 1 CAP PO DAILY Multivitamins/Minerals (Mvi With Minerals), 1 TAB PO DAILY Nutritional Supplements (Pulteney Oil), 1 CAP PO DAILY Probiotic Product (Probiotic), 1 CAP PO DAILY Propranolol (Inderal), 10 MG PO TID Tamsulosin Hcl (Flomax), 0.4 MG PO HS Turmeric (Curcuma Longa) (Curcumin 95), 1 CAP PO DAILY Vitamin E (E-400), 1 CAP PO DAILY [alpha-lipoic acid], 1 TAB PO DAILY [cranberry], 1,000 MG PO DAILY [magnesium OTC], 99 MG PO DAILY [potassium OTC], 99 MG PO DAILY Scheduled PRN Naproxen (Aleve), 220 MG PO Q12 PRN for Pain Zinc Acetate (Oral) (Galzin), 1 CAP PO DAILY PRN for UNDECIDED Allergies Coded Allergies: Penicillins (Verified Allergy, Unknown, HIVES, 01/24/18) Physical Exam Vital Signs Date Time Temp Pulse Resp B/P (MAP) Pulse Ox O2 Delivery O2 Flow Rate FiO2 06/09/18 13:32 74 14 137/71 95 Room Air 06/09/18 12:12 75 06/09/18 12:04 75 23 143/65 94 Room Air 06/09/18 12:01 70 137/67 75 140/74 77 143/65 06/09/18 11:37 98 Room Air 06/09/18 11:35 36.6 69 13 116/98 97 Room Air Physical Exam CONSTITUTIONAL/VITAL SIGNS: Reviewed / noted above. GENERAL: Non-toxic in appearance. INTEGUMENTARY: Warm, dry, and [place]. HEAD: Normocephalic. Abrasion to L forehead. EYES: without scleral icterus or trauma. ENT/OROPHARYNX: clear and moist. LYMPHADENOPATHY/NECK: Is supple without lymphadenopathy or meningismus. RESPIRATORY: Lungs clear and equal. CARDIOVASCULAR: Regular rate and rhythm. GI/ABDOMEN: Soft and nontender. No organomegaly or pulsatile mass. No rebound or guarding. Normal bowel sounds. EXTREMITIES: Warm and well perfused. Minimal discomfort with range of motion of L shoulder BACK: No CVA tenderness. NEUROLOGICAL: Intact without focal deficits. PSYCHIATRIC: normal affect. MUSCULOSKELETAL: Normally developed with good muscle tone. Medical Decision & Procedures ER Provider Diagnostic Interpretation: Radiology results as stated below per my review and radiologist interpretation: HEAD WITHOUT CONTRAST (CT) CLINICAL HISTORY: 88 years-old Male with EVALUATE ALTERED MENTAL STATUS/WEAKNESS. Acutely altered mental status with weakness TECHNIQUE: Multiple axial CT images of the head were obtained without contrast. A dose lowering technique was utilized adhering to the principles of ALARA. CT DOSE: 580.48 mGy.cm COMPARISON: Head CT and brain MRI 12/10/2017,. FINDINGS: No acute intracranial hemorrhage, midline shift, intracranial mass, hydrocephalus, territorial ischemia or abnormal extra-axial collection. Age related atrophy with ex vacuo ventriculomegaly. Ill-defined patchy areas of low-attenuation about the white matter compatible with chronic microvascular ischemic changes. 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 The calvarium is intact. Mastoid air cells and middle ear cavities are clear. Mild mucosal thickening of the bilateral maxillary sinuses. Soft tissues are unremarkable. Postoperative changes about the right globe. IMPRESSION: No acute intracranial abnormality. The above report was generated using voice recognition software. It may contain grammatical, syntax or spelling errors. Electronically signed by: Kuldeep Richardson M.D. 06/09/2018 12:39 PM Dictated Date/Time: 06/09/2018 12:36 PM CHEST ONE VIEW PORTABLE HISTORY: 88 years-old Male EVALUATE ALTERED MENTAL STATUS/WEAKNESS acute weakness with altered mental status COMPARISON: Chest radiograph 12/10/2017, CT chest 11/28/2016. TECHNIQUE: Portable AP view the chest FINDINGS: Patient is mildly rotated. Cardiac silhouette is upper limits of normal in size. Loop recorder device projects over the left heart border. Calcification of the aorta. No pneumothorax or large pleural effusion. Hyperinflated lungs with subsegmental bibasilar opacities suggesting scarring/atelectasis. Degenerative changes of the shoulders and spine. IMPRESSION: Emphysema without acute process. The above report was generated using voice recognition software. It may contain grammatical, syntax or spelling errors. Electronically signed by: Kuldeep Richardson M.D. 06/09/2018 12:54 PM Dictated Date/Time: 06/09/2018 12:53 PM Laboratory Results 06/09/18 11:57 Red Blood Count 3.77, Mean Corpuscular Volume 94.4, Mean Corpuscular Hemoglobin 31.0, Mean Corpuscular Hemoglobin Concent 32.9, Mean Platelet Volume 9.3, Neutrophils (%) (Auto) 74.1, Lymphocytes (%) (Auto) 12.0, Monocytes (%) (Auto) 9.5, Eosinophils (%) (Auto) 3.6, Basophils (%) (Auto) 0.5, Neutrophils # (Auto) 6.45, Lymphocytes # (Auto) 1.04, Monocytes # (Auto) 0.83, Eosinophils # (Auto) 0.31, Basophils # (Auto) 0.04 06/09/18 11:57 Test 06/09/18 11:57 06/09/18 12:11 White Blood Count 8.70 K/uL (4.8-10.8) Red Blood Count 3.77 M/uL (4.7-6.1) Hemoglobin 11.7 g/dL (14.0-18.0) Hematocrit 35.6 % (42-52) Mean Corpuscular Volume 94.4 fL (80-100) Mean Corpuscular Hemoglobin 31.0 pg (25-34) Mean Corpuscular Hemoglobin Concent 32.9 g/dl (32-36) Platelet Count 191 K/uL (130-400) Mean Platelet Volume 9.3 fL (7.4-10.4) Neutrophils (%) (Auto) 74.1 % Lymphocytes (%) (Auto) 12.0 % Monocytes (%) (Auto) 9.5 % Eosinophils (%) (Auto) 3.6 % Basophils (%) (Auto) 0.5 % Neutrophils # (Auto) 6.45 K/uL (1.4-6.5) Lymphocytes # (Auto) 1.04 K/uL (1.2-3.4) Monocytes # (Auto) 0.83 K/uL (0.11-0.59) Eosinophils # (Auto) 0.31 K/uL (0-0.5) Basophils # (Auto) 0.04 K/uL (0-0.2) RDW Standard Deviation 49.0 fL (36.4-46.3) RDW Coefficient of Variation 14.2 % (11.5-14.5) Immature Granulocyte % (Auto) 0.3 % Immature Granulocyte # (Auto) 0.03 K/uL (0.00-0.02) Prothrombin Time 10.1 SECONDS (9.0-12.0) Prothromb Time International Ratio 1.0 (0.9-1.1) Activated Partial Thromboplast Time 23.1 SECONDS (21.0-31.0) Partial Thromboplastin Ratio 0.9 Anion Gap 9.0 mmol/L (3-11) Est Creatinine Clear Calc Drug Dose 46.6 ml/min Estimated GFR () 56.9 Estimated GFR (Non- 49.1 BUN/Creatinine Ratio 20.6 (10-20) Calcium Level 8.6 mg/dl (8.5-10.1) Magnesium Level 2.6 mg/dl (1.8-2.4) Total Bilirubin 0.6 mg/dl (0.2-1) Direct Bilirubin 0.2 mg/dl (0-0.2) Aspartate Amino Transf (AST/SGOT) 29 U/L (15-37) Alanine Aminotransferase (ALT/SGPT) 23 U/L (12-78) Alkaline Phosphatase 56 U/L (45-117) Total Creatine Kinase 116 U/L (39-308) Creatine Kinase MB 4.2 ng/ml (0.5-3.6) Creatine Kinase MB Ratio 3.6 (0-3.0) Troponin I 0.017 ng/ml (0-0.045) Total Protein 7.3 gm/dl (6.4-8.2) Albumin 3.7 gm/dl (3.4-5.0) Urine Color YELLOW Urine Appearance CLEAR (CLEAR) Urine pH 5.5 (4.5-7.5) Urine Specific Graham 1.010 (1.000-1.030) Urine Protein NEG (NEG) Urine Glucose (UA) NEG (NEG) Urine Ketones NEG (NEG) Urine Occult Blood NEG (NEG) Urine Nitrite NEG (NEG) Urine Bilirubin NEG (NEG) Urine Urobilinogen NEG (NEG) Urine Leukocyte Esterase NEG (NEG) Urine WBC (Auto) 1-5 /hpf (0-5) Urine RBC (Auto) 0-4 /hpf (0-4) Urine Hyaline Casts (Auto) 1-5 /lpf (0-5) Urine Epithelial Cells (Auto) 5-10 /lpf (0-5) Urine Bacteria (Auto) NEG (NEG) Laboratory results as stated above per my review. Medications Administered Medications (Trade) Dose Ordered Sig/Duke Route Start Time Stop Time Status Last Admin Dose Admin Sodium Chloride 250 ml @ 999 mls/hr Q16M STAT IV 06/09/18 11:43 06/09/18 11:58 DC 06/09/18 11:43 999 MLS/HR ECG Per My Interpretation Indication: syncope Rate (beats per minute): 70 Rhythm: other (paced ventricular rhythm ) Findings: no ectopy, other (no ST elevation) ED Course 1133: Previous medical records were reviewed. The patient was evaluated in room C10. A complete history and physical examination was performed. 1143: Sodium Chloride 250 ml @ 999 mls/hr IV 1358: On reevaluation, the patient is resting. I discussed the results and findings with the patient. He verbalized agreement of the treatment plan. The patient was discharged home. Medical Decision Differential includes acute coronary syndrome, myocardial infarction, CVA, TIA, anemia, infection, pneumonia, UTI, pyelonephritis, poor nutrition, dehydration, electrolyte disturbance,hypoglycemia. This is a 88-year-old male who presents to the ED with a chief complaint of a fall. The patient states that he got a little dizzy and he lowered himself to the ground but then fell, striking his head. He is unsure if he lost consciousness completely. He currently lives with the independent living at a local nursing facility. He was transported here by EMS. His physical exam reveals normal vital signs. He does have a recently implanted pacemaker. This pacemaker was interrogated and did not reveal any inadequate pacing. It appears to be pacing at least 80% of the time. The patient's exam reveals an abrasion to the left forehead area. A CT scan of the brain did not show acute process. Chest x-ray was negative for acute disease. EKG shows a paced ventricular rhythm at a rate of 70. CBC is unremarkable. BUN is 27. Urine did not show infection. The patient was fed. He was told the results. He is felt to be stable for discharge back to the nursing facility. Medication Reconcilliation Current Medication List: was personally reviewed by me Blood Pressure Screening Patient's blood pressure: Normal blood pressure Blood pressure disposition: Did not require urgent referral Impression Primary Impression: Fall Additional Impressions: Abrasion Near syncope Scribe Attestation The scribe's documentation has been prepared under my direction and personally reviewed by me in its entirety. I confirm that the note above accurately reflects all work, treatment, procedures, and medical decision making performed by me. Departure Information Dispostion Home / Self-Care Referrals Debora Briggs M.D. (PCP) Forms HOME CARE DOCUMENTATION FORM, IMPORTANT VISIT INFORMATION Patient Instructions My [facility] Additional Instructions Follow-up with your doctor for further care and evaluation in 1-2 days. Return to the emergency department for worsening or new symptoms or any concerns. You have been examined and treated today on an emergency basis only. This is not a substitute for, or an effort to provide, complete comprehensive medical care. It is impossible to recognize and treat all injuries or illnesses in a single emergency department visit. It is therefore important that you follow up closely with your doctor. Call as soon as possible for an appointment. Increase daily fluids. Problem Qualifiers
[2018-06-09 14:50] VITALS: BP 119/68; PULSE 72; O2SAT 96
== END 2018-06-09 14:51 | disposition home or self-care (01) ==
LOC: EDBD 11:19 → C.EDC 11:20
DX: S00.81XA Abrasion of other part of head, initial encounter (principal); W19.XXXA Unspecified fall, initial encounter; Y92.129 Unspecified place in nursing home as the place of occurrence of the external cause; R55 Syncope and collapse; Z95.0 Presence of cardiac pacemaker; Z79.82 Long term (current) use of aspirin; Z87.891 Personal history of nicotine dependence; Z88.0 Allergy status to penicillin

== ENCOUNTER 2019-04-21 14:23 | Observation (INO) ==
[2019-04-21] MEDS ORDERED: SODIUM CHLORIDE 0.9% 1000ML 1,000 ML IV ONE (14:51)
--- NOTE | 2019-04-21 15:18 | CT Scan Report ---
HEAD CT NONCONTRAST CT DOSE: 729.78 mGycm HISTORY: Intermittent confusion. Stroke evaluation TECHNIQUE: Multiaxial CT images of the head were performed without the use of intravenous contrast. A utomated exposure control was utilized for this study. A dose lowering technique was utilized adheri ng to the principles of ALARA. Comparison: Head CT 06/09/2018. Findings: Mild mucosal thickening within the right maxillary sinus and a small retention cyst within the left maxillary sinus. The mastoid air cells are clear. The calvarium and skull base are intact. T here is no mass, hematoma, midline shift, acute infarct. White matter hypodensity is nonspecific but suggestive of microvascular ischemic change. The ventricles and sulci demonstrate mild age-related in volutional changes. Postoperative changes within the right globe are again noted. Impression: No significant change compared to the prior study. No acute intracranial abnormality. Electronically signed by: Khanh Holbrook M.D. 04/21/2019 3:16 PM
[2019-04-21 15:30] LABS: Basophils # (auto) 0.04 K/uL (0-0.2); Basophils % (auto) 0.6 %; Eosinophils # (auto) 0.38 K/uL (0-0.5); Eosinophils % (auto) 5.4 %; Hematocrit (blood only) 33.1 % (42-52); Immature Granulocytes # (auto) 0.02 K/uL (0.00-0.02); Immature Granulocytes % (auto) 0.3 %; Lymphocytes # (auto) 1.49 K/uL (1.2-3.4); Mean Corpuscular Hgb Conc 33.2 g/dL (32-36); Mean Corpuscular Volume 94.6 fL (80-100); Monocytes # (auto) 0.95 K/uL (0.11-0.59); Monocytes % (auto) 13.4 %; Neutrophils # (auto) 4.21 K/uL (1.4-6.5); Neutrophils % (auto) 59.3 %; Platelet Count 173 K/uL (130-400); RDW Coefficient of Variation 14.5 % (11.5-14.5); White Blood Count 7.09 K/uL (4.8-10.8)
[2019-04-21 15:41] LABS: Partial Thromboplastin Ratio 0.9; Partial Thromboplastin Time 25.4 Seconds (21.0-31.0); Prothrombin Time 10.5 Seconds (9.0-12.0)
[2019-04-21] MEDS ORDERED: SODIUM CHLORIDE 0.9% 500 ML IV ONE (15:45)
[2019-04-21 15:47] LABS: Alanine Aminotransferase 21 U/L (12-78); Albumin Level 3.7 gm/dl (3.4-5.0); Aspartate Aminotransferase 21 U/L (15-37); BUN Creatinine Ratio 19.2 (10-20); Blood Urea Nitrogen 30 mg/dl (7-18); Calcium 9.1 mg/dl (8.5-10.1); Carbon Dioxide 29 mmol/L (21-32); Chloride 107 mmol/L (98-107); Creatinine Clr Calc Pharmacy 37.1 ml/min; Est GFR (African American) 46.3; Glucose 103 mg/dl (70-99); Magnesium 2.6 mg/dl (1.8-2.4); Potassium 4.1 mmol/L (3.5-5.1); Sodium 142 mmol/L (136-145)
[2019-04-21 15:51] LABS: Albumin Globulin Ratio 1.2 (0.9-2); Alkaline Phosphatase 54 U/L (45-117); Bilirubin,Total 0.6 mg/dl (0.2-1); Globulin 3.2 gm/dl (2.5-4.0); Total Protein 6.9 gm/dl (6.4-8.2); Troponin I < 0.015 ng/ml (0-0.045)
--- NOTE | 2019-04-21 16:03 | XRay Report ---
XR chest 1V portable CLINICAL HISTORY: Cerebrovascular accident. COMPARISON STUDY: Chest radiograph June 09, 2018. FINDINGS: Mild cardiomegaly is unchanged. There is no pneumothorax or pleural effusion. There is no e vidence for pulmonary edema or pneumonia. Mediastinal contours are stable. Electronic device projects over the left heart. IMPRESSION: No acute cardiopulmonary findings. Electronically signed by: Raymond Leon M.D. 04/21/2019 4:02 PM
[2019-04-21 16:28] LABS: Appearance Urine Clear (Clear); Bilirubin Urine Negative (Negative); Blood Urine Negative (Negative); Color Urine Yellow; Glucose Urine UA Negative (Negative); Ketones Urine Negative (Negative); Leukocyte Esterase Urine Negative (Negative); Nitrite Urine Negative (Negative); Protein Urine Negative (Negative); Specific Gravity Urine 1.016 (1.000-1.030); Urobilinogen Urine Negative (Negative)
--- NOTE | 2019-04-21 17:51 | Emergency Department Note ---
Entered by Lorie Molina acting as a scribe for Stevo Tavares DO History of Present Illness General Chief complaint: Confusion Stated complaint: CONFUSION, NOT MAKING SENSE, SENT BY DOC FOR CT Time Seen by Provider: 04/21/19 14:51 Source: patient and family Mode of arrival: ambulatory Limitations: no limitations History of Present Illness Onset (ago): hour(s) 2 Location: head Radiation: non-radiation Pain Consistency: + now resolved Maximum Pain Intensity: 0 Relieved By: + none Exacerbated By: + none Associated symptoms: no chest pain, no fever/chills, no nausea/vomiting and no weakness (or numbness in the arms or legs ) Treatments prior to arrival: none The patient is a 88-year-old male who presents to the ED with complaints of n eurologic symptoms. His daughter states the episode started around 1330 and lasted for about 10 minutes while at the PCPs office. Patient was evaluated by Debora butts for stroke work-up. It included nonsensical and garbled speech and confusion. He denies any new weakness or numbness in the arms or legs. The patient states he remembers the episode. He denies any chest pain, shortness of breath, nausea or vomiting. His daughter states he seems back to normal here in the ED. The patient does not take daily blood thinners. The daughter reports they were on there way to an appointment with the patients PCP when the episode occurred, so she told the doctor when they got there and she came out and referred him to the ED. patient has no other complaints at this time. Home Medications Home Medications Medication Instructions Recorded Confirmed Type Cuarcumin 95(Turmeric) 400 mg PO QAM 04/21/19 04/21/19 History Magnesium Otc 99mg 99 mg PO QAM 04/21/19 04/21/19 History Menaquinone-7 (Vit K2) 1 cap PO QAM 04/21/19 04/21/19 History alpha lipoic acid 100 mg PO QAM 04/21/19 04/21/19 History ascorbic acid (vitamin C) [Vitamin 500 mg PO QAM 04/21/19 04/21/19 History C] aspirin 81 mg PO QAM 04/21/19 04/21/19 History cholecalciferol (vitamin D3) 1,000 unit PO QAM 04/21/19 04/21/19 History [Vitamin D3] cranberry 1,000 mg PO QAM 04/21/19 04/21/19 History furosemide 20 mg PO QAM 04/21/19 04/21/19 History furosemide 40 mg PO 3XWK 04/21/19 04/21/19 History lactobacillus combination no.4 3,000 mmu cells PO QAM 04/21/19 04/21/19 History [Probiotic] naproxen sodium [Aleve] 220 mg PO Q12H PRN 04/21/19 04/21/19 History omega 1-pvh-aya-fish oil [[place]-3] 1 cap PO HS 04/21/19 04/21/19 History potassium 99 mg PO QAM 04/21/19 04/21/19 History propranolol 20 mg PO TID 04/21/19 04/21/19 History tamsulosin 0.4 mg PO HS 04/21/19 04/21/19 History vitamin B complex 1 tab PO QAM 04/21/19 04/21/19 History vitamin E 400 unit PO HS 04/21/19 04/21/19 History zinc acetate 25 mg PO QAM 04/21/19 04/21/19 History Allergies Allergy/AdvReac Type Severity Reaction Status Date / Time Penicillins Allergy Unknown HIVES Verified 04/21/19 15:14 Past Med/Surg History Medical History CHF (congestive heart failure) Social History Feels Safe at Home: Yes Smoking Status: Never smoker Review of Systems See HPI for pertinent positives & negatives. and A total of 10 systems reviewed and were otherwise negative Physical Exam Vital Signs Vital Signs - 24 hr 04/21/19 14:25 04/21/19 15:17 04/21/19 16:44 Temperature 36.7 C Temperature Source Oral Sepsis Recent Fever Within 48 Hours No Sepsis New/Unexplained Change in Mental Status No Sepsis Action Taken by Nursing No Action Required Pulse Rate 86 Pulse Rate [Apical] 76 75 Respiratory Rate 16 18 18 Blood Pressure 117/63 Blood Pressure [Right Arm] 128/62 131/66 Blood Pressure Mean 81 Blood Pressure Mean [Right Arm] 84 87 Pulse Oximetry 97 98 99 Oxygen Delivery Method Room Air Room Air Room Air GENERAL: Patient is sitting up in bed, alert, well appearing, well nourished, no distress, non-toxic EYE EXAM: normal conjunctiva, PERRL and EOM's intact OROPHARYNX: no exudate, no erythema, lips, buccal mucosa, and tongue normal and mucous membranes are moist NECK: supple, no nuchal rigidity, no adenopathy, non-tender LUNGS: Clear to auscultation. Normal chest wall mechanics HEART: no murmurs, S1 normal and S2 normal ABDOMEN: abdomen soft, non-tender, normo-active bowel sounds, no masses, no rebound or guarding. BACK: Back is symmetrical on inspection and there is no deformity, no midline tenderness, no CVA tenderness. SKIN: no rashes and no bruising UPPER EXTREMITIES: upper extremities are grossly normal. LOWER EXTREMITIES: No pitting edema. NEURO EXAM: Normal sensorium, cranial nerves II-XII intact, normal speech, no weakness of arms, no weakness of legs. No drift. Finger to nose intact. Gross sensation intact. Course ED COURSE: Vital signs were reviewed and showed normal vital signs. The patients medical record was reviewed The above diagnostic studies were performed and reviewed. ED treatments and interventions as stated above. 1445: The patient was evaluated in room A12B. A complete history and physical examination was performed. 1645: [facility] the [facility] The patient will be further evaluated. 1650: Upon reevaluation, the patient is resting comfortably. I discussed my findings with the patient and he understands and agrees with the treatment plan. Based on the patients age, coexisting illnesses, exam and lab findings the decision to treat as an [inpatient][outpatient] was made. The patient remained stable while under my care. The patient will be evaluated for further management. Consultations Consultation #1: I discussed the patients case with Dr. Santiago, [facility]. The patient will be further evaluated. Time: 16:45 Administered Medications Discontinued Medications Sodium Chloride (Nss 1000ml) 1,000 mls @ 999 mls/hr IV .Q1H1M ONE Stop: 04/21/19 15:51 Last Infusion: 04/21/19 16:14 Dose: 0 mls/hr Documented by: [id number] Admin: 04/21/19 15:23 Dose: 999 mls/hr Documented by: [id number] Sodium Chloride (Nss) 500 mls @ 999 mls/hr IV .Q31M ONE Stop: 04/21/19 16:15 Last Admin: 04/21/19 16:14 Dose: 999 mls/hr Documented by: [id number] Medical Decision Making Differential Diagnosis Differential Diagnosis includes but is not limited to ischemic Stroke, hem orrhagic stroke, bells palsy, mass, neoplasm, migraine headache, seizure, subarachnoid hemorrhage, TIA, and transient global amnesia. Medical Records Attestation: I reviewed the patient's medical records. Home Medications Current Medication List: was personally reviewed by me Laboratory Data Attestation: I reviewed the patient's lab results. Result diagrams: 04/21/19 15:18 04/21/19 15:18 Lab Results 04/21/19 04/21/19 04/21/19 Range/Units 14:10 15:18 15:18 WBC 7.09 (4.8-10.8) K/uL RBC 3.50 L (4.7-6.1) M/uL Hgb 11.0 L (14.0-18.0) g/dL Hct 33.1 L (42-52) % MCV 94.6 (80-100) fL MCH 31.4 (25-34) pg MCHC 33.2 (32-36) g/dL RDW Std Deviation 50.0 H (36.4-46.3) fL RDW Coeff of [place] 14.5 (11.5-14.5) % Plt Count 173 (130-400) K/uL MPV 9.0 (7.4-10.4) fL Immature Gran % (Auto) 0.3 % Neut % (Auto) 59.3 % Lymph % (Auto) 21.0 % [place] % (Auto) 13.4 % Eos % (Auto) 5.4 % Baso % (Auto) 0.6 % Immature Gran # (Auto) 0.02 (0.00-0.02) K/uL Neut # (Auto) 4.21 (1.4-6.5) K/uL Lymph # (Auto) 1.49 (1.2-3.4) K/uL Graves # (Auto) 0.95 H (0.11-0.59) K/uL Eos # (Auto) 0.38 (0-0.5) K/uL Baso # (Auto) 0.04 (0-0.2) K/uL PT 10.5 (9.0-12.0) Seconds INR 1.0 (0.9-1.1) APTT 25.4 (21.0-31.0) Seconds PTT Ratio 0.9 Sodium (136-145) mmol/L Potassium (3.5-5.1) mmol/L Chloride (98-107) mmol/L Carbon Dioxide (21-32) mmol/L Anion Gap (3-11) BUN (7-18) mg/dl Creatinine (0.6-1.4) mg/dl Est Cr Clr Drug Dosing ml/min Est GFR ( Amer) Est GFR (Non-Af Amer) BUN/Creatinine Ratio (10-20) Glucose (70-99) mg/dl Calcium (8.5-10.1) mg/dl Magnesium (1.8-2.4) mg/dl Total Bilirubin (0.2-1) mg/dl AST (15-37) U/L ALT (12-78) U/L Alkaline Phosphatase (45-117) U/L Troponin I (0-0.045) ng/ml Total Protein (6.4-8.2) gm/dl Albumin (3.4-5.0) gm/dl Globulin (2.5-4.0) gm/dl Albumin/Globulin Ratio (0.9-2) Urine Color Yellow Urine Appearance Clear (Clear) Urine pH 5.0 (4.5-7.5) Ur Specific [place] 1.016 (1.000-1.030) Urine Protein Negative (Negative) Urine Glucose (UA) Negative (Negative) Urine Ketones Negative (Negative) Urine Blood Negative (Negative) Urine Nitrite Negative (Negative) Urine Bilirubin Negative (Negative) Urine Urobilinogen Negative (Negative) Ur Leukocyte Esterase Negative (Negative) Blood Type Antibody Screen 04/21/19 04/21/19 Range/Units 15:18 15:18 WBC (4.8-10.8) K/uL RBC (4.7-6.1) M/uL Hgb (14.0-18.0) g/dL Hct (42-52) % MCV (80-100) fL MCH (25-34) pg MCHC (32-36) g/dL RDW Std Deviation (36.4-46.3) fL RDW Coeff of [place] (11.5-14.5) % Plt Count (130-400) K/uL MPV (7.4-10.4) fL Immature Gran % (Auto) % Neut % (Auto) % Lymph % (Auto) % Graves % (Auto) % Eos % (Auto) % Baso % (Auto) % Immature Gran # (Auto) (0.00-0.02) K/uL Neut # (Auto) (1.4-6.5) K/uL Lymph # (Auto) (1.2-3.4) K/uL [place] # (Auto) (0.11-0.59) K/uL Eos # (Auto) (0-0.5) K/uL Baso # (Auto) (0-0.2) K/uL PT (9.0-12.0) Seconds INR (0.9-1.1) APTT (21.0-31.0) Seconds PTT Ratio Sodium 142 (136-145) mmol/L Potassium 4.1 (3.5-5.1) mmol/L Chloride 107 (98-107) mmol/L Carbon Dioxide 29 (21-32) mmol/L Anion Gap 6.0 (3-11) BUN 30 H (7-18) mg/dl Creatinine 1.54 H (0.6-1.4) mg/dl Est Cr Clr Drug Dosing 37.1 ml/min Est GFR ( Amer) 46.3 Est GFR (Non-Af Amer) 40.0 BUN/Creatinine Ratio 19.2 (10-20) Glucose 103 H (70-99) mg/dl Calcium 9.1 (8.5-10.1) mg/dl Magnesium 2.6 H (1.8-2.4) mg/dl Total Bilirubin 0.6 (0.2-1) mg/dl AST 21 (15-37) U/L ALT 21 (12-78) U/L Alkaline Phosphatase 54 (45-117) U/L Troponin I < 0.015 (0-0.045) ng/ml Total Protein 6.9 (6.4-8.2) gm/dl Albumin 3.7 (3.4-5.0) gm/dl Globulin 3.2 (2.5-4.0) gm/dl Albumin/Globulin Ratio 1.2 (0.9-2) Urine Color Urine Appearance (Clear) Urine pH (4.5-7.5) Ur Specific [place] (1.000-1.030) Urine Protein (Negative) Urine Glucose (UA) (Negative) Urine Ketones (Negative) Urine Blood (Negative) Urine Nitrite (Negative) Urine Bilirubin (Negative) Urine Urobilinogen (Negative) Ur Leukocyte Esterase (Negative) Blood Type B Positive Antibody Screen NEGATIVE Imaging Data Radiologist's Impression: Radiology results as stated below per my review and the radiologist's interpretation: HEAD CT NONCONTRAST CT DOSE: 729.78 mGycm HISTORY: Intermittent confusion. Stroke evaluation TECHNIQUE: Multiaxial CT images of the head were performed without the use of intravenous contrast. Automated exposure control was utilized for this study. A dose lowering technique was utilized adhering to the principles of ALARA. Comparison: Head CT 06/09/2018. Findings: Mild mucosal thickening within the right maxillary sinus and a small retention cyst within the left maxillary sinus. The mastoid air cells are clear. The calvarium and skull base are intact. There is no mass, hematoma, midline shift, acute infarct. White matter hypodensity is nonspecific but suggestive of microvascular ischemic change. The ventricles and sulci demonstrate mild age- related involutional changes. Postoperative changes within the right globe are again noted. Impression: No significant change compared to the prior study. No acute intracranial abnormality. Electronically signed by: Khanh Holbrook M.D. 04/21/2019 3:16 PM XR chest 1V portable CLINICAL HISTORY: Cerebrovascular accident. COMPARISON STUDY: Chest radiograph June 09, 2018. FINDINGS: Mild cardiomegaly is unchanged. There is no pneumothorax or pleural effusion. There is no evidence for pulmonary edema or pneumonia. Mediastinal contours are stable. Electronic device projects over the left heart. IMPRESSION: No acute cardiopulmonary findings. Electronically signed by: Raymond Leon M.D. 04/21/2019 4:02 PM Blood Pressure Blood Pressure Findings: Normal blood pressure Blood Pressure Disposition: did not require urgent referral MDM Narrative Patient is an 88-year-old male who presents the ER for episode of confusion. Patient was referred in by the PCP at the time for stroke work-up. Upon presentation patient is completely back to baseline. He is neurologically intact. Labs were obtained and showed a mild anemia at 11. No significant leukocytosis. INR is unremarkable. BMP with a creatinine of 1.5. BUN was slightly elevated at 38 just and may be mild dehydration. Mild hypermagnesemia. LFTs bilirubin and troponin was unremarkable. UA was negative. CT of the head and chest x-ray were unremarkable as well. EKG shows no acute pathology. Patient family were updated at bedside. Discussed with the hospitalist patient will be observed overnight for further work-up of a possible TIA. Impression & Plan Altered mental status, Confusion, Hypermagnesemia, Anemia Discharge Plan Visit Data Chief Complaint: Confusion Stated Complaint: CONFUSION, NOT MAKING SENSE, SENT BY DOC FOR CT ED Provider: Stevo Tavares Discharge Problem: Altered mental status, Confusion, Hypermagnesemia, Anemia Patient Disposition: Being Evaluated by Hospitalist Forms Stand Alone Forms: [facility] Prescriptions Prescriptions: No Action zinc acetate 25 mg (zinc) Capsule 25 mg PO QAM RF: 0 aspirin 81 mg Tablet,Delayed Release (Dr/Ec) 81 mg PO QAM RF: 0 propranolol 10 mg tablet 20 mg PO TID RF: 0 potassium 99 mg Tablet 99 mg PO QAM RF: 0 ascorbic acid (vitamin C) [Vitamin C] 500 mg Tablet 500 mg PO QAM RF: 0 tamsulosin 0.4 mg capsule 0.4 mg PO HS RF: 0 naproxen sodium [Aleve] 220 mg Tablet 220 mg PO Q12H PRN (Reason: Pain) RF: 0 vitamin B complex Tablet 1 tab PO QAM RF: 0 furosemide 20 mg tablet 40 mg PO 3XWK RF: 0 furosemide 20 mg tablet 20 mg PO QAM RF: 0 vitamin E 400 unit Capsule 400 unit PO HS RF: 0 cranberry 500 mg Capsule 1,000 mg PO QAM RF: 0 cholecalciferol (vitamin D3) [Vitamin D3] 1,000 unit Tablet 1,000 unit PO QAM RF: 0 alpha lipoic acid 100 mg Capsule 100 mg PO QAM RF: 0 Probiotic 3 billion cell Capsule 3,000 mmu cells PO QAM RF: 0 [place]-3 350 mg-235 mg- 90 mg-597 mg Capsule,Delayed Release(Dr/Ec) 1 cap PO HS RF: 0 Cuarcumin 95(Turmeric) 400 mg PO QAM RF: 0 Magnesium Otc 99mg 99 mg PO QAM RF: 0 Menaquinone-7 (Vit K2) 1 cap PO QAM RF: 0 Referrals Referrals: Debora Briggs MD [Primary Care Provider] - The scribe's documentation has been prepared under my direction and personally reviewed by me in its entirety. I confirm that the note above accurately reflects all work, treatment, procedures, and medical decision making performed by me.
--- NOTE | 2019-04-21 18:46 | History & Physical Report ---
Date of Service April 21, 2019 Assessment & Plan (1) CHF (congestive heart failure): Kel is an 88-year-old male with a past medical history of CHF, radiation neuropathy, essential tremor, emphysema, and one episode of TIA 20 years ago who presents with an acute episode of confusion that lasted at least 10 minutes in which resolved by time of admission to the ED concerning for transient ischemic attack. He had been off of aspirin therapy for 2 months. Altered mental status suspect 2/2 TIA No new focal neurologic deficits. Mild increased speech latency, otherwise answers all questions appropriately with cognition intact CTH with no acute findings. Evidence of chronic microvascular ischemic change. Suspect TIA in the setting of stopping aspirin 2 months ago before having a Botox prostate injection. Fasting lipid panel Carotid Doppler Echocardiogram (TTE) Consult neurology Resume aspirin therapy Admit for further evaluation Negative checks x-ray, negative UA on admission. No leukocytosis. Abcd2 score of 4 Congestive heart failure EKG shows ventricular paced rhythm Troponin negative No JVD, no evidence of heart failure exacerbation Echo as above Continue propranolol 20 mg p.o. 3 times daily SABRINA versus prerenal azotemia Creatinine elevated to 1.54 with BUN/creatinine ratio 19.2 Baseline creatinine appears to be approximately 1.3 Encourage oral hydration BMP daily Renally dose meds as appropriate Radiation neuropathy Chronic bilateral foot drop PT/OT consult, weightbearing as tolerated Pain well controlled BPH with bladder spasms/incontinence Continue tamsulosin 0.4 mg p.o. 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 He reports he was in his normal state of health until approximately noon1:00 today when he "had an episode". He reports he left his house and could not remember why he was outside or where he was going. He reports his daughter Valarie found him at home. When she found him he seemed to be "speaking gibberish "and made no sense. She got him in the car but notes the episode resolved after approximately 10 minutes. Because she found him during the episode she cannot say how long his symptoms lasted. He did not have any falls, loss of consciousness, focal weakness, shortness of breath, chest pain, chest pressure, palpitations with this episode. No visual changes or diplopia. He denies fever, chills, dysuria, cough, sputum production recently. 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 He notes he also has chronic hematuria with no recent exacerbation. He reports he has not had any symptoms like this before. He has had an episode of syncope due to lightheadedness when standing, and he has had a "brain bleed "in the past. Reports he takes Lasix, propranolol, tamsulosin, vitamins, and Aleve at home. He reports he normally takes aspirin but has not taken this since the week before February 12. He notes he usually stops it 1 week prior to Botox injections for overactive bladder and then restarts it afterwards, however he did not restart it after his most recent injection. He has never been on Plavix before. He lives in [facility]. 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 Allergies Allergy/AdvReac Type Severity Reaction Status Date / Time Penicillins Allergy Unknown HIVES Verified 04/21/19 15:14 Home Medications Home Medications Medication Instructions Recorded Confirmed Type Cuarcumin 95(Turmeric) 400 mg PO QAM 04/21/19 04/21/19 History Magnesium Otc 99mg 99 mg PO QAM 04/21/19 04/21/19 History Menaquinone-7 (Vit K2) 1 cap PO QAM 04/21/19 04/21/19 History alpha lipoic acid 100 mg PO QAM 04/21/19 04/21/19 History ascorbic acid (vitamin C) [Vitamin 500 mg PO QAM 04/21/19 04/21/19 History C] aspirin 81 mg PO QAM 04/21/19 04/21/19 History cholecalciferol (vitamin D3) 1,000 unit PO QAM 04/21/19 04/21/19 History [Vitamin D3] cranberry 1,000 mg PO QAM 04/21/19 04/21/19 History furosemide 20 mg PO QAM 04/21/19 04/21/19 History furosemide 40 mg PO 3XWK 04/21/19 04/21/19 History lactobacillus combination no.4 3,000 mmu cells PO QAM 04/21/19 04/21/19 History [Probiotic] naproxen sodium [Aleve] 220 mg PO Q12H PRN 04/21/19 04/21/19 History omega 6-nkd-xhg-fish oil [[place]-3] 1 cap PO HS 04/21/19 04/21/19 History potassium 99 mg PO QAM 04/21/19 04/21/19 History propranolol 20 mg PO TID 04/21/19 04/21/19 History tamsulosin 0.4 mg PO HS 04/21/19 04/21/19 History vitamin B complex 1 tab PO QAM 04/21/19 04/21/19 History vitamin E 400 unit PO HS 04/21/19 04/21/19 History zinc acetate 25 mg PO QAM 04/21/19 04/21/19 History Past Med/Surg History Medical History CHF (congestive heart failure) Social History Feels Safe at Home: Yes Smoking Status: Never smoker Review of Systems Constitutional: no fever, no chills, no sweats, no fatigue and no malaise Eyes: no blind spots, no diplopia, no loss of peripheral vision, no photophobia, not seeing flashes, no spots in vision and no worsening vision Ear, Nose, Mouth, Throat: no ear pain, no ear discharge, no dizziness, no nasal congestion, no sore throat, no change in voice, no hoarseness and no dysphagia Respiratory: no cough, no chest congestion, no change in sputum, no dyspnea, no dyspnea on exertion, no pain on inspiration, no sputum production and no wheezing Cardiovascular: no chest pain, no chest pain at rest, no chest pain with activity, no radiating jaw, neck or arm pain, no dyspnea, no dyspnea at rest, no dyspnea on exertion, no orthopnea, no syncope and no edema Gastrointestinal: + fecal incontinence; no abdominal pain, no nausea, no vomiting, no constipation, no diarrhea/loose stools and no melena Genitourinary: + urinary incontinence; no dysuria, no difficulty urinating, no urinary frequency and no urinary hesitancy Musculoskeletal: no back pain, no neck pain, no stiffness and no myalgia Integumentary: no rash, no new lesions and no wounds Neurologic: + localized weakness (No new, chronic foot drop as noted in HPI), + numbness, + paresthesia, + tremor(s), + abnormal speech and + confusion; no unsteadiness, no falls, no generalized weakness, no tingling, no lack of coordination, no seizure-like activity, no dizziness, no syncope and no headache(s) Physical Exam Physical Exam: General: A&Ox3. NAD. Cooperative. Moderate increase in speech latency, but answers questions appropriately HEENT: Atraumatic, normocephalic. Pulm: Moderate air movement. Trace crackles in dependent lobes, otherwise CTAB A&P. -wheezes, -rales, -rhonchi. Symmetrical chest rise. No increase work of breathing. No respiratory distress. Cardiac: Heart sounds difficult to appreciate. RRR, -mrg. Radial pulses intact and symmetrical. No JVD. No carotid bruits appreciated. Abdominal: Nontender, nondistended, soft. BS present. Neuro: Moving all extremities equally. Elbow flexion/extension, wrist flexion/extension, power technician strength, interosseal strength, finger flexion/extension, shoulder flexion/extension/abduction/abduction, hip flexion intact with 5/5 strength bilaterally. Plantar flexion 5/5 bilaterally, dorsiflexion 2/5 bilaterally. No ankle clonus. Pupils equal and reactive to light and accommodation. No facial asymmetry. No dysarthria. Facial strength and sensation intact. Results & Data Vital Signs (Past 12 Hours) Vital Signs Temp Pulse Pulse Resp BP BP Pulse Ox 04/21/19 16:44 75 18 131/66 99 04/21/19 15:17 76 18 128/62 98 04/21/19 14:25 36.7 C 86 16 117/63 97 Supervising Physician Co-Signing Physician Notes I personally examined the patient and verified all little points of history and exam, discussed case, and agree with decision making with Dr Malagon. Transient slurred speech. No focal numbness or weakness that he is aware of. Feeling better now. Vitals noted, in general he is awake and alert pleasant no distress. HEENT normocephalic atraumatic mucous members moist. Breathing unlabored no accessory muscle use good effort. Skin shows no rashes no pallor or icterus. Neuro shows no focal deficits he has no focal motor deficits his speech is fluent and clear. Mental status shows overall good recent and remote recall except for a bit of confusion about his event. Slurred speechseems to fit the best with a TIA, most likely small vessel disease. He is normally supposed to be on aspirin, but he was never instructed to restart it after his last Botox injection. More than likely small vessel disease intracranially is culprit, check lipids A1c and follow blood pressure. Given his prior intracranial bleed, will definitely want to see lipid panel prior to considering initiation of statin. Resume his aspirin. Consult neurology as per stroke center guidelines. Check carotids, check echo, follow cardiac rhythms. CODE STATUSI discussed with the patient, and he noted that he dropped off an advanced directive during her prior admission, but does not relate what it said. In directed questioning he notes he would like to be a full code. PG Care Time/CCT Total # of Minutes Spent Total Time Spent with Patient: Total time spent is greater than 50% in coordination of care (as documented) at patient's floor/unit and/or counseling patient: Resident Activity Tracking Resident Involvement: Resident Care Provided Care Provided: Adult Hospital Medicine (1) Anemia Anemia type: unspecified type Qualified Code(s): D64.9 - Anemia, unspecified (2) Altered mental status Altered mental status type: unspecified Qualified Code(s): R41.82 - Altered mental status, unspecified
[2019-04-21] MEDS ORDERED: PHARMACIST DISCHARGE MED REC CONSULT PRN (19:52)
[2019-04-21] MEDS: PROPRANOLOL HCL 10 MG TAB PO SCH (20:47)
[2019-04-21] MEDS: ASPIRIN 81 MG ECTAB PO SCH (20:47)
[2019-04-21] MEDS ORDERED: TAMSULOSIN HCL 0.4 MG CAP PO SCH (21:00)
[2019-04-22 06:37] LABS: Estimated Average Glucose 114 mg/dl; Hemoglobin A1C 5.6 % (4.5-5.6)
[2019-04-22 06:42] LABS: Basophils # (auto) 0.03 K/uL (0-0.2); Basophils % (auto) 0.4 %; Eosinophils # (auto) 0.38 K/uL (0-0.5); Eosinophils % (auto) 5.4 %; Hematocrit (blood only) 29.6 % (42-52); Hemoglobin 9.9 g/dL (14.0-18.0); Immature Granulocytes # (auto) 0.02 K/uL (0.00-0.02); Immature Granulocytes % (auto) 0.3 %; Lymphocytes # (auto) 1.32 K/uL (1.2-3.4); Lymphocytes % (auto) 18.7 %; Mean Corpuscular Hgb Conc 33.4 g/dL (32-36); Mean Corpuscular Volume 94.3 fL (80-100); Mean Platelet Volume 9.2 fL (7.4-10.4); Monocytes # (auto) 0.89 K/uL (0.11-0.59); Monocytes % (auto) 12.6 %; Neutrophils # (auto) 4.42 K/uL (1.4-6.5); Neutrophils % (auto) 62.6 %; Platelet Count 160 K/uL (130-400); RDW Coefficient of Variation 14.4 % (11.5-14.5); RDW Standard Deviation 49.7 fL (36.4-46.3); Red Blood Count 3.14 M/uL (4.7-6.1); White Blood Count 7.06 K/uL (4.8-10.8)
[2019-04-22 07:00] LABS: BUN Creatinine Ratio 19.5 (10-20); Calcium 8.2 mg/dl (8.5-10.1); Creatinine Clr Calc Pharmacy 44.2 ml/min; Est GFR (African American) 53.4; Potassium 4.1 mmol/L (3.5-5.1)
--- NOTE | 2019-04-22 07:00 | Ultrasound Report ---
US carotid doppler BI CLINICAL HISTORY: 88 years-old Male presenting with TIA. TECHNIQUE: Real-time grayscale and color and spectral Doppler ultrasound imaging of the bilateral car otid arteries was performed. Stenosis measurements were based on NASCET-like criteria (distal lumen d iameter as the denominator for stenosis measurement). COMPARISON: None. FINDINGS: RIGHT: Common carotid artery (CCA): Atherosclerosis at the carotid bulb. Peak systolic velocity (PSV) 74 cm/ s. Internal carotid artery (ICA): Atherosclerosis of the proximal ICA. Possible spectral broadening in t he midportion. PSV 127 cm/s. End diastolic velocity (EDV) 43 cm/s. ICA/CCA (systolic) ratio: 1.7. External carotid artery (ECA): Patent. PSV 83 cm/s. LEFT: CCA: Atherosclerosis at the carotid bulb. PSV 77 cm/s. ICA: Atherosclerosis of the proximal ICA. PSV 96 cm/s. EDV 31 cm/s. ICA/CCA (systolic) ratio: 1.2. ECA: Patent. PSV 72 cm/s. Bilateral antegrade flow within the vertebral arteries. Blood pressure: Brachial: Right: 108/61 mmHg, Left: 113/71 mmHg. Reference ranges: Stenosis measurements are compared to reference velocity parameters by the Society of Radiologists in Ultrasound (SRU) consensus and Sonographic NASCET index (S-NASCET). * SRU Primary parameters: ICA PSV <125 cm/s = normal or less than 50% stenosis; ICA PSV 125-230 cm/s = 50-69% stenosis; ICA PSV >230 cm/s = greater than or equal to 70% stenosis. * SRU Additional parameters: ICA/CCA PSV ratio <2 = normal or less than 50% stenosis; ratio 2-4 = 5 0-69% stenosis; ratio >4 = greater than or equal to 70% stenosis. ICA EDV <40 cm/s = normal or less t bernard 50% stenosis; ICA EDV 40-100 cm/s = 50-69% stenosis; ICA EDV >100 cm/s = greater than or equal to 70% stenosis. * S-NASCET parameters: Deceleration spectral broadening + PSV <125 cm/s = less than 50% stenosis; pa nsystolic spectral broadening + PSV <125 cm/s = 16-49% stenosis; pansystolic spectral broadening + PS V >125 cm/s + EDV <110 cm/s or ICA/CCA PSV ratio 2-4 = 50-69% stenosis; pansystolic spectral broadeni ng + PSV >270 cm/s OR EDV >110 cm/s OR ICA/CCA PSV ratio >4 = 70-79% stenosis; EDV >140 cm/s = 80-99% stenosis. IMPRESSION: 1. Atherosclerosis of the bilateral carotid bulbs and internal carotid arteries. Up to 50-69% stenos is of the proximal to mid right internal carotid artery. Electronically signed by: Koffi Hernandez M.D. 04/22/2019 6:58 AM
[2019-04-22] MEDS ORDERED: PERFLUTREN LIPID MICROSPHERE (DEFINITY) IV ONE (07:38)
[2019-04-22] MEDS: ASPIRIN 81 MG ECTAB PO SCH (08:18)
[2019-04-22] MEDS: PROPRANOLOL HCL 10 MG TAB PO SCH ×2 (08:18→14:09)
[2019-04-22] MEDS ORDERED: VITAMIN B COMPLEX TAB PO SCH (09:00)
[2019-04-22] MEDS ORDERED: FUROSEMIDE 20 MG TAB PO SCH (09:00)
[2019-04-22] MEDS ORDERED: NON-FORMULARY MEDICATION (Alpha Lipoic Acid 100 MG) PO SCH (09:00)
[2019-04-22] MEDS ORDERED: CHOLECALCIFEROL 1,000 UNITS TAB PO SCH (09:00)
[2019-04-22] MEDS ORDERED: LACTOBACILLUS ACIDOPHILUS (FLORANEX) TAB PO SCH (09:00)
[2019-04-22] MEDS ORDERED: POTASSIUM CHLORIDE 10 MEQ TABCR PO SCH (09:00)
[2019-04-22] MEDS ORDERED: ENOXAPARIN INJ 40 MG/0.4 ML SYR SQ SCH (09:00)
[2019-04-22] MEDS ORDERED: ASCORBIC ACID 500 MG TAB PO SCH (09:00)
[2019-04-22] MEDS ORDERED: CRANBERRY 1000 MG PO SCH (09:00)
--- NOTE | 2019-04-22 09:21 | Neurology Consultation ---
Date of Consultation April 22, 2019 Assessment & Plan (1) TIA (transient ischemic attack): Probable TIA occurring yesterday afternoon and characterized by transient confusion and speech disfluency with a duration of probably about 10 minutes, but resolving by the time the patient was evaluated in the emergency department. There was no associated weakness although the patient recalls having some difficulty opening the front door with his right hand at the time of the episode. Overall, the reported clinical symptoms would seem to localize to the left cerebral hemisphere. He does not have any focal or localizing neurological deficits at this time. I agree with aspirin 81 mg/day as ordered. Further, it would be reasonable to consider a statin in light of the moderate stenosis of the right internal carotid artery, even though his lipid panel is within normal limits. Would also recommend obtaining a CT angiogram of the head and neck and would also recommend a brain MRI, if able to do so in light of his cardiac pacer, to further exclude an acute infarct. Follow-up with results of echocardiogram. Case discussed with resident. As this patient does follow with Dr. Green periodically for his essential tremor and peripheral neuropathy as below, I recommended consulting with the [facility] neurology service during this patient's hospitalization for any additional follow-ups if necessary and for continuity of care upon discharge. (2) Peripheral neuropathy: Chronic peripheral neuropathy which has been felt to be related to patient's history of radiation treatments for prostate cancer nearly 20 years ago. He has chronic distal lower extremity weakness, sensory loss, and areflexia. He does not complain of significant neuropathic pain. No further specific recommendations at this time. Patient does follow with Dr. Green as a n outpatient and may continue to follow with him for ongoing monitoring of this issue. Present on Admission?: Yes (3) Essential tremor: Essential tremor. Chronic issue and characterized by bilateral upper extremity postural and action tremor, responding modestly to propranolol. No further specific recommendations at this time. This issue is also followed periodically by Dr. Green, [facility] neurology. Patient may continue to follow with Dr. Green for ongoing monitoring of this issue as well. Present on Admission?: Yes History of Present Illness Reason for Consultation: TIA Requesting Physician: Koffi Malagon MD Attending Physician: Stevo Caldera, History of Present Illness The patient is an 88-year-old right-handed male with a chief complaint of confusion that began acutely yesterday afternoon at home. He recalls that he was having some difficulty opening the front door of his house. After opening the door, he remembers standing outside and feeling modestly confused, as if he did not know what he was supposed to be doing. He reports that his daughter came to his assistance and noted that his speech seemed abnormal as if he was speaking gibberish. She subsequently brought him to his primary care physician for further assessment. The patient recalls meeting Dr. Briggs in the parking lot of her office. It sounds like she recommended that he be taken to the emergency department for more further evaluation at that time. The patient speech disturbance persisted for perhaps about 10 minutes although the exact duration is not entirely clear. He does not recall having any other associated symptoms such as weakness, vision change, or headache. Past medical history notable for a chronic peripheral neuropathy potentially related to remote radiation treatments for prostate cancer and characterized by bilateral distal lower extremity weakness, foot drop, and numbness. His history is also notable for a mild to moderate bilateral upper extremity action tremor for which she follows regularly with Dr. Green, [facility] neurology, and has been responding fairly well to propranolol. The patient reports that he has not had a recurrence of any focal or new neurological symptoms since his admission to the hospital. He admits that he does not have very good recollection of yesterday's acute episode and in fact does not specifically remember that his speech was abnormal or dysarthric at that time. Family history noncontributory. Of note, patient denies a family history of polyneuropathy or Vdpsbhx-Gghvp-Diqux disease. Allergies Allergy/AdvReac Type Severity Reaction Status Date / Time Penicillins Allergy Unknown HIVES Verified 04/21/19 15:14 Home Medications Home Medications Medication Instructions Recorded Confirmed Type Cuarcumin 95(Turmeric) 400 mg PO QAM 04/21/19 04/21/19 History Magnesium Otc 99mg 99 mg PO QAM 04/21/19 04/21/19 History Menaquinone-7 (Vit K2) 1 cap PO QAM 04/21/19 04/21/19 History alpha lipoic acid 100 mg PO QAM 04/21/19 04/21/19 History ascorbic acid (vitamin C) [Vitamin 500 mg PO QAM 04/21/19 04/21/19 History C] aspirin 81 mg PO QAM 04/21/19 04/21/19 History cholecalciferol (vitamin D3) 1,000 unit PO QAM 04/21/19 04/21/19 History [Vitamin D3] cranberry 1,000 mg PO QAM 04/21/19 04/21/19 History furosemide 20 mg PO QAM 04/21/19 04/21/19 History furosemide 40 mg PO 3XWK 04/21/19 04/21/19 History lactobacillus combination no.4 3,000 mmu cells PO QAM 04/21/19 04/21/19 History [Probiotic] naproxen sodium [Aleve] 220 mg PO Q12H PRN 04/21/19 04/21/19 History omega 0-fci-stu-fish oil [[place]-3] 1 cap PO HS 04/21/19 04/21/19 History potassium 99 mg PO QAM 04/21/19 04/21/19 History propranolol 20 mg PO TID 04/21/19 04/21/19 History tamsulosin 0.4 mg PO HS 04/21/19 04/21/19 History vitamin B complex 1 tab PO QAM 04/21/19 04/21/19 History vitamin E 400 unit PO HS 04/21/19 04/21/19 History zinc acetate 25 mg PO QAM 04/21/19 04/21/19 History Patient History Medical History CHF (congestive heart failure) Social History Preferred Language: [place]ian Communication Ability: Effective Manufacturer'S Representative Required: No Beliefs That Will Affect Care: None Current Living Situation: Spouse Feels Safe at Home: Yes Safety Concerns: Feels Safe At This Time Smoking Status: Never smoker Hx Alcohol Use: Yes Alcohol type: beer Hx Substance Use: No Review of Systems Constitutional: no fever and no chills Eyes: no blind spots and no diplopia Ear, Nose, Mouth, Throat: no tinnitus and no hearing loss Respiratory: no cough and no dyspnea Cardiovascular: no chest pain and no palpitations Gastrointestinal: no nausea and no vomiting Genitourinary: no dysuria and no hematuria Musculoskeletal: no myalgia Integumentary: no rash and no lesions Neurologic: as per Subjective / HPI Psychiatric: no depression and no anxiety Hematologic / Lymphatic: no easy bleeding Physical Exam Physical Exam: The patient is a well-developed, well-nourished elderly male. He is alert and fully oriented. Recent and remote memory intact. Attention and concentration normal. Patient exhibits a normal spontaneous speech pattern. He is able to name objects and repeat phrases. No problem with finger naming or calculations. Patient exhibits an age-appropriate fund of knowledge and normal comprehension of vocabulary. Visual de la torre full to confrontation. Visual acuity normal. Pupils equal round reactive to light and accommodation. Eye movements normal. There is no nystagmus. Facial sensation intact. There is no facial droop or weakness. Hearing intact. Palate elevates to midline. Shoulder shrug intact. Tongue protrudes to midline. There is a significant sensory deficit to light touch, temperature, and vibration for the distal lower extremities. Sensation for the upper limbs intact. Deep tendon reflexes are diffusely diminished, absent at the Achilles tendons bilaterally. Plantar responses silent bilaterally. There is no dysdiadochokinesia or dysmetria ibrtlk-xd-xkob or qwbc-sw-hlke bilaterally. Ophthalmoscopic examination reveals normal-appearing optic disks and posterior segments. No papilledema or hemorrhages. Carotid pulses normal bilaterally, no bruits to auscultation. Gait and station not tested due to safety concerns. Evaluation of muscle strength reveals generally intact strength for the arms and legs bilaterally. However, patient does have bilateral foot drops with ankle/foot dorsiflexion strength 0-1 out of 5 bilaterally, worse on the left. Muscle tone normal. No atrophy. Patient has a mild to moderate bilateral upper extremity postural and action tremor. No resting tremor. No rigidity or bradykinesia. Results & Data Vital Signs (Past 12 Hours) Vital Signs Temp Pulse Pulse Resp BP Pulse Ox 04/22/19 07:40 36.5 C 107 H 18 106/57 L 97 04/22/19 07:26 75 04/22/19 04:00 36.9 C 74 18 112/64 93 04/22/19 01:23 85 04/22/19 00:14 36.6 C 76 18 96/58 L 96 Laboratory Results Recently completed labs reviewed. WBC 7.06, hemoglobin 9.9, hematocrit 29.6, platelet count 160, sodium 142, potassium 4.1, BUN 27, creatinine 1.37, glucose 87, calcium 8.2, magnesium 2.6, lipid panel within normal limits. Diagnostic Findings A CT of the head completed yesterday is negative for hemorrhage or acute process. There is an element of generalized atrophy with prominent atrophy overlying the frontal lobes. Images and report reviewed. A carotid ultrasound reveals atherosclerosis of the bilateral carotid bulbs and internal carotid arteries with up to a 50 to 69% stenosis of the proximal to mid right internal carotid artery. Electrocardiogram reveals a ventricular paced rhythm with frequent premature ventricular complexes, 81 bpm
--- NOTE | 2019-04-22 14:35 | Discharge Summary ---
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 He reports he was in his normal state of health until approximately noon1:00 today when he "had an episode". He reports he left his house and could not remember why he was outside or where he was going. He reports his daughter Valarie found him at home. When she found him he seemed to be "speaking gibberish "and made no sense. She got him in the car but notes the episode resolved after approxim ately 10 minutes. Because she found him during the episode she cannot say how long his symptoms lasted. He did not have any falls, loss of consciousness, focal weakness, shortness of breath, chest pain, chest pressure, palpitations with this episode. No visual changes or diplopia. He denies fever, chills, dysuria, cough, sputum production recently. 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 He notes he also has chronic hematuria with no recent exacerbation. He reports he has not had any symptoms like this before. He has had an episode of syncope due to lightheadedness when standing, and he has had a "brain bleed "in the past. Reports he takes Lasix, propranolol, tamsulosin, vitamins, and Aleve at home. He reports he normally takes aspirin but has not taken this since the week before February 12. He notes he usually stops it 1 week prior to Botox injections for overactive bladder and then restarts it afterwards, however he did not restart it after his most recent injection. He has never been on Plavix before. He lives in [facility]. 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 Admission Exam Per Admitting Provider General: A&Ox3. NAD. Cooperative. Moderate increase in speech latency, but answers questions appropriately HEENT: Atraumatic, normocephalic. Pulm: Moderate air movement. Trace crackles in dependent lobes, otherwise CTAB A&P. -wheezes, -rales, -rhonchi. Symmetrical chest rise. No increase work of br eathing. No respiratory distress. Cardiac: Heart sounds difficult to appreciate. RRR, -mrg. Radial pulses intact and symmetrical. No JVD. No carotid bruits appreciated. Abdominal: Nontender, nondistended, soft. BS present. Neuro: Moving all extremities equally. Elbow flexion/extension, wrist flexion/extension, receivable executive strength, interosseal strength, finger flexion/extension, shoulder flexion/extension/abduction/abduction, hip flexion intact with 5/5 strength bilaterally. Plantar flexion 5/5 bilaterally, dorsiflexion 2/5 bilaterally. No ankle clonus. Pupils equal and reactive to light and accommodation. No facial asymmetry. No dysarthria. Facial strength and sensation intact. Principal Diagnosis TIA Discharge Exam General: A&Ox3. NAD. Cooperative. HEENT: Atraumatic, normocephalic. Pulm: Good air movement. Trace end expiratory wheeze in left upper lobe, otherwise CTAB A&P. -wheezes, -rales, -rhonchi. Symmetrical chest rise. No increased work of breathing. No respiratory distress. Cardiac: RRR, -mrg. Radial pulses intact and symmetrical. No JVD. No carotid bruits appreciated. Abdominal: Nontender, nondistended, soft. BS present. Neuro: Moving all extremities equally. Elbow flexion/extension, wrist flexion/extension, receivable executive strength, interosseal strength, finger flexion /extension, shoulder flexion/extension/abduction/abduction, hip flexion intact with 5/5 strength bilaterally. Plantar flexion 5/5 bilaterally, dorsiflexion 2/5 bilaterally. No ankle clonus. Pupils equal and reactive to light and accommodation. No facial asymmetry. No dysarthria. Facial strength and sensation intact. Discharge Data Allergies Allergy/AdvReac Type Severity Reaction Status Date / Time Penicillins Allergy Unknown HIVES Verified 04/21/19 15:14 Consultations 04/21/19 16:47 ED Decision to Admit Stat 04/21/19 19:52 Consult Case Management - Discharge Planning Routine Consult Neurology Routine Ordered Studies 04/21/19 14:52 CT head/brain wo con Stat 04/21/19 19:52 US carotid doppler BI Routine Hospital Course (1) TIA (transient ischemic attack): Kel is an 88-year-old male with a past medical history of CHF, radiation neuropathy, essential tremor, emphysema, and one episode of TIA 20 years ago who presented with an acute episode of confusion that lasted at least 10 minutes which resolved by time of admission to the ED in which was concerning for transient ischemic attack. He had been off aspirin therapy for 2 months prior to admission. To do as outpatient: 1. Routine follow-up 2. Revisit risks/benefits of initiating statin therapy 3. Follow-up on TTE results Altered mental status suspect 2/2 TIA Kel presented with an episode of confusion and dysarthria which resolved by arrival to the emergency department. His daughter found him at home and noted the episode lasted at least 10 minutes, but she is unsure how long he had been confused for prior to her seeing him. Kel had one episode of similar symptoms 20 years prior with no recent strokes or TIAs. He had been on aspirin low-dose therapy, however this was held in February 2019 for a Botox injection 2/2 spastic incontinence. He did not resume the aspirin following that procedure. On admission he was well oriented, had some increased speech latency but otherwise did not have appreciable dysarthria and answers questions appropriately. CThead showed no acute findings but was with evidence of chr onic microvascular ischemic change. Fasting lipid panel showed a normal total cholesterol but with an elevated LDL of 88 and low HDL. Carotid Dopplers showed a mid right internal carotid stenosis of approximately 50 to 70%. Echocardiogram showed no evidence of thrombus. Neurology was consulted for further recommendations. Kel has a past history of nontraumatic intracranial bleed. Given his history statin therapy was not initiated at time of admission as moderate dose statin would likely bring his LDL below 40. He will discuss this further as outpatient. He was discharged in good health at his normal strength and cognitive baseline. Congestive heart failure Kel has a past medical history of congestive heart failure. On admission his troponin was negative and his EKG showed a ventricular paced rhythm. He had no evidence of JVD, and no evidence of a heart failure exacerbation. His echocardiogram was pending at time of discharge. SABRINA versus prerenal azotemia On admission Kel was noted to have a creatinine elevated to 1.54 with a borderline BUN/creatinine ratio. His baseline creatinine appeared to be a proximally 1.3 his creatinine normalized the next day with oral hydration. 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 He has chronic bilateral foot drop. His pain was well controlled, and he did not experience an exacerbation of the symptoms during admission. (2) Peripheral neuropathy: (3) Essential tremor: Total Time Total Time Spent Total Time Spent (In Minutes): <30 Discharge Plan Discharge Items Patient Disposition: Home - Self-Care Reason For Visit: TIA Discharge Diagnosis: Transient ischemic attack (TIA) Discharge Goals: Improve disease control and Prevent disease Activity: Resume your previous activity Non-emergency contact: Primary Care Provider and Neurologist Call non-emergency contact if: you have any medication questions, your symptoms worsen, your pain is not controlled, your pain is worsening and you have a fever Follow-up/Referrals: Debora Briggs MD [Primary Care Provider] - 04/30/19 12:50 pm (Please, follow up at with Dr. Debora Briggs at [facility] in [address] of [facility] (THIS IS THE [facility] NEXT TO THIS [facility]) on SundayApril 30 at 12:50 pm. *If you need to change this appointment, call the office at [phone].) Driss Green MD [Physician] - 05/19/19 10:30 am (Please, follow up at Dr. Green's office on SundayMay 19 at 10:30 am. *If you need to change this appointment, call the office at [phone].) Diet: Regular Addtl Provider Instructions: You were seen in the hospital for an episode of confusion. Your confusion was suspicious for a transient ischemic attack (TIA) while not on aspirin therapy. Your head CT scan did not show any signs of a stroke. Your carotid Doppler study showed mild narrowing of your right carotid artery which was unlikely to have caused your symptoms. There were no signs of infection during admission. Please resume taking aspirin 81 mg daily when you return home. This medication is important for stroke prevention. If this is held for procedures in the future please make sure to discuss with your doctor when he or she would like you to resume it after the procedure. Please DO NOT take naproxen (Alieve) when you return home. This medication may increase your bleeding risk. You have not been started on any other medications at this time. Your primary care doctor or neurologist may discuss starting a medication called a statin with you in the future. An appointment has been made for you for follow-up with your primary care provider Dr. Briggs on 04/30/2019 at 12:50 PM. An appointment is being made for you for follow-up with your neurologist Dr. Green. You have a tentative appointment scheduled for 05/19/2019 at 10:30 AM, their office is working on moving this appointment up. You should receive a call to confirm this appointment. If you do not receive a call, or need to change your appointment, please call their office at [phone]. If you develop any new, worsening, or recurrent symptoms including chest pain, chest pressure, shortness of breath, difficulty breathing, sudden weakness, lightheadedness, dizziness, confusion, or difficulty speaking please contact your primary care provider at the number above, or call 911 for transport to the emergency department for reevaluation if you are concerned. Prescriptions: Continued zinc acetate 25 mg (zinc) Capsule 25 mg PO QAM RF: 0 aspirin 81 mg Tablet,Delayed Release (Dr/Ec) 81 mg PO QAM RF: 0 propranolol 10 mg tablet 20 mg PO TID RF: 0 potassium 99 mg Tablet 99 mg PO QAM RF: 0 ascorbic acid (vitamin C) [Vitamin C] 500 mg Tablet 500 mg PO QAM RF: 0 tamsulosin 0.4 mg capsule 0.4 mg PO HS RF: 0 vitamin B complex Tablet 1 tab PO QAM RF: 0 furosemide 20 mg tablet 40 mg PO 3XWK RF: 0 furosemide 20 mg tablet 20 mg PO QAM RF: 0 vitamin E 400 unit Capsule 400 unit PO HS RF: 0 cranberry 500 mg Capsule 1,000 mg PO QAM RF: 0 cholecalciferol (vitamin D3) [Vitamin D3] 1,000 unit Tablet 1,000 unit PO QAM RF: 0 alpha lipoic acid 100 mg Capsule 100 mg PO QAM RF: 0 Probiotic 3 billion cell Capsule 3,000 mmu cells PO QAM RF: 0 Elmer-3 350 mg-235 mg- 90 mg-597 mg Capsule,Delayed Release(Dr/Ec) 1 cap PO HS RF: 0 Cuarcumin 95(Turmeric) 400 mg PO QAM RF: 0 Magnesium Otc 99mg 99 mg PO QAM RF: 0 Menaquinone-7 (Vit K2) 1 cap PO QAM RF: 0 Discontinued naproxen sodium [Aleve] 220 mg Tablet 220 mg PO Q12H PRN (Reason: Pain) RF: 0 Stand-Alone Forms: My [facility] Discharge Orders: Discharge Order (Routine); Ordered 04/22/19 Ordered By: Koffi Malagon Admission Data Admit Date/Time: 04/21/19 18:46 Attending Provider: Stevo Caldera Admit Provider: Koffi Malagon Primary Care Provider: Debora Briggs Other Providers: Jeff Santiago ; Silvestre Bhardwaj Service: Telemetry Medical Supervising Physician Co-Signing Physician Notes I personally examined the patient and verified all little points of history and exam, discussed case, and agree with decision making with Dr Malagon. Feeling better. No further slurred speech. Feels up to going home. Updated to the best of my ability, also updated his son-in-law. Vitals noted, in general he is awake and alert pleasant no distress. Speech is fluent, no focal neuro deficits. Breathing unlabored no accessory muscle use. Carotids noted, lipids noted, A1c noted, blood pressure noted. TIA -cannot have MRI due to pacemaker -Carotid Doppler showing midrange stenosis which will require outpatient follow- up, but more than likely his TIA with small vessel intracranial vascular disease remedied by resumption of his aspirin. We will defer to his primary neurologist on any further management of carotids. Doubt that CT angios would be of much benefit, and with his borderline kidney function, I have concerned that the dye load would cause more harm than good. -Statin of questionable risk benefit given his age and baseline lipid profile. Certainly he may benefit as far as his vascular disease from a moderate potency statin, but his risk of intracranial bleeding seems to be higher than average given his prior history in addition to his baseline lipids. This too we will defer to his primary neurologist. -asa 81mg daily indefinitely close outpt f/u stable for home Resident Activity Tracking Resident Involvement: Resident Care Provided Care Provided: Adult Hospital Medicine
[2019-04-22] MEDS ORDERED: STROKE PATIENT DISCHARGE STA (15:34)
[2019-04-23] MEDS ORDERED: FUROSEMIDE 40 MG TAB PO SCH (09:00)
--- NOTE | 2019-05-08 11:56 | Coding Letter ---
A supporting diagnosis is required for the test/procedure performed on this patient in order for us to be reimbursed by the patient's insurance. Please provide a supporting diagnosis for the following test/procedure listed below next to the test name along with your signature. *If there is no additional diagnosis for this patient that would support the following test/procedure please document that below next to the test/procedure. Test(s)/Procedure(s) that require a supporting diagnosis: HBA1C DIAGNOSIS: Perflutren Lipid Micro DIAGNOSIS: Carotid Doppler DIAGNOSIS: Provider Signature: Date: Thank you Jessie Garcia Health Information Management Once completed, please kindly fax back to [phone] For questions please call [phone] ELI
== END 2019-04-22 16:39 ==
LOC: 2N 14:23 → ED 14:23 → 2N 19:25

== ENCOUNTER 2019-08-27 12:56 | Inpatient (IN) ==
[2019-08-27] MEDS ORDERED: ACETAMINOPHEN 500 MG TAB PO STA (13:20)
[2019-08-27 13:27] LABS: Basophils # (auto) 0.02 K/uL (0-0.2); Basophils % (auto) 0.1 %; Eosinophils # (auto) 0.08 K/uL (0-0.5); Eosinophils % (auto) 0.5 %; Hematocrit (blood only) 32.9 % (42-52); Hemoglobin 11.2 g/dL (14.0-18.0); Immature Granulocytes # (auto) 0.04 K/uL (0.00-0.02); Immature Granulocytes % (auto) 0.3 %; Lymphocytes # (auto) 0.62 K/uL (1.2-3.4); Mean Corpuscular Hemoglobin 31.2 pg (25-34); Mean Corpuscular Volume 91.6 fL (80-100); Mean Platelet Volume 9.1 fL (7.4-10.4); Monocytes # (auto) 1.16 K/uL (0.11-0.59); Monocytes % (auto) 7.5 %; Neutrophils # (auto) 13.65 K/uL (1.4-6.5); Neutrophils % (auto) 87.6 %; Platelet Count 250 K/uL (130-400); RDW Coefficient of Variation 14.4 % (11.5-14.5); RDW Standard Deviation 48.3 fL (36.4-46.3); Red Blood Count 3.59 M/uL (4.7-6.1); White Blood Count 15.57 K/uL (4.8-10.8)
[2019-08-27] MEDS ORDERED: SODIUM CHLORIDE 0.9% 1000ML 1,000 ML IV SCH ×2 (13:30→15:45)
[2019-08-27 13:34] LABS: INR 1.1 (0.9-1.1); Partial Thromboplastin Ratio 0.9; Partial Thromboplastin Time 23.8 Seconds (21.0-31.0); Prothrombin Time 11.3 Seconds (9.0-12.0)
[2019-08-27 13:39] LABS: Albumin Level 3.3 gm/dl (3.4-5.0); BUN Creatinine Ratio 14.9 (10-20); Calcium 8.7 mg/dl (8.5-10.1); Creatinine Clr Calc Pharmacy 43.8 ml/min; Est GFR (African American) 57.5; Est GFR (Non-African American) 49.6; Potassium 3.3 mmol/L (3.5-5.1)
[2019-08-27 13:41] LABS: Bilirubin,Total 0.8 mg/dl (0.2-1); Globulin 3.4 gm/dl (2.5-4.0); Total Protein 6.7 gm/dl (6.4-8.2)
--- NOTE | 2019-08-27 13:52 | XRay Report ---
XR chest 1V portable CLINICAL HISTORY: 89 years-old Male presenting with Sepsis. TECHNIQUE: Portable upright AP view of the chest was obtained. COMPARISON: 04/21/2019. FINDINGS: Atherosclerosis of the aortic arch. Cardiac silhouette enlarged. Patchy opacity predominantly periphe rally in the left mid to lower lung new from prior. Lungs may be hyperinflated. No large effusion or pneumothorax. Degenerative changes of the thoracic spine. floorworker lasting projects over the left lower lung. Cholecystectomy clips noted. IMPRESSION: 1. Peripheral infiltrate in the left mid to lower lung is evidence of pneumonia. This should be foll owed to resolution. 2. Cardiomegaly. 3. Hyperinflation could suggest underlying emphysema or other obstructive lung disease. Electronically signed by: Koffi Hernandez M.D. 08/27/2019 1:51 PM
--- NOTE | 2019-08-27 13:57 | XRay Report ---
LEFT FIRST TOE 3 VIEWS HISTORY: Left first toe swelling. COMPARISON: None. FINDINGS: Suggestion of a subtle cortical step-off at the lateral base of the distal phalanx of the f irst toe only seen on image 1. This could represent a nondisplaced fracture if the patient has had a history of recent trauma. Soft tissue swelling and a small focal ulceration at the distal tip of the first toe. No underlying bony destruction to suggest osteomyelitis. No radiopaque foreign bodies. IMPRESSION: 1. Soft tissue swelling and a small focal skin ulceration at the distal tip of the first toe. No unde rlying bony destruction to suggest osteomyelitis. 2. Suggestion of a subtle cortical step-off at the lateral base of the distal phalanx of the first to e. This could represent a nondisplaced fracture if the patient has had a history of recent trauma. Electronically signed by: Khanh Holbrook M.D. 08/27/2019 1:56 PM
[2019-08-27 14:43] LABS: Influenza A virus by PCR Neg for Influ A (Neg); Influenza B virus by PCR Neg for Influ B (Neg)
[2019-08-27] MEDS ORDERED: VANCOMYCIN CONSULT ACTIVE PRN ×2 (15:00→17:10)
[2019-08-27] MEDS ORDERED: CEFEPIME 2,000 MG/20 ML VIAL IV STA (15:00)
[2019-08-27] MEDS ORDERED: VANCOMYCIN HCL 1,500 MG in SODIUM CHLORIDE 0.9% 500 ML IV ONE (15:00)
--- NOTE | 2019-08-27 16:30 | Emergency Department Note ---
Entered by Nadege Lundberg acting as a scribe for History of Present Illness General Chief complaint: Fever Time Seen by Provider: 08/27/19 13:18 Source: patient and other (nursing staff) History of Present Illness Onset (ago): day(s) (today) Location: left (big toe) Severity: moderate (101.2) Pain Consistency: + other (episode) Maximum Pain Intensity: 0 Quality: + other (fever) Associated symptoms: + denies other symptoms (dysuria, abdominal pain) and + other (left big toe pain); no cough The patient is an 89 year old male who presents to the Emergency Room with complaints of an episode of a fever starting today. Per nursing staff, the patient is coming from [facility]. They states that today he had a temperature of 101.2 and they sent him into the E. The patient states that he thinks it may be due to his left big toe as he has been having some problems with it. The patient complains of left big toe pain. The patient denies cough, dysuria, and abdominal pain. Home Medications Home Medications Medication Instructions Recorded Confirmed Type Cuarcumin 95(Turmeric) 400 mg PO QAM 04/21/19 08/27/19 History Magnesium Otc 99mg 99 mg PO QAM 04/21/19 08/27/19 History Menaquinone-7 (Vit K2) 1 cap PO QAM 04/21/19 08/27/19 History Phillips-3 1 cap PO HS 04/21/19 08/27/19 History Probiotic 3,000 mmu cells PO QAM 04/21/19 08/27/19 History alpha lipoic acid 100 mg PO QAM 04/21/19 08/27/19 History ascorbic acid (vitamin C) [Vitamin 500 mg PO QAM 04/21/19 08/27/19 History C] aspirin 81 mg PO QAM 04/21/19 08/27/19 History cholecalciferol (vitamin D3) 1,000 unit PO QAM 04/21/19 08/27/19 History [Vitamin D3] cranberry 1,000 mg PO QAM 04/21/19 08/27/19 History furosemide 20 mg PO QAM 04/21/19 08/27/19 History furosemide 40 mg PO 3XWK 04/21/19 08/27/19 History potassium 99 mg PO QAM 04/21/19 08/27/19 History propranolol 20 mg PO TID 04/21/19 08/27/19 History tamsulosin 0.4 mg PO HS 04/21/19 08/27/19 History vitamin B complex 1 tab PO QAM 04/21/19 08/27/19 History vitamin E 400 unit PO HS 04/21/19 08/27/19 History zinc acetate 25 mg PO QAM 04/21/19 08/27/19 History acetaminophen 325 mg tablet 325 mg PO DAILY PRN tab 05/30/19 08/27/19 History glucosamine sulfate 500 mg capsule 500 mg PO DAILY cap 05/30/19 08/27/19 History magnesium oxide 500 mg capsule 500 mg PO DAILY cap 05/30/19 08/27/19 History oxybutynin chloride 15 mg 15 mg PO DAILY #30 tab 05/30/19 08/27/19 History tablet,extended release 24 hr Allergies Allergy/AdvReac Type Severity Reaction Status Date / Time Penicillins Allergy Unknown HIVES Verified 08/27/19 14:47 Past Med/Surg History Medical History Altered mental status (Acute) Anemia (Acute) Carcinoma of prostate (Chronic) CHF (congestive heart failure) Confusion (Acute) Emphysema lung Essential tremor Gross hematuria (Acute) Hypermagnesemia (Acute) Peripheral neuropathy TIA (transient ischemic attack) Family History Other Family history non-contributory Social History Preferred Language: Croatian Communication Ability: Effective Final Inspector Motorcyles Required: No Beliefs That Will Affect Care: None marital status: Current Living Situation: Spouse current occupational status: retired Feels Safe at Home: Yes Smoking Status: Unknown if ever smoked Hx Alcohol Use: Yes Alcohol type: beer Hx Substance Use: No Review of Systems See HPI for pertinent positives & negatives. and A total of 10 systems reviewed and were otherwise negative Physical Exam Vital Signs Vital Signs - 24 hr 08/27/19 13:10 08/27/19 13:24 08/27/19 14:03 Temperature 37.9 C H Temperature Source Oral Pulse Rate 76 Pulse Rate [Apical] 83 Respiratory Rate 18 16 Blood Pressure 99/56 L Blood Pressure [Right Arm] 117/67 Blood Pressure Mean 70 Blood Pressure Mean [Right Arm] 83 Pulse Oximetry 93 93 94 Oxygen Delivery Method Room Air Room Air Room Air Sepsis Recent Fever Within 48 Hours Yes Sepsis New/Unexplained Change in Mental Status No Sepsis Action Taken by Nursing No Action Required 08/27/19 15:23 08/27/19 16:16 Temperature Temperature Source Pulse Rate Pulse Rate [Apical] 89 76 Respiratory Rate 24 16 Blood Pressure Blood Pressure [Right Arm] 90/61 L 99/51 L Blood Pressure Mean Blood Pressure Mean [Right Arm] 70 67 Pulse Oximetry 96 94 Oxygen Delivery Method Room Air Room Air Sepsis Recent Fever Within 48 Hours Sepsis New/Unexplained Change in Mental Status Sepsis Action Taken by Nursing GENERAL: He is oriented to person, place, and time. He appears well-developed and well-nourished. He does not appear distressed. HENT: Exam performed. - Head: Normocephalic and atraumatic. - Right Ear: External ear normal. No mastoid tenderness. - Left Ear: External ear normal. No mastoid tenderness. - Mouth/Throat: The oropharynx is clear and moist. No trismus in the jaw. No dental abscesses or uvula swelling. No oropharyngeal exudate or tonsillar abscesses. EYES: Conjunctivae and EOM are normal. Pupils are equal, round, and reactive to light. Right eye exhibits no discharge. Left eye exhibits no discharge. No scleral icterus. NECK: Normal range of motion. Neck supple. No JVD present. No spinous process tenderness present. No carotid bruit present. No rigidity. No tracheal deviation and normal range of motion present. No Brudzinski's sign and no Kernig's sign noted. CV: Normal rate, regular rhythm, normal heart sounds and intact distal pulses. There is no peripheral edema. Palpable radial pulses bue. PULM/CHEST: Effort normal. He has rales at the bases bilaterally. No respiratory distress. No stridor. He has no wheezes. - Chest Wall: He exhibits no tenderness. ABD: The abdomen is soft. Bowel sounds are normal. He has no distension. No mass is present. There is no tenderness. There is no rebound, no guarding, no Steele's sign and no tenderness at McBurney's point. Rovsig negative. MUSC/SKEL: Normal range of motion. There is no peripheral edema, tenderness or deformity. LYMPH: No cervical adenopathy. NEURO: He is alert and oriented to person, place, and time. He has normal strength. No cranial nerve deficit or sensory deficit. Coordination and gait normal. GCS eye subscore is 4. GCS verbal subscore is 5. GCS motor subscore is 6. Cerebellar tests wnl. SKIN: Abrasion over his left great toe. There is no purulent discharge or surrounding erythema. Skin is warm and dry. He is not diaphoretic. PSYCH: He has a normal mood and affect. Behavior is normal. Judgment and thought content normal. Course Course 1323: The patient was evaluated in room C11B. A complete history and physical exam was performed. 1505: Vital signs are stable. Labs show a white count of 15. His chest x-ray shows a left mid to lower lung pneumonia. His lactic acid level was within normal limits. The patient has a PORT score/ PSI of 108 (age 89, long term resident, CHF history). Based off his score being above 90, he was considered moderate risk. Given this, we will admit the patient inpatient. He will be treated with broad spectrum antibiotics, Cefepime and Vancomycin.I discussed the patient's case with Dr. Diamond- [facility] Hospitalist. He will evaluate the patient for further management. Administered Medications Vancomycin HCl 1,500 mg/ (Sodium Chloride) 530 mls @ 200 mls/hr IV NOW ONE Stop: 08/27/19 17:38 Last Admin: 08/27/19 15:42 Dose: 200 mls/hr Documented by: [id number] Sodium Chloride (Nss 1000ml) 1,000 mls @ 125 mls/hr IV .Q8H RUTHIE Stop: 09/26/19 15:44 Last Admin: 08/27/19 15:38 Dose: 125 mls/hr Documented by: [id number] Discontinued Medications Acetaminophen (Tylenol) 1,000 mg PO NOW STA Stop: 08/27/19 13:21 Last Admin: 08/27/19 13:28 Dose: 1,000 mg Documented by: [id number] Sodium Chloride (Nss 1000ml) 1,000 mls @ 999 mls/hr IV .Q1H1M RUTHIE Stop: 08/27/19 14:00 Last Infusion: 08/27/19 14:40 Dose: 0 mls/hr Documented by: [id number] Admin: 08/27/19 13:37 Dose: 999 mls/hr Documented by: [id number] Cefepime HCl (Maxipime) 2,000 mg in 20 mls @ 5 mls/min IV NOW STA; Protocol Stop: 08/27/19 15:03 Last Admin: 08/27/19 15:42 Dose: 5 mls/min Documented by: [id number] Medical Decision Making Medical Records Attestation: I reviewed the patient's medical records. Home Medications Current Medication List: was personally reviewed by me Laboratory Data Attestation: I reviewed the patient's lab results. Result diagrams: 08/27/19 13:05 08/27/19 13:05 Lab Results 08/27/19 08/27/19 08/27/19 Range/Units 13: 13:05 13:05 WBC 15.57 H (4.8-10.8) K/uL RBC 3.59 L (4.7-6.1) M/uL Hgb 11.2 L (14.0-18.0) g/dL Hct 32.9 L (42-52) % MCV 91.6 (80-100) fL MCH 31.2 (25-34) pg MCHC 34.0 (32-36) g/dL RDW Std Deviation 48.3 H (36.4-46.3) fL RDW Coeff of Bayron 14.4 (11.5-14.5) % Plt Count 250 (130-400) K/uL MPV 9.1 (7.4-10.4) fL Immature Gran % (Auto) 0.3 % Neut % (Auto) 87.6 % Lymph % (Auto) 4.0 % Peach % (Auto) 7.5 % Eos % (Auto) 0.5 % Baso % (Auto) 0.1 % Immature Gran # (Auto) 0.04 H (0.00-0.02) K/uL Neut # (Auto) 13.65 H (1.4-6.5) K/uL Lymph # (Auto) 0.62 L (1.2-3.4) K/uL Peach # (Auto) 1.16 H (0.11-0.59) K/uL Eos # (Auto) 0.08 (0-0.5) K/uL Baso # (Auto) 0.02 (0-0.2) K/uL PT 11.3 (9.0-12.0) Seconds INR 1.1 (0.9-1.1) APTT 23.8 (21.0-31.0) Seconds PTT Ratio 0.9 Sodium (136-145) mmol/L Potassium (3.5-5.1) mmol/L Chloride (98-107) mmol/L Carbon Dioxide (21-32) mmol/L Anion Gap (3-11) BUN (7-18) mg/dl Creatinine (0.6-1.4) mg/dl Est Cr Clr Drug Dosing ml/min Est GFR ( Amer) Est GFR (Non-Af Amer) BUN/Creatinine Ratio (10-20) Glucose (70-99) mg/dl POC Lactic Acid Lenny (0.90-1.70) mmol/L Calcium (8.5-10.1) mg/dl Total Bilirubin (0.2-1) mg/dl AST (15-37) U/L ALT (12-78) U/L Alkaline Phosphatase (45-117) U/L Total Protein (6.4-8.2) gm/dl Albumin (3.4-5.0) gm/dl Globulin (2.5-4.0) gm/dl Albumin/Globulin Ratio (0.9-2) Procalcitonin 0.10 (0-0.5) ng/ml Influenza Type A (PCR) (Neg) Influenza Type B (PCR) (Neg) 08/27/19 08/27/19 08/27/19 Range/Units 13:05 13:37 13:45 WBC (4.8-10.8) K/uL RBC (4.7-6.1) M/uL Hgb (14.0-18.0) g/dL Hct (42-52) % MCV (80-100) fL MCH (25-34) pg MCHC (32-36) g/dL RDW Std Deviation (36.4-46.3) fL RDW Coeff of Bayron (11.5-14.5) % Plt Count (130-400) K/uL MPV (7.4-10.4) fL Immature Gran % (Auto) % Neut % (Auto) % Lymph % (Auto) % Peach % (Auto) % Eos % (Auto) % Baso % (Auto) % Immature Gran # (Auto) (0.00-0.02) K/uL Neut # (Auto) (1.4-6.5) K/uL Lymph # (Auto) (1.2-3.4) K/uL Peach # (Auto) (0.11-0.59) K/uL Eos # (Auto) (0-0.5) K/uL Baso # (Auto) (0-0.2) K/uL PT (9.0-12.0) Seconds INR (0.9-1.1) APTT (21.0-31.0) Seconds PTT Ratio Sodium 140 (136-145) mmol/L Potassium 3.3 L (3.5-5.1) mmol/L Chloride 107 (98-107) mmol/L Carbon Dioxide 26 (21-32) mmol/L Anion Gap 7.0 (3-11) BUN 19 H (7-18) mg/dl Creatinine 1.28 (0.6-1.4) mg/dl Est Cr Clr Drug Dosing 43.8 ml/min Est GFR ( Amer) 57.5 Est GFR (Non-Af Amer) 49.6 BUN/Creatinine Ratio 14.9 (10-20) Glucose 122 H (70-99) mg/dl POC Lactic Acid Lenny 1.23 (0.90-1.70) mmol/L Calcium 8.7 (8.5-10.1) mg/dl Total Bilirubin 0.8 (0.2-1) mg/dl AST 18 (15-37) U/L ALT 17 (12-78) U/L Alkaline Phosphatase 59 (45-117) U/L Total Protein 6.7 (6.4-8.2) gm/dl Albumin 3.3 L (3.4-5.0) gm/dl Globulin 3.4 (2.5-4.0) gm/dl Albumin/Globulin Ratio 1.0 (0.9-2) Procalcitonin (0-0.5) ng/ml Influenza Type A (PCR) Neg for Influ A (Neg) Influenza Type B (PCR) Neg for Influ B (Neg) Imaging Data Radiologist's Impression: Radiology results as stated below per my review and the radiologist's interpretation: XR chest 1V portable CLINICAL HISTORY: 89 years-old Male presenting with Sepsis. TECHNIQUE: Portable upright AP view of the chest was obtained. COMPARISON: 04/21/2019. FINDINGS: Atherosclerosis of the aortic arch. Cardiac silhouette enlarged. Patchy opacity predominantly peripherally in the left mid to lower lung new from prior. Lungs may be hyperinflated. No large effusion or pneumothorax. Degenerative changes of the thoracic spine. mri special procedures technologist projects over the left lower lung. Cholecystectomy clips noted. IMPRESSION: 1. Peripheral infiltrate in the left mid to lower lung is evidence of pneumonia. This should be followed to resolution. 2. Cardiomegaly. 3. Hyperinflation could suggest underlying emphysema or other obstructive lung disease. Electronically signed by: Koffi Hernandez M.D. 08/27/2019 1:51 PM LEFT FIRST TOE 3 VIEWS HISTORY: Left first toe swelling. COMPARISON: None. FINDINGS: Suggestion of a subtle cortical step-off at the lateral base of the distal phalanx of the first toe only seen on image 1. This could represent a nondisplaced fracture if the patient has had a history of recent trauma. Soft tissue swelling and a small focal ulceration at the distal tip of the first toe. No underlying bony destruction to suggest osteomyelitis. No radiopaque foreign bodies. IMPRESSION: 1. Soft tissue swelling and a small focal skin ulceration at the distal tip of the first toe. No underlying bony destruction to suggest osteomyelitis. 2. Suggestion of a subtle cortical step-off at the lateral base of the distal phalanx of the first toe. This could represent a nondisplaced fracture if the patient has had a history of recent trauma. Electronically signed by: Khanh Holbrook M.D. 08/27/2019 1:56 PM Blood Pressure Blood Pressure Findings: Low blood pressure Blood Pressure Disposition: further management by hospitalist KAYLIE Blake Vital signs are stable. Labs show a white count of 15. His chest x-ray shows a left mid to lower lung pneumonia. His lactic acid level was within normal limits. The patient has a PORT score/ PSI of 108 (age 89, long term resident, CHF history). Based off his score being above 90, he was considered moderate risk. Given this, we will admit the patient inpatient. He will be treated with broad spectrum antibiotics, Cefepime and Vancomycin.I discussed the patient's ca se with Dr. Diamond- [facility] Hospitalist. He will evaluate the patient for further management. Impression & Plan Pneumonia, Sepsis Discharge Plan Visit Data Chief Complaint: Fever ED Provider: Maury Duarte Discharge Problem: Pneumonia, Sepsis Patient Disposition: Being Evaluated by Hospitalist Forms Stand Alone Forms: [facility] Prescriptions Prescriptions: No Action magnesium oxide 500 mg capsule 500 mg PO DAILY RF: 0 glucosamine sulfate 500 mg capsule 500 mg PO DAILY RF: 0 oxybutynin chloride 15 mg tablet extended release 24hr 15 mg PO DAILY Qty: 30 RF: 0 acetaminophen 325 mg tablet 325 mg PO DAILY PRN (Reason: Pain) RF: 0 zinc acetate 25 mg (zinc) Capsule 25 mg PO QAM RF: 0 aspirin 81 mg Tablet,Delayed Release (Dr/Ec) 81 mg PO QAM RF: 0 propranolol 10 mg tablet 20 mg PO TID RF: 0 potassium 99 mg Tablet 99 mg PO QAM RF: 0 ascorbic acid (vitamin C) [Vitamin C] 500 mg Tablet 500 mg PO QAM RF: 0 tamsulosin 0.4 mg capsule 0.4 mg PO HS RF: 0 vitamin B complex Tablet 1 tab PO QAM RF: 0 furosemide 20 mg tablet 40 mg PO 3XWK RF: 0 furosemide 20 mg tablet 20 mg PO QAM RF: 0 vitamin E 400 unit Capsule 400 unit PO HS RF: 0 cranberry 500 mg Capsule 1,000 mg PO QAM RF: 0 cholecalciferol (vitamin D3) [Vitamin D3] 1,000 unit Tablet 1,000 unit PO QAM RF: 0 alpha lipoic acid 100 mg Capsule 100 mg PO QAM RF: 0 Probiotic 3 billion cell Capsule 3,000 mmu cells PO QAM RF: 0 Phillips-3 350 mg-235 mg- 90 mg-597 mg Capsule,Delayed Release(Dr/Ec) 1 cap PO HS RF: 0 Cuarcumin 95(Turmeric) 400 mg PO QAM RF: 0 Magnesium Otc 99mg 99 mg PO QAM RF: 0 Menaquinone-7 (Vit K2) 1 cap PO QAM RF: 0 Referrals Referrals: Debora Briggs MD [Primary Care Provider] - Discharge Problem: Pneumonia Qualifiers: Pneumonia type: due to unspecified organism Laterality: unspecified laterality Lung location: unspecified part of lung Qualified Code(s): J18.9 - Pneumonia, unspecified organism Sepsis Qualifiers: Sepsis type: sepsis due to unspecified organism Sepsis acute organ dysfunction status: unspecified Qualified Code(s): A41.9 - Sepsis, unspecified organism The scribe's documentation has been prepared under my direction and personally reviewed by me in its entirety. I confirm that the note above accurately reflects all work, treatment, procedures, and medical decision making performed by me.
[2019-08-27 16:58] LABS: Appearance Urine Clear (Clear); Bacteria Urine Automated Negative (Negative); Bilirubin Urine Negative (Negative); Blood Urine 2+ (Negative); Color Urine Dark Yellow; Epithelial Cell Urine Auto >30 /lpf (0-5); Glucose Urine UA Negative (Negative); Ketones Urine 1+ (Negative); Leukocyte Esterase Urine Negative (Negative); Nitrite Urine Negative (Negative); Protein Urine Trace (Negative); Specific Gravity Urine 1.018 (1.000-1.030); Urobilinogen Urine Negative (Negative); pH Urine 5.5 (4.5-7.5)
[2019-08-27] MEDS ORDERED: ZOLPIDEM TARTRATE 5 MG TAB PO PRN (17:13)
[2019-08-27] MEDS ORDERED: POLYETHYLENE (MIRALAX) 17 GM PACK PO PRN (17:13)
[2019-08-27] MEDS ORDERED: ALUMINUM/MAGNESIUM SUSP 30 ML UDC PO PRN (17:13)
[2019-08-27] MEDS ORDERED: MAGNESIUM HYDROXIDE SUSP 30 ML UDC PO PRN (17:13)
[2019-08-27] MEDS ORDERED: ACETAMINOPHEN 325 MG TAB PO PRN (17:13)
[2019-08-27] MEDS ORDERED: AZITHROMYCIN 500 MG in PEDIATRIC DILUENT 0 ML IV SCH (17:15)
[2019-08-27] MEDS ORDERED: CEFEPIME 1,000 MG in SYRINGE 0 ML IV SCH (17:15)
--- NOTE | 2019-08-27 17:19 | History & Physical Report ---
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 Patient had debridement to his left first toe, did not require any antibiotics as per family, this morning he had an episode of diarrhea as per and was found to have a fever of 101.2 family thought that his toe is infected and brought him to the ED, in the ED his toe looked normal and chest x-ray revealed left middle and lower lobe pneumonia, he only complained of chills he was not aware of his fever, said that he has intermittent cough, with yellowish sputum, although denied cough during his interview with the ED physician. Denies any shortness of breath or chest pain. Patient will be admitted for further evaluation and management. Primary Care Provider: Debora Briggs MD Allergies Allergy/AdvReac Type Severity Reaction Status Date / Time Penicillins Allergy Unknown HIVES Verified 08/27/19 14:47 Home Medications Home Medications Medication Instructions Recorded Confirmed Type Cuarcumin 95(Turmeric) 400 mg PO QAM 04/21/19 08/27/19 History Magnesium Otc 99mg 99 mg PO QAM 04/21/19 08/27/19 History Menaquinone-7 (Vit K2) 1 cap PO QAM 04/21/19 08/27/[address] [place]-3 1 cap PO HS 04/21/19 08/27/19 History Probiotic 3,000 mmu cells PO QAM 04/21/19 08/27/19 History alpha lipoic acid 100 mg PO QAM 04/21/19 08/27/19 History ascorbic acid (vitamin C) [Vitamin 500 mg PO QAM 04/21/19 08/27/19 History C] aspirin 81 mg PO QAM 04/21/19 08/27/19 History cholecalciferol (vitamin D3) 1,000 unit PO QAM 04/21/19 08/27/19 History [Vitamin D3] cranberry 1,000 mg PO QAM 04/21/19 08/27/19 History furosemide 20 mg PO QAM 04/21/19 08/27/19 History furosemide 40 mg PO 3XWK 04/21/19 08/27/19 History potassium 99 mg PO QAM 04/21/19 08/27/19 History propranolol 20 mg PO TID 04/21/19 08/27/19 History tamsulosin 0.4 mg PO HS 04/21/19 08/27/19 History vitamin B complex 1 tab PO QAM 04/21/19 08/27/19 History vitamin E 400 unit PO HS 04/21/19 08/27/19 History zinc acetate 25 mg PO QAM 04/21/19 08/27/19 History acetaminophen 325 mg tablet 325 mg PO DAILY PRN tab 05/30/19 08/27/19 History glucosamine sulfate 500 mg capsule 500 mg PO DAILY cap 05/30/19 08/27/19 History magnesium oxide 500 mg capsule 500 mg PO DAILY cap 05/30/19 08/27/19 History oxybutynin chloride 15 mg 15 mg PO DAILY #30 tab 05/30/19 08/27/19 History tablet,extended release 24 hr Past Med/Surg History Medical History Altered mental status (Acute) Anemia (Acute) Carcinoma of prostate (Chronic) CHF (congestive heart failure) Confusion (Acute) Emphysema lung Essential tremor Gross hematuria (Acute) Hypermagnesemia (Acute) Peripheral neuropathy TIA (transient ischemic attack) Family History Other Family history non-contributory Social History Preferred Language: Hungarian Communication Ability: Effective Edger Hand Required: No Beliefs That Will Affect Care: None marital status: Current Living Situation: Spouse current occupational status: retired Feels Safe at Home: Yes Smoking Status: Unknown if ever smoked Hx Alcohol Use: Yes Alcohol type: beer Hx Substance Use: No Review of Systems Review of Systems: Review of system Constitutional: Positive for chills Eyes: no blurring of vision / no eye pain / no discharge / no redness ENT: no hearing loss / no epistaxis /no swallowing problems Respiratory: Positive for productive cough with yellowish sputum/ no wheezing / no SOB / no hemoptysis Cardiovascular: no Chest pain / no lower extremity edema / no palpitation Abdomen: no pain / no nausea / no vomiting / no constipation Musculoskeletal: no joint pain / no muscle pain / no joint swelling Genitourinary: no dysuria / no incontinence / no urinary retention Neurologic: no focal weakness / no numbness/tingling / no ataxia Psychiatric: no depression symptoms / no anxiety / no insomnia Endocrine: no excessive thirst / no excessive urination Hematologic: no abnormal bleeding / no bruising / no LN swelling Skin: No rash / no pallor Physical Exam Physical Exam: Physical examination General patient appears to be comfortable, not in acute distress HEENT: Atraumatic , normocephalic /no jaundice /no pallor /anicteric /no dry mucous membrane /normal external ear inspection Neck: Supple /no swelling /central trach Heart: S1/S2 normal/regular rate and rhythm/no gallop /no rub /no murmur Lungs: Clear to auscultation bilaterally/normal chest with expansion/no rhonchi/no rales/no wheezing/no use of accessory muscles of respiration Abdomen: Soft/nontender/no guarding/no rebound/no organomegaly/no pulsatile mass Musculoskeletal: No swelling/no edema/no tenderness/normal range of motion Neuro exam: Awake alert oriented 3/cranial nerves II through XII appear to be intact/sensation intact/moves all extremities/no abnormal movements Psychiatric evaluation: No depressed mood/normal affect Skin: No rash on exposed skin area/no erythema Extremity: Normal pulse/no pitting edema/no clubbing or cyanosis, first toe left foot had a clean-based ulcer/debridement Endocrine/lymphatic: No obvious lymphadenopathy /no lymphedema Results & Data Vital Signs (Past 12 Hours) Vital Signs Temp Pulse Pulse Resp BP BP Pulse Ox 08/27/19 16:16 76 16 99/51 L 94 08/27/19 15:23 89 24 90/61 L 96 08/27/19 14:03 83 16 117/67 94 08/27/19 13:24 93 08/27/19 13:10 37.9 C H 76 18 99/56 L 93 Code Status & VTE Plan Code Status Full code as per family VTE Prophylaxis Plan VTE Prophylaxis will be ordered: Yes PG Care Time/CCT Total # of Minutes Spent Total Time Spent with Patient: 35 minutes total time spent is greater than 50% i n coordination of care (as documented) at patient's floor/unit and/or counseling patient/family discussion of care with nursing staff (1) Pneumonia Laterality: unspecified laterality Lung location: unspecified part of lung Pneumonia type: due to unspecified organism Qualified Code(s): J18.9 - Pneumonia, unspecified organism (2) Sepsis Sepsis acute organ dysfunction status: unspecified Sepsis type: sepsis due to unspecified organism Qualified Code(s): A41.9 - Sepsis, unspecified organism
--- NOTE | 2019-08-27 19:38 | Pharmacy Report ---
Pharmacy Abx Dose Short Note - Date of Service August 27, 2019 - Assessment & Plan Assessment 89 year old M presented with hypotension and fever. Ordered empiric vancomycin, cefepime, and azithromycin for treatment of pneumonia. * MRSA nasal swab pending Plan Vancomycin * PK estimates: Vd = 56 L, ke = 0.04, T1/2 = 17.3 hr * Start vancomycin 1500 mg IV q24h * Goal trough level for pneumonia: 15-20 mcg/mL * Trough level will be ordered prior to the 4th total dose if therapy continues Pharmacy will continue to follow and will adjust dose/frequency as necessary. Thank you.
[2019-08-27] MEDS: SODIUM CHLORIDE 0.9% 1000ML 1,000 ML IV SCH (19:49)
[2019-08-27] MEDS: AZITHROMYCIN 500 MG in DEXTROSE 5% 250 ML IV SCH (19:50)
[2019-08-27] MEDS: TAMSULOSIN HCL 0.4 MG CAP PO SCH (21:10)
[2019-08-27] MEDS: HEPARIN SOD 5,000 UNIT/0.5 ML VIAL SQ SCH (21:10)
[2019-08-28] MEDS ORDERED: CEFEPIME 2,000 MG in SYRINGE 7.5 ML IV SCH (04:00)
[2019-08-28 07:14] LABS: Creatinine Clr Calc Pharmacy 44.8 ml/min; Est GFR (African American) 59.2; Est GFR (Non-African American) 51.1
[2019-08-28] MEDS ORDERED: POTASSIUM CHLORIDE 20 MEQ TABCR PO STA (07:57)
[2019-08-28] MEDS ORDERED: NON-FORMULARY MEDICATION (Potassium 99 MG) PO SCH (09:00)
[2019-08-28] MEDS: OXYBUTYNIN CHLORIDE XL 5 MG TABCR PO SCH (09:28)
[2019-08-28] MEDS: ASPIRIN 81 MG ECTAB PO SCH (09:30)
[2019-08-28] MEDS: LACTOBACILLUS ACIDOPHILUS (FLORANEX) TAB PO SCH (09:30)
[2019-08-28] MEDS: HEPARIN SOD 5,000 UNIT/0.5 ML VIAL SQ SCH ×2 (09:32→21:02)
[2019-08-28] MEDS: MAGNESIUM OXIDE 400 MG TAB PO SCH (09:33)
--- NOTE | 2019-08-28 10:30 | Hospitalist Progress Note ---
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 Pneumonia CXR- Peripheral infiltrate in the left mid to lower lung Cefepime/Vanco/azithromycin started on admission. DC'd Cefepime/Vanco, cont Azithromycin, start Rocephin Procalcitonin- 0.86 Blood cultures/sputum culture pending Urine Legionella- pending Left Toe Toe XR- Soft tissue swelling and a small focal skin ulceration at the distal tip of the first toe. No underlying bony destruction to suggest osteomyelitis Follows with wound care at [facility] No concerns for acute infection this infection Essential hypertension Holding home BP meds 2/2 low pressures Afib On ASA, not on anticoagulation BPH Continue Flomax Parkinsons disease Supportive care and fall precaution FEN/GI: Regular Diet DVT Prophylaxis: Heparin DNR/DNI Dispo: Med Surg. PT/OT pending Supervising Physician Co-Signing Physician Notes I personally examined the patient and verified all little points of history and exam, discussed case, and agree with decision making with Dr Fatima Feeling okay. Notes that his toe injury started whenever he slipped in the shower and kicked it into a wall. Seems to have started as a split in the skin. His breathing is doing okay. Vitals noted, in general he is awake and alert pleasant no distress. HEENT normocephalic atraumatic mucous members moist. Breathing is unlabored he does have scattered rales and somewhat diminished air entry no rhonchi no wheezes good effort. His toe shows a small area of reddish ulceration no exudate mild tenderness around it no tracking erythema Imaging reviewed both reports and in person Pneumonia with sepsis present on admissionwhile he seems minimally symptomatic from this, as he and I discussed it seems like he is frequently minimally symptomatic from a lot of illnesses. And a white count and he has a rather lar ge infiltrate on x-ray. MRSA nares negative so we can de-escalate, doubt Pseudomonas we will also de-escalate gram-negative coverage. Continue Zithromax. Improving nicely. Toe ulcerclinically does not look infected. He notes he is following with a Dr. Benavides for this. X-ray findings of a possible subtle fracture noted, but given that the ulcer does not go to the level of the bone, and given that the potential possible fracture is not displaced, seems that local wound care for the ulcer and natural healing for the toe will be what appropriate. 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 Stable for medical, hopefully home in the next day or 2 depending on his clinical progress Subjective 89 yo M found in bed this AM in NAD. No reported overnight events. Breathing ok. Tolerating PO intake. No issues with toe. No other acute concerns or complaints. Review of Systems Review of Systems: All systems reviewed & are unremarkable except as noted in HPI & below Physical Exam Constitutional: WD/WN, vitals as above Eyes: PERRL, conjunctivae normal, anicteric sclerae ENMT: external ear and nose normal, oropharynx normal Respiratory: normal respiratory effort, lungs clear to auscultation Cardiovascular: RRR, no murmur, no edema Gastrointestinal (Abdomen): normal bowel sounds, soft, nontender, no hepatosplenomegaly Skin: L toe bandaged C/D/I Psychiatric: A+Ox3, euthymic affect Results & Data Vital Signs (Past 12 Hours) Vital Signs Temp Pulse Pulse Resp BP BP Pulse Ox 08/28/19 08:24 36.7 C 73 12 93/53 L 94 08/28/19 03:34 36.7 C 76 20 103/47 L 92 08/28/19 00:24 36.7 C 71 20 103/55 L 98 08/27/19 23:30 71 Laboratory Results Laboratory Results - last 24 hr 08/27/19 08/27/19 08/27/19 13:05 13:05 13:05 WBC 15.57 H RBC 3.59 L Hgb 11.2 L Hct 32.9 L MCV 91.6 MCH 31.2 MCHC 34.0 RDW Std Deviation 48.3 H RDW Coeff of Bayron 14.4 Plt Count 250 MPV 9.1 Immature Gran % (Auto) 0.3 Neut % (Auto) 87.6 Lymph % (Auto) 4.0 Bulloch % (Auto) 7.5 Eos % (Auto) 0.5 Baso % (Auto) 0.1 Immature Gran # (Auto) 0.04 H Neut # (Auto) 13.65 H Lymph # (Auto) 0.62 L Bull[place] # (Auto) 1.16 H Eos # (Auto) 0.08 Baso # (Auto) 0.02 PT 11.3 INR 1.1 APTT 23.8 PTT Ratio 0.9 Sodium Potassium Chloride Carbon Dioxide Anion Gap BUN Creatinine Est Cr Clr Drug Dosing Est GFR ( Amer) Est GFR (Non-Af Amer) BUN/Creatinine Ratio Glucose POC Lactic Acid Lenny Calcium Total Bilirubin AST ALT Alkaline Phosphatase Total Protein Albumin Globulin Albumin/Globulin Ratio Procalcitonin 0.10 Random Cortisol Urine Color Urine Appearance Urine pH Ur Specific [place] Urine Protein Urine Glucose (UA) Urine Ketones Urine Blood Urine Nitrite Urine Bilirubin Urine Urobilinogen Ur Leukocyte Esterase Urine WBC (Auto) Urine RBC (Auto) U Hyaline Cast (Auto) U Epithel Cells (Auto) Urine Bacteria (Auto) Ur Renal Epithelial Cell Nasal Screen MRSA (PCR) Influenza Type A (PCR) Influenza Type B (PCR) Urine Legionella Ag 08/27/19 08/27/19 08/27/19 13:05 13:37 13:45 WBC RBC Hgb Hct MCV MCH MCHC RDW Std Deviation RDW Coeff of Bayron Plt Count MPV Immature Gran % (Auto) Neut % (Auto) Lymph % (Auto) [place] % (Auto) Eos % (Auto) Baso % (Auto) Immature Gran # (Auto) Neut # (Auto) Lymph # (Auto) Bulloch # (Auto) Eos # (Auto) Baso # (Auto) PT INR APTT PTT Ratio Sodium 140 Potassium 3.3 L Chloride 107 Carbon Dioxide 26 Anion Gap 7.0 BUN 19 H Creatinine 1.28 Est Cr Clr Drug Dosing 43.8 Est GFR ( Amer) 57.5 Est GFR (Non-Af Amer) 49.6 BUN/Creatinine Ratio 14.9 Glucose 122 H POC Lactic Acid Lenny 1.23 Calcium 8.7 Total Bilirubin 0.8 AST 18 ALT 17 Alkaline Phosphatase 59 Total Protein 6.7 Albumin 3.3 L Globulin 3.4 Albumin/Globulin Ratio 1.0 Procalcitonin Random Cortisol Urine Color Urine Appearance Urine pH Ur Specific [place] Urine Protein Urine Glucose (UA) Urine Ketones Urine Blood Urine Nitrite Urine Bilirubin Urine Urobilinogen Ur Leukocyte Esterase Urine WBC (Auto) Urine RBC (Auto) U Hyaline Cast (Auto) U Epithel Cells (Auto) Urine Bacteria (Auto) Ur Renal Epithelial Cell Nasal Screen MRSA (PCR) Influenza Type A (PCR) Neg for Influ A Influenza Type B (PCR) Neg for Influ B Urine Legionella Ag 08/27/19 08/27/19 08/27/19 16:25 17:10 18:17 WBC RBC Hgb Hct MCV MCH MCHC RDW Std Deviation RDW Coeff of Bayron Plt Count MPV Immature Gran % (Auto) Neut % (Auto) Lymph % (Auto) [place] % (Auto) Eos % (Auto) Baso % (Auto) Immature Gran # (Auto) Neut # (Auto) Lymph # (Auto) Bulloch # (Auto) Eos # (Auto) Baso # (Auto) PT INR APTT PTT Ratio Sodium Potassium Chloride Carbon Dioxide Anion Gap BUN Creatinine Est Cr Clr Drug Dosing Est GFR ( Amer) Est GFR (Non-Af Amer) BUN/Creatinine Ratio Glucose POC Lactic Acid Lenny Calcium Total Bilirubin AST ALT Alkaline Phosphatase Total Protein Albumin Globulin Albumin/Globulin Ratio Procalcitonin Random Cortisol 21.50 Urine Color Dark Yellow Urine Appearance Clear Urine pH 5.5 Ur Specific [place] 1.018 Urine Protein Trace H Urine Glucose (UA) Negative Urine Ketones 1+ H Urine Blood 2+ H Urine Nitrite Negative Urine Bilirubin Negative Urine Urobilinogen Negative Ur Leukocyte Esterase Negative Urine WBC (Auto) 10-30 H Urine RBC (Auto) 10-30 H U Hyaline Cast (Auto) 5-10 H U Epithel Cells (Auto) >30 H Urine Bacteria (Auto) Negative Ur Renal Epithelial Cell 5-10 H Nasal Screen MRSA (PCR) Negative Influenza Type A (PCR) Influenza Type B (PCR) Urine Legionella Ag 08/27/19 08/28/19 08/28/19 18:31 01:15 06:20 WBC RBC Hgb Hct MCV MCH MCHC RDW Std Deviation RDW Coeff of Bayron Plt Count MPV Immature Gran % (Auto) Neut % (Auto) Lymph % (Auto) [place] % (Auto) Eos % (Auto) Baso % (Auto) Immature Gran # (Auto) Neut # (Auto) Lymph # (Auto) [place] # (Auto) Eos # (Auto) Baso # (Auto) PT INR APTT PTT Ratio Sodium Potassium Chloride Carbon Dioxide Anion Gap BUN Creatinine 1.25 Est Cr Clr Drug Dosing 44.8 Est GFR ( Amer) 59.2 Est GFR (Non-Af Amer) 51.1 BUN/Creatinine Ratio Glucose POC Lactic Acid Lenny Calcium Total Bilirubin AST ALT Alkaline Phosphatase Total Protein Albumin Globulin Albumin/Globulin Ratio Procalcitonin 0.86 H Random Cortisol Urine Color Urine Appearance Urine pH Ur Specific [place] Urine Protein Urine Glucose (UA) Urine Ketones Urine Blood Urine Nitrite Urine Bilirubin Urine Urobilinogen Ur Leukocyte Esterase Urine WBC (Auto) Urine RBC (Auto) U Hyaline Cast (Auto) U Epithel Cells (Auto) Urine Bacteria (Auto) Ur Renal Epithelial Cell Nasal Screen MRSA (PCR) Influenza Type A (PCR) Influenza Type B (PCR) Urine Legionella Ag Pending Medications Administered Current Inpatient Medications Acetaminophen (Tylenol) 650 mg PO Q4H PRN PRN Reason: Pain or Fever Stop: 09/26/19 17:12 Last Admin: 08/28/19 08:28 Dose: 650 mg Documented by: Al Hydrox/Mg Hydrox/Simethicone (Maalox) 15 ml PO Q4H PRN PRN Reason: Dyspepsia Stop: 09/26/19 17:12 Aspirin (Ecotrin Ectab) 81 mg PO QAM [facility] Stop: 09/27/19 08:59 Last Admin: 08/28/19 09:30 Dose: 81 mg Documented by: Heparin Sodium (Porcine) (Heparin Sodium (Porcine)) 5,000 units SQ Q12 [facility] Stop: 09/26/19 20:59 Last Admin: 08/28/19 09:32 Dose: 5,000 units Documented by: Sodium Chloride (Nss 1000ml) 1,000 mls @ 70 mls/hr IV .[id number] [facility] Stop: 09/26/19 17:14 Last Admin: 08/27/19 19:49 Dose: 70 mls/hr Documented by: Azithromycin 500 mg/ Dextrose 255 mls @ 127.5 mls/hr IV Q24H [facility] Stop: 09/03/19 18:59 Last Infusion: 08/27/19 21:50 Dose: Infused Documented by: Ceftriaxone Sodium 2,000 mg/ (Dextrose) 70 mls @ 100 mls/hr IV Q24H [facility]; Protocol Stop: 09/04/19 10:59 Lactobacillus Acidophilus (Floranex) 4 tab PO DAILY [facility] Stop: 09/27/19 08:59 Last Admin: 08/28/19 09:30 Dose: 4 tab Documented by: Magnesium Hydroxide (Milk Of Magnesia) 30 ml PO Q12H PRN PRN Reason: Constipation Stop: 09/26/19 17:12 Magnesium Oxide (Mag-Ox) 400 mg PO DAILY [facility] Stop: 09/27/19 08:59 Last Admin: 08/28/19 09:33 Dose: 400 mg Documented by: Oxybutynin Chloride (Ditropan Xl) 15 mg PO DAILY [facility] Stop: 09/27/19 08:59 Last Admin: 08/28/19 09:28 Dose: 15 mg Documented by: Polyethylene Glycol (Miralax Powder Packet) 17 gm PO DAILY PRN PRN Reason: Constipation Stop: 09/26/19 17:12 Tamsulosin HCl (Flomax) 0.4 mg PO HS [facility] Stop: 09/26/19 20:59 Last Admin: 08/27/19 21:10 Dose: 0.4 mg Documented by: Zolpidem Tartrate (Ambien) 5 mg PO HS PRN PRN Reason: Sleep Stop: 09/26/19 17:12 Resident Activity Tracking Resident Involvement: Resident Care Provided Care Provided: Adult Hospital Medicine (1) Pneumonia Laterality: unspecified laterality Lung location: unspecified part of lung Pneumonia type: due to unspecified organism Qualified Code(s): J18.9 - Pneumonia, unspecified organism
[2019-08-28] MEDS: SODIUM CHLORIDE 0.9% 1000ML 1,000 ML IV SCH (11:52)
[2019-08-28] MEDS: cefTRIAXone SODIUM 2,000 MG in DEXTROSE 5% 50 ML IV SCH (11:52)
[2019-08-28] MEDS ORDERED: VANCOMYCIN HCL 1,500 MG in SODIUM CHLORIDE 0.9% 500 ML IV SCH (14:00)
--- NOTE | 2019-08-28 19:27 | Billing Data ---
Coding Level of Care Code 40974 Initial Inpt Care Lvl 3
[2019-08-28] MEDS: AZITHROMYCIN 500 MG in DEXTROSE 5% 250 ML IV SCH (19:42)
[2019-08-28] MEDS: TAMSULOSIN HCL 0.4 MG CAP PO SCH (21:02)
[2019-08-29] MEDS: SODIUM CHLORIDE 0.9% 1000ML 1,000 ML IV SCH ×2 (00:49→11:33)
[2019-08-29 07:05] LABS: Basophils # (auto) 0.03 K/uL (0-0.2); Basophils % (auto) 0.3 %; Eosinophils # (auto) 0.31 K/uL (0-0.5); Eosinophils % (auto) 3.2 %; Hematocrit (blood only) 27.6 % (42-52); Hemoglobin 9.2 g/dL (14.0-18.0); Immature Granulocytes # (auto) 0.03 K/uL (0.00-0.02); Immature Granulocytes % (auto) 0.3 %; Lymphocytes # (auto) 1.23 K/uL (1.2-3.4); Lymphocytes % (auto) 12.8 %; Mean Corpuscular Hgb Conc 33.3 g/dL (32-36); Mean Corpuscular Volume 92.9 fL (80-100); Mean Platelet Volume 9.6 fL (7.4-10.4); Monocytes # (auto) 1.03 K/uL (0.11-0.59); Monocytes % (auto) 10.7 %; Neutrophils % (auto) 72.7 %; Platelet Count 206 K/uL (130-400); RDW Coefficient of Variation 14.9 % (11.5-14.5); RDW Standard Deviation 50.8 fL (36.4-46.3); Red Blood Count 2.97 M/uL (4.7-6.1); White Blood Count 9.63 K/uL (4.8-10.8)
[2019-08-29 07:38] LABS: BUN Creatinine Ratio 11.8 (10-20); Calcium 8.9 mg/dl (8.5-10.1); Creatinine Clr Calc Pharmacy 44.5 ml/min; Est GFR (African American) 63.5; Est GFR (Non-African American) 54.8; Potassium 4.1 mmol/L (3.5-5.1)
[2019-08-29] MEDS: LACTOBACILLUS ACIDOPHILUS (FLORANEX) TAB PO SCH (08:02)
[2019-08-29] MEDS: HEPARIN SOD 5,000 UNIT/0.5 ML VIAL SQ SCH ×2 (08:02→20:59)
[2019-08-29] MEDS: OXYBUTYNIN CHLORIDE XL 5 MG TABCR PO SCH (08:02)
[2019-08-29] MEDS: MAGNESIUM OXIDE 400 MG TAB PO SCH (08:02)
[2019-08-29] MEDS: ASPIRIN 81 MG ECTAB PO SCH (08:02)
[2019-08-29] MEDS: cefTRIAXone SODIUM 2,000 MG in DEXTROSE 5% 50 ML IV SCH (11:33)
--- NOTE | 2019-08-29 13:15 | Discharge Summary ---
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 Patient had debridement to his left first toe, did not require any antibiotics as per family, this morning he had an episode of diarrhea as per and was found to have a fever of 101.2 family thought that his toe is infected and brought him to the ED, in the ED his toe looked normal and chest x-ray revealed left middle and lower lobe pneumonia, he only complained of chills he was not aware of his fever, said that he has intermittent cough, with yellowish sputum, although denied cough during his interview with the ED physician. Denies any shortness of breath or chest pain. Patient will be admitted for further evaluation and management. Principal Diagnosis pna Discharge Exam Constitutional WD/WN, vitals as above Eyes PERRL, conjunctivae normal, anicteric sclerae ENMT external ear and nose normal, oropharynx normal Respiratory normal respiratory effort, lungs clear to auscultation Cardiovascular RRR, no murmur, no edema Gastrointestinal (Abdomen) normal bowel sounds, soft, nontender, no hepatosplenomegaly Skin L toe bandaged C/D/I Psychiatric A+Ox3, euthymic affect Discharge Data Allergies Allergy/AdvReac Type Severity Reaction Status Date / Time Penicillins Allergy Unknown HIVES Verified 08/27/19 14:47 Consultations 08/27/19 15:07 ED Decision to Admit Stat Hospital Course (1) Pneumonia: 89-year-old man with past medical history of hypertension, BPH, Parkinson's disease, essential tremors, prostate cancer status post radiation with radiation injury to his lower bladder and rectal sphincters, 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 The following was the medical management during stay here: Pneumonia CXR- Peripheral infiltrate in the left mid to lower lung Cefepime/Vanco/azithromycin started on admission. DC'd Cefepime/Vanco, cont Azithromycin, started Rocephin. On d/c, will cont PO Azithromycin for 3 additional days Procalcitonin- 0.86 Blood cultures/sputum culture NGTD Urine Legionella- pending Left Toe Toe XR- Soft tissue swelling and a small focal skin ulceration at the distal tip of the first toe. No underlying bony destruction to suggest osteomyelitis Follows with wound care at [facility] No concerns for acute infection this infection On d/c, [facility] will arrange an appointment and then call the pt. At [facility], engineer automated equipment, Dr. Silvestre Benavides, will follow up with the patient. Essential hypertension Resume home BP meds on d/c. They were held here 2/2 borderline low pressures Afib On ASA, not on anticoagulation BPH Continue Flomax Parkinsons disease Supportive care and fall precaution DVT Prophylaxis: Heparin. At time of d/c, pt had no other acute concerns or complaints. Total Time Total Time Spent Total Time Spent (In Minutes): <30 Discharge Plan Discharge Items Patient Disposition: Trans Resident Long-Term Care Reason For Visit: SEPSIS,PNEUMONIA Discharge Diagnosis: pna Activity: Per Instructions section Non-emergency contact: Primary Care Provider Call non-emergency contact if: you have any medication questions and your symptoms worsen Follow-up/Referrals: [facility] [Provider Group] (Please, follow up at [facility] for care of your left great toe. *A nurse from the clinic will contact you with the appointment information. The clinic is located at [address] in [place]. If you have any questions, call the clinic at [phone].) Debora Briggs MD [Primary Care Provider] - 09/03/19 3:30 pm (Please, follow up with Dr. Debora Briggs' associate, Dr. Dusty Fatima, on SundaySeptember 03 at 3:30 pm. THIS APPOINTMENT WILL BE AT THE [facility] LOCATION BECAUSE THERE WERE NO AVAILABLE APPOINTMENTS AT THE [facility] OFFICE. THE APPOINTMENT WILL BE IN [address] OF THE [facility] NEXT TO THIS HOSPITAL. 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 The following was the medical management during stay here: Pneumonia CXR- Peripheral infiltrate in the left mid to lower lung Cefepime/Vanco/azithromycin started on admission. DC'd Cefepime/Vanco, cont Azithromycin, started Rocephin. On d/c, will cont PO Azithromycin for 3 additional days (sent to pharmacy [facility]) Procalcitonin- 0.86 Blood cultures/sputum culture NGTD Urine Legionella- pending Left Toe Toe XR- Soft tissue swelling and a small focal skin ulceration at the distal tip of the first toe. No underlying bony destruction to suggest osteomyelitis Follows with wound care at [facility] No concerns for acute infection this infection On d/c, [facility] will arrange an appointment and then call the pt. At [facility], engineer automated equipment, Dr. Silvestre Benavides, will follow up with the patient. -For home nursing: Please change dressings 3x/week Essential hypertension Resume home BP meds on d/c. They were held here 2/2 borderline low pressures Afib On ASA, not on anticoagulation BPH Continue Flomax Parkinsons disease Supportive care and fall precaution DVT Prophylaxis: Heparin. At time of d/c, pt had no other acute concerns or complaints. Pending Studies at Discharge: No Stand-Alone Forms: My [facility] Skilled Items Patient informed of condition?: Yes DNR: Yes Discharge Level of Care: Other Communicable Disease: No Discharge Prognosis: Stable Lines: None Urinary Catheter: No Medications and DC Order Prescriptions: New azithromycin 250 mg tablet 250 mg PO DAILY 3 Days Qty: 3 RF: 0 Continued magnesium oxide 500 mg capsule 500 mg PO DAILY RF: 0 glucosamine sulfate 500 mg capsule 500 mg PO DAILY RF: 0 oxybutynin chloride 15 mg tablet extended release 24hr 15 mg PO DAILY Qty: 30 RF: 0 acetaminophen 325 mg tablet 325 mg PO DAILY PRN (Reason: Pain) RF: 0 zinc acetate 25 mg (zinc) Capsule 25 mg PO QAM RF: 0 aspirin 81 mg Tablet,Delayed Release (Dr/Ec) 81 mg PO QAM RF: 0 propranolol 10 mg tablet 20 mg PO TID RF: 0 potassium 99 mg Tablet 99 mg PO QAM RF: 0 ascorbic acid (vitamin C) [Vitamin C] 500 mg Tablet 500 mg PO QAM RF: 0 tamsulosin 0.4 mg capsule 0.4 mg PO HS RF: 0 vitamin B complex Tablet 1 tab PO QAM RF: 0 furosemide 20 mg tablet 40 mg PO 3XWK RF: 0 furosemide 20 mg tablet 20 mg PO QAM RF: 0 vitamin E 400 unit Capsule 400 unit PO HS RF: 0 cranberry 500 mg Capsule 1,000 mg PO QAM RF: 0 cholecalciferol (vitamin D3) [Vitamin D3] 1,000 unit Tablet 1,000 unit PO QAM RF: 0 alpha lipoic acid 100 mg Capsule 100 mg PO QAM RF: 0 Probiotic 3 billion cell Capsule 3,000 mmu cells PO QAM RF: 0 [place]-3 350 mg-235 mg- 90 mg-597 mg Capsule,Delayed Release(Dr/Ec) 1 cap PO HS RF: 0 Cuarcumin 95(Turmeric) 400 mg PO QAM RF: 0 Magnesium Otc 99mg 99 mg PO QAM RF: 0 Menaquinone-7 (Vit K2) 1 cap PO QAM RF: 0 Discharge Orders: Discharge Order (Routine); Ordered 08/29/19 Ordered By: Fredrick Fatima Admission Data Admit Date/Time: 08/27/19 17:13 Attending Provider: Stevo Caldera Admit Provider: Alvin Aldana Primary Care Provider: Debora Briggs Other Providers: Alvin Aldana Supervising Physician Co-Signing Physician Notes I personally examined the patient and verified all little points of history and exam, discussed case, and agree with decision making with Dr Fatima feeling alright. no new complaints or problems. main concern is when he has follow ups his daughter is out of town and "she's my wheels" Vitals noted, in general he is awake and alert pleasant no distress. HEENT normocephalic atraumatic mucous members moist. Breathing is unlabored no accessory muscles good effort. Imaging reviewed both reports and in person Pneumonia with sepsis present on admissionimproving well. no significant symptoms. from a pneumonia standpoint really didn't have enough illness to require hospitalization - was more due to concern on what truly was going on -- so safe to go home and finish course of zithromax for presumed strep pneumoniae Toe ulcerclinically does not look infected. Xray finding of possible subtle fracture discussed again. anticipate all healing more or less without assistance, but given the situation, asked case management to facilitate wound/podiatry to follow and ensure no complications Stable for home, asked case management to help with transports to visits. Resident Activity Tracking Resident Involvement: Resident Care Provided Care Provided: Adult Hospital Medicine
--- NOTE | 2019-08-29 18:49 | Billing Data ---
Coding Level of Care Code 71629 Subseq Hosp Care Lvl 2
--- NOTE | 2019-08-29 18:52 | Hospitalist Progress Note ---
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 The following was the medical management during stay here: Pneumonia CXR- Peripheral infiltrate in the left mid to lower lung Cefepime/Vanco/azithromycin started on admission. DC'd Cefepime/Vanco, cont Azithromycin, started Rocephin. On d/c, will cont PO Azithromycin for 3 additional days Procalcitonin- 0.86 Blood cultures/sputum culture NGTD Urine Legionella- pending Left Toe Toe XR- Soft tissue swelling and a small focal skin ulceration at the distal tip of the first toe. No underlying bony destruction to suggest osteomyelitis Follows with wound care at [facility] No concerns for acute infection this infection On d/c, [facility] will arrange an appointment and then call the pt. At [facility], accounts receivable specialist, Dr. Silvestre Benavides, will follow up with the patient. Essential hypertension Resume home BP meds on d/c. They were held here 2/2 borderline low pressures Afib On ASA, not on anticoagulation BPH Continue Flomax Parkinsons disease Supportive care and fall precaution DVT Prophylaxis: Heparin. Dispo: D/C tomorrow back to [facility]. Supervising Physician Co-Signing Physician Notes I personally examined the patient and verified all little points of history and exam, discussed case, and agree with decision making with Dr Escalona feeling alright. was OK for discharge earlier in the day then was worried he might be feeling sicker - dr escalona held discharge to follow his progress Vitals noted, in general he is awake and alert pleasant no distress. HEENT normocephalic atraumatic mucous members moist. Breathing is unlabored no accessory muscles good effort. Pneumonia with sepsis present on admissionimproving well. continue course of antibiotics Toe ulcerclinically does not look infected. Xray finding of possible subtle fracture discussed again. anticipate all healing more or less without assistance, but given the situation, asked case management to facilitate wound/podiatry to follow and ensure no complications follow through the night since he's feeling a little worse, although suspect it's just as he's starting to break up the pneumonia that he has Subjective 89 yo M found in bed this AM in NAD. No reported overnight events. Breathing ok. Tolerating PO intake. No issues with toe. No other acute concerns or complaints. Pt was initially ok with transport home but later in evening refused citing that he thinks he has the flu because of L shoulder pain that is similar to pain he felt after getting flu shot in s that eventually gave him the flu. Ok for d/c tomorrow though. Review of Systems Review of Systems: All systems reviewed & are unremarkable except as noted in HPI & below Physical Exam Constitutional: WD/WN, vitals as above Eyes: PERRL, conjunctivae normal, anicteric sclerae ENMT: external ear and nose normal, oropharynx normal Respiratory: normal respiratory effort, lungs clear to auscultation Cardiovascular: RRR, no murmur, no edema Gastrointestinal (Abdomen): normal bowel sounds, soft, nontender, no hepatosplenomegaly Psychiatric: A+Ox3, euthymic affect Results & Data Vital Signs (Past 12 Hours) Vital Signs Temp Pulse Resp BP BP Pulse Ox 08/29/19 15:15 36.8 C 73 20 132/79 97 08/29/19 07:56 36.4 C L 90 18 137/74 97 Laboratory Results Laboratory Results - last 24 hr 08/28/19 08/29/19 08/29/19 01:15 06:31 06:31 WBC 9.63 RBC 2.97 L Hgb 9.2 L Hct 27.6 L MCV 92.9 MCH 31.0 MCHC 33.3 RDW Std Deviation 50.8 H RDW Coeff of Bayron 14.9 H Plt Count 206 MPV 9.6 Immature Gran % (Auto) 0.3 Neut % (Auto) 72.7 Lymph % (Auto) 12.8 [place] % (Auto) 10.7 Eos % (Auto) 3.2 Baso % (Auto) 0.3 Immature Gran # (Auto) 0.03 H Neut # (Auto) 7.00 H Lymph # (Auto) 1.23 [place] # (Auto) 1.03 H Eos # (Auto) 0.31 Baso # (Auto) 0.03 Sodium 144 Potassium 4.1 D Chloride 113 H Carbon Dioxide 24 Anion Gap 7.0 BUN 14 Creatinine 1.18 Est Cr Clr Drug Dosing 44.5 Est GFR ( Amer) 63.5 Est GFR (Non-Af Amer) 54.8 BUN/Creatinine Ratio 11.8 Glucose 90 Calcium 8.9 Urine Legionella Ag NOT DETECTED Medications Administered Current Inpatient Medications Acetaminophen (Tylenol) 650 mg PO Q4H PRN PRN Reason: Pain or Fever Stop: 09/26/19 17:12 Last Admin: 08/28/19 08:28 Dose: 650 mg Documented by: Al Hydrox/Mg Hydrox/Simethicone (Maalox) 15 ml PO Q4H PRN PRN Reason: Dyspepsia Stop: 09/26/19 17:12 Aspirin (Ecotrin Ectab) 81 mg PO QAM [facility] Stop: 09/27/19 08:59 Last Admin: 08/29/19 08:02 Dose: 81 mg Documented by: Azithromycin (Zithromax) 500 mg PO DAILY@1900 [facility]UTHIE; Protocol Stop: 09/03/19 18:59 Heparin Sodium (Porcine) (Heparin Sodium (Porcine)) 5,000 units SQ Q12 [facility] Stop: 09/26/19 20:59 Last Admin: 08/29/19 08:02 Dose: 5,000 units Documented by: Sodium Chloride (Nss 1000ml) 1,000 mls @ 70 mls/hr IV .[id number] [facility] Stop: 09/26/19 17:14 Last Admin: 08/29/19 11:33 Dose: 70 mls/hr Documented by: Azithromycin 500 mg/ Dextrose 255 mls @ 127.5 mls/hr IV Q24H [facility] Stop: 08/29/19 23:59 Last Infusion: 08/28/19 22:01 Dose: Infused Documented by: Ceftriaxone Sodium 2,000 mg/ (Dextrose) 70 mls @ 100 mls/hr IV Q24H [facility]; Protocol Stop: 09/04/19 10:59 Last Infusion: 08/29/19 12:26 Dose: Infused Documented by: Lactobacillus Acidophilus (Floranex) 4 tab PO DAILY [facility] Stop: 09/27/19 08:59 Last Admin: 08/29/19 08:02 Dose: 4 tab Documented by: Magnesium Hydroxide (Milk Of Magnesia) 30 ml PO Q12H PRN PRN Reason: Constipation Stop: 09/26/19 17:12 Magnesium Oxide (Mag-Ox) 400 mg PO DAILY [facility] Stop: 09/27/19 08:59 Last Admin: 08/29/19 08:02 Dose: 400 mg Documented by: Oxybutynin Chloride (Ditropan Xl) 15 mg PO DAILY [facility] Stop: 09/27/19 08:59 Last Admin: 08/29/19 08:02 Dose: 15 mg Documented by: Polyethylene Glycol (Miralax Powder Packet) 17 gm PO DAILY PRN PRN Reason: Constipation Stop: 09/26/19 17:12 Tamsulosin HCl (Flomax) 0.4 mg PO HS [facility] Stop: 09/26/19 20:59 Last Admin: 08/28/19 21:02 Dose: 0.4 mg Documented by: Zolpidem Tartrate (Ambien) 5 mg PO HS PRN PRN Reason: Sleep Stop: 09/26/19 17:12 Resident Activity Tracking Resident Involvement: Resident Care Provided Care Provided: Adult Hospital Medicine (1) Pneumonia Laterality: unspecified laterality Lung location: unspecified part of lung Pneumonia type: due to unspecified organism Qualified Code(s): J18.9 - Pneumonia, unspecified organism
[2019-08-29] MEDS: AZITHROMYCIN 500 MG in DEXTROSE 5% 250 ML IV SCH (19:52)
[2019-08-29] MEDS: TAMSULOSIN HCL 0.4 MG CAP PO SCH (20:59)
[2019-08-30] MEDS: SODIUM CHLORIDE 0.9% 1000ML 1,000 ML IV SCH (02:35)
[2019-08-30 07:14] LABS: Hematocrit (blood only) 28.9 % (42-52); Hemoglobin 9.6 g/dL (14.0-18.0); Mean Corpuscular Hgb Conc 33.2 g/dL (32-36); Mean Corpuscular Volume 93.2 fL (80-100); Mean Platelet Volume 9.8 fL (7.4-10.4); Platelet Count 206 K/uL (130-400); RDW Coefficient of Variation 14.8 % (11.5-14.5); RDW Standard Deviation 50.4 fL (36.4-46.3); White Blood Count 7.74 K/uL (4.8-10.8)
[2019-08-30] MEDS: ASPIRIN 81 MG ECTAB PO SCH (07:42)
[2019-08-30] MEDS: OXYBUTYNIN CHLORIDE XL 5 MG TABCR PO SCH (07:42)
[2019-08-30] MEDS: LACTOBACILLUS ACIDOPHILUS (FLORANEX) TAB PO SCH (07:42)
[2019-08-30] MEDS: MAGNESIUM OXIDE 400 MG TAB PO SCH (07:42)
[2019-08-30] MEDS: HEPARIN SOD 5,000 UNIT/0.5 ML VIAL SQ SCH (07:42)
[2019-08-30] MEDS: cefTRIAXone SODIUM 2,000 MG in DEXTROSE 5% 50 ML IV SCH (10:46)
--- NOTE | 2019-08-30 17:42 | Billing Data ---
Coding Level of Care Code D/C Day Management <30 mins
[2019-08-30] MEDS ORDERED: AZITHROMYCIN 250 MG TAB PO SCH (19:00)
== END 2019-08-30 12:13 | disposition home or self-care (01) | DRG 871 ==
LOC: ED 12:56 → 2S 17:13 → SUATTDRO 17:13 → 2S 17:39 → 2N 08-28 11:38